=== PATIENT | male | born 1965 | race Caucasian/White ===

== ENCOUNTER → 2017-03-22 | Outpatient (CLI) | payer OTHER ==
[~2017-03-22] MED LIST: ANTIHISTAMINE; LEVO75TA PO; MULT1CAP16 PO; PANT1TAB48 PO
[2017-03-22 08:12] LABS: COMPLETE YES; HEMATOCRIT 42.3 % (42-52); IG% 0.4 %; LYMPH % 16.3 %; LYMPH ABS # 1.36 K/uL (1.2-3.4); MEAN CELL VOLUME 87.2 fL (80-100); MEAN CORPUSCULAR HEMOGLOBIN 30.3 pg (25-34); MEAN CORPUSCULAR HGB CONC 34.8 g/dl (32-36); MEAN PLATELET VOLUME 9.5 fL (7.4-10.4); MONO % 4.6 %; NEUT % 78.7 %; PLATELET COUNT 246 K/uL (130-400); RED BLOOD COUNT 4.85 M/uL (4.7-6.1); WHITE BLOOD COUNT 8.32 K/uL (4.8-10.8)
[2017-03-22 08:29] LABS: BLOOD UREA NITROGEN 18 mg/dl (7-18); CREATININE 0.73 mg/dl (0.60-1.40); GLUCOSE 118 mg/dl (70-99)
[2017-03-22 08:30] LABS: ALT/SGPT 36 U/L (12-78); BUN/CREATININE RATIO 25.2 (10-20); CALCIUM 8.6 mg/dl (8.5-10.1); CARBON DIOXIDE 23 mmol/L (21-32); CHLORIDE 110 mmol/L (98-107); CHOLESTEROL 208 mg/dl (0-200); POTASSIUM 4.1 mmol/L (3.5-5.1); SODIUM 140 mmol/L (136-145)
[2017-03-22 08:40] LABS: ALB/GLOB RATIO 1.1 (0.9-2); ALKALINE PHOSPHATASE 57 U/L (45-117); AST/SGOT 20 U/L (15-37); CHOLESTEROL/HDL RATIO 3.8; HDL CHOLESTEROL 55 mg/dl; LDL CHOLESTEROL CALCULATED 139 mg/dl; TRIGLYCERIDES 69 mg/dl (0-150); VERY LOW DENSITY LIPOPROT CALC 14 mg/dl
[2017-03-22 10:00] LABS: LYME DISEASE AB IGG NEG (NEG); LYME DISEASE AB IGM NEG (NEG)
== END | disposition home or self-care (01) ==
LOC: C.LABSPEC 07:48
PROVIDERS: ATTEND Nurse Practitioner
DX: E03.9 Hypothyroidism, unspecified (principal); Z13.220 Encounter for screening for lipoid disorders; R20.2 Paresthesia of skin; R51 Headache

== ENCOUNTER → 2017-03-27 | Outpatient (CLI) | payer OTHER ==
[~2017-03-27] MED LIST changes: +GADAVIST IV PRN
--- NOTE | 2017-03-27 15:44 | DIAGNOSTIC IMAGING REPORT ---
Brain MRI WITH AND WITHOUT CONTRAST HISTORY: MYELOPATHY, LIMB WEAKNESS, PARESTHESIA, headache TECHNIQUE: Multiplanar multisequence MRI of the brain was performed both before and after the intravenous administration of contrast. COMPARISON STUDY: None. FINDINGS: There are no areas of restricted diffusion to suggest acute infarction. The midline structures are intact. Small retention cyst within the left maxillary sinus and a few partially opacified bilateral inferior mastoid air cells. There is a single punctate focus of T2 hyperintensity within the left parietal subcortical white matter. This is of doubtful clinical significance. Remaining brain parenchyma demonstrates a normal signal intensity. The ventricles and sulci are within normal limits for age. There is no mass, hematoma, midline shift. The major vascular flow-voids at the skull base are well maintained. Postcontrast sequences show no areas of abnormal enhancement. IMPRESSION: No acute intracranial abnormality. Electronically signed by: Kota Madsen M.D. 03/27/2017 3:42 PM Dictated Date/Time: 03/27/2017 3:33 PM
--- NOTE | 2017-03-27 16:49 | DIAGNOSTIC IMAGING REPORT ---
MRI OF THE CERVICAL SPINE WITHOUT CONTRAST CLINICAL HISTORY: Myelopathy. Left-sided weakness. Paresthesias. COMPARISON: MRI of the cervical spine February 02, 2015. TECHNIQUE: Utilizing a 1.5 Jaimee magnet and dedicated coil, multiplanar, multiecho imaging of the cervical spine was performed without IV contrast. FINDINGS: Straightening of the normal cervical lordosis is noted. Alignment is otherwise anatomic. Vertebral body heights are maintained. There is no suspicious marrow replacement. A large T1 and T2 hyperintense lesion within the C7 vertebra is unchanged and consistent with a hemangioma. No intracanalicular mass or fluid collection is present. The brain will be reported separately. The paravertebral soft tissues are unremarkable. Cervical cord signal is normal. C2-C3: The central canal and neural foramen are patent. C3-C4: The central canal is patent. There is moderate to severe left neural foraminal stenosis due to uncovertebral projecting facet arthrosis. C4-C5: The central canal is patent. There is moderate right and mild left neural foraminal stenosis. C5-C6: A large left paracentral broad-based disc protrusion is noted that results in moderate narrowing of the left aspect of the canal. This indents the ventral aspect of the cord. There is no cord signal abnormality. This has mildly increased in size since exam of February 02, 2015. Severe left neural foraminal stenosis is noted. There is mild right neural foraminal stenosis at this level. C6-C7: Broad-based disc bulge is noted that result in mild narrowing of the central canal. This is unchanged since prior exam. Note is made of moderate to severe right neural foraminal stenosis. C7-T1: Disc bulge with small central disc protrusion results in mild narrowing of the central canal. Neural foramen are patent. IMPRESSION: 1. Large left paracentral broad-based disc protrusion at C5-C6 that results in moderate narrowing of the central canal. This indents the ventral aspect of the cord without cord signal abnormality. Mild increase in size of disc herniation since exam of February 02, 2015. 2. Mild central canal stenosis at C6-C7 which is similar to prior exam. 3. Moderate to severe multilevel neural foraminal stenosis, as detailed above. Electronically signed by: Oli Castano M.D. 03/27/2017 4:48 PM Dictated Date/Time: 03/27/2017 3:32 PM
== END | disposition home or self-care (01) ==
LOC: C.MRIBC 14:04
PROVIDERS: ATTEND Nurse Practitioner
DX: M50.20 Other cervical disc displacement, unspecified cervical region (principal); R29.898 Other symptoms and signs involving the musculoskeletal system; R20.2 Paresthesia of skin; R51 Headache

== ENCOUNTER → 2018-03-13 | Outpatient (CLI) | payer OTHER ==
[~2018-03-13] MED LIST changes: +ESCI1TAB9 PO; -GADAVIST IV PRN; +MELO7.5T5 PO; +OXYC-57 PO; -PANT1TAB48 PO; +TAMS0.4C38 PO
== END | disposition home or self-care (01) ==
LOC: C.LAB 12:03
PROVIDERS: ATTEND Internal Medicine
DX: Z00.00 Encounter for general adult medical examination without abnormal findings (principal)

== ENCOUNTER 2020-06-20 14:17 | Inpatient (IN) ==
[2020-06-20] MEDS ORDERED: SODIUM CHLORIDE 0.9% 1000ML 1,000 ML IV ONE (14:32)
[2020-06-20] MEDS ORDERED: ACETAMINOPHEN 325 MG TAB PO STA (14:40)
--- NOTE | 2020-06-20 14:40 | Emergency Department Note ---
Impression & Plan Hypoxia, COVID-19, Febrile, Post-op pain ED Provider Note NAME: SILVIA MUNGUIA AGE: 55 SEX: M : 1965 ARRIVES VIA: Ambulance INFORMANT: Patient ED PROVIDER(S): Ponce Kumar DO CHIEF COMPLAINT: Shortness of breath confusion HPI: Patient is a 55-year-old gentleman who presents to the ER for multiple complaints. He initially had surgery on his left knee back in . He had complications and consequently had surgery done at [facility] this past Saturday. He was initially tested for Covid and which came back negative for the procedure. On Saturday after he had the surgery he was notified that his Covid testing was positive. He was notified after the surgery as he was part of the forecast study and all of his testing for that came back positive. He notes on Saturday is when he started with a cough, shortness of breath and congestion. He also started with rigors and shaking chills. He has been having some intermittent confusion when he is waking up from naps or from sleeping. This generally occurs in the morning. He called EMS and was brought in for further work-up. ROS: See above HPI for pertinent positives & negatives. A total of 10 systems reviewed and were otherwise negative. PAST MEDICAL HISTORY:See Below PAST SURGICAL HISTORY:See Below FAMILY HISTORY:See Below SOCIAL HISTORY:See Below HOME MEDICATIONS:See Below ALLERGIES:See Below VITALS:See Below PHYSICAL EXAMINATION: GENERAL: Sitting up in bed, alert, mild distress, nontoxic, on nasal cannula EYE EXAM: normal conjunctiva. PERRL and EOM's grossly intact. OROPHARYNX: Mask in place NECK: supple, no nuchal rigidity, no adenopathy, non-tender LUNGS: Clear to auscultation. Normal chest wall mechanics HEART: no murmurs, S1 normal and S2 normal ABDOMEN: abdomen soft, non-tender, normo-active bowel sounds, no masses, no rebound or guarding. UPPER EXTREMITIES: upper extremities are grossly normal. LOWER EXTREMITIES: Left lower extremity with knee brace and Juan wrap in place which were removed. Incision appears to be clean dry and intact. Fair amount of bruising and swelling of the left knee. DP and PT 2 out of 4. NEURO EXAM: Normal sensorium, cranial nerves II-XII grossly intact, normal speech, no gross weakness of arms. MEDICAL DECISION MAKING: Patient is a 55-year-old male who is Covid positive. For left knee surgery last Saturday who presents the ER for confusion, fevers, cough and shortness of breath. IV was established blood work was obtained. Labs show a mild leukopenia 4.4 thousand. Faint anemia 12. INR was unremarkable. BMP with mild hyponatremia. Mild hypokalemia at 3.4 which was repleted orally. He was given 1.5 L of IV fluids. He was given oral Tylenol. Lactate was normal. LFTs and bilirubin was unremarkable. Troponin was detectable but not positive. Pro-Wes was essentially negative. UA was clean. CT angio of the chest showed multifocal pneumonia. There is also trace pleural effusion. He was given a dose of IV Levaquin. With his procalcitonin being normal I do favor that this is likely all reactive secondary to coronavirus. Discussed steroids as well as remdesivir. Will defer to the hospitalist for this as at this time as he wanted to hold on steroids and remdesivir. Patient remained on nasal cannula and was admitted to the hospital for further work-up. Triage Nursing notes reviewed. Prior medical records reviewed Vital Signs: reviewed and remarkable for febrile and hypertensive and hypoxic Differential diagnosis: Differential diagnosis includes etiologies such as sepsis, UTI, pneumonia, metabolic, electrolyte abnormalities, cardiac sources, intracerebral event, toxicologic, neurological, as well as others were entertained. ER treatment provided: See below Diagnostics interpreted by me: ECG: Sinus rhythm rate 88 Normal axis T wave inversion in lead III No PVCs QTC 415 Cardiac Monitoring: An order was placed for continuous cardiac monitoring. The monitor shows a rate of 88 with sinus rhythm. Laboratory studies: As stated above and show below. Imaging studies: CT Angio of the chest shows bilateral infiltrates Consultation(s): Discussed with Dr. Gr for further evaluation ED COURSE: Procedures: none Critical Care: I have personally spent 50 minutes of critical care time in the direct management of this patient. This includes bedside care, interpretation of diagnostic studies, and testing, discussion with consultants, patient, and [facility] ly members, and other required patient management activities. This 50 minutes is in excess of all separately billable procedures. Past Med/Surg History Medical History (Updated 06/20/20 @ 17:47 by Ponce Kumar DO) Anxiety GERD (gastroesophageal reflux disease) History of atrial fibrillation 2009 - s/p ablation - follows w/ Dr. Kinney History of atrial flutter History of colon polyps History of nephrolithiasis Hypothyroidism Lumbar spondylosis Right knee DJD Rupture of left quadriceps tendon Snores Surgical History History of cardiac catheterization no stents History of cardiac radiofrequency ablation x 2 (A.fib/A.flutter) History of carpal tunnel release Lt History of colonoscopy History of hernia repair History of lithotripsy History of repair of ACL Rt x 2 History of right inguinal hernia repair Hx of LASIK BL Family History Other No family history of adverse response to anesthesia Social History Smoking Status: Never smoker Second Hand Exposure: Yes (as a child); Hx Alcohol Use: Yes Alcohol type: beer, wine and hard liquor Hx Substance Use: No Preferred Language: Lithuanian Communication Ability: Effective 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 Required: No Current Living Situation: Spouse Feels Safe at Home: Yes Allergies Allergies Allergy/AdvReac Type Severity Reaction Status Date / Time almond Allergy Anaphylaxis Verified 06/20/20 16:56 apple Allergy Anaphylaxis Verified 06/20/20 16:56 bee venom protein (honey bee) Allergy Anaphylaxis Verified 06/20/20 16:57 carrot Allergy Anaphylaxis Verified 06/20/20 16:57 Home Meds Home Medications Medication Instructions Recorded Confirmed escitalopram oxalate 20 mg tablet 20 mg PO DAILY 07/21/19 06/20/20 multivitamin 1 tab PO DAILY 07/21/19 06/20/20 pantoprazole 40 mg PO DAILY PRN 01/16/20 06/20/20 epinephrine [EpiPen 2-Alvarez] 0.3 mg IM Q4H PRN 06/20/20 06/20/20 levothyroxine 88 mcg PO DAILY 06/20/20 06/20/20 Previous Rx's Medication Instructions Recorded aspirin [Adult Low Dose Aspirin] 81 mg PO BID #60 tab 01/20/20 oxycodone-acetaminophen [Percocet] 1 - 2 tab PO Q6H PRN #24 tab 01/20/20 Results & Data (ED) Vital Signs Vital Signs - 24 hr 06/20/20 14:21 06/20/20 14:28 06/20/20 14:30 Temperature Temperature Source Pulse Rate 88 87 86 Pulse Rate from SpO2 Sensor 87 87 86 Respiratory Rate 23 23 24 Blood Pressure 146/75 H Blood Pressure Mean 82 Pulse Oximetry 92 91 96 Oxygen Delivery Method Nasal Cannula Nasal Cannula Nasal Cannula Oxygen Flow Rate 3 3 3 Fraction of Inspired Oxygen SaO2/FiO2 Ratio Sepsis Recent Fever Within 48 Hours Sepsis New/Unexplained Change in Mental Status Sepsis Action Taken by Nursing 06/20/20 14:36 06/20/20 14:39 06/20/20 14:40 Temperature 39.5 C H Temperature Source Oral Pulse Rate Pulse Rate from SpO2 Sensor Respiratory Rate 20 Blood Pressure 146/75 H Blood Pressure Mean 98 Pulse Oximetry 87 L 97 Oxygen Delivery Method Room Air Nasal Cannula Nasal Cannula Oxygen Flow Rate 3 3 Fraction of Inspired Oxygen 3 SaO2/FiO2 Ratio 2900 Sepsis Recent Fever Within 48 Hours Yes Sepsis New/Unexplained Change in Mental Status Yes Sepsis Action Taken by Nursing Physician Notified 06/20/20 15:02 06/20/20 15:03 06/20/20 15:30 Temperature Temperature Source Pulse Rate 82 81 83 Pulse Rate from SpO2 Sensor 81 80 83 Respiratory Rate 23 24 18 Blood Pressure 131/71 Blood Pressure Mean 85 Pulse Oximetry 97 99 99 Oxygen Delivery Method Nasal Cannula Nasal Cannula Nasal Cannula Oxygen Flow Rate 3 3 3 Fraction of Inspired Oxygen SaO2/FiO2 Ratio Sepsis Recent Fever Within 48 Hours Sepsis New/Unexplained Change in Mental Status Sepsis Action Taken by Nursing 06/20/20 15:31 06/20/20 16:00 06/20/20 16:37 Temperature Temperature Source Pulse Rate 82 81 Pulse Rate from SpO2 Sensor 84 81 80 Respiratory Rate 22 20 Blood Pressure 133/78 121/59 L Blood Pressure Mean 91 71 Pulse Oximetry 98 97 Oxygen Delivery Method Nasal Cannula Nasal Cannula Oxygen Flow Rate 3 3 Fraction of Inspired Oxygen SaO2/FiO2 Ratio Sepsis Recent Fever Within 48 Hours Sepsis New/Unexplained Change in Mental Status Sepsis Action Taken by Nursing 06/20/20 16:41 06/20/20 16:42 06/20/20 16:50 Temperature 37.3 C Temperature Source Oral Pulse Rate 73 74 Pulse Rate from SpO2 Sensor 73 75 Respiratory Rate 22 22 Blood Pressure 128/70 Blood Pressure Mean 75 Pulse Oximetry 98 96 Oxygen Delivery Method Nasal Cannula Nasal Cannula Oxygen Flow Rate 3 3 Fraction of Inspired Oxygen SaO2/FiO2 Ratio Sepsis Recent Fever Within 48 Hours Sepsis New/Unexplained Change in Mental Status Sepsis Action Taken by Nursing 06/20/20 17:00 06/20/20 17:30 Temperature Temperature Source Pulse Rate 72 74 Pulse Rate from SpO2 Sensor 73 75 Respiratory Rate 20 24 Blood Pressure 116/64 115/66 Blood Pressure Mean 79 75 Pulse Oximetry 98 97 Oxygen Delivery Method Nasal Cannula Nasal Cannula Oxygen Flow Rate 3 3 Fraction of Inspired Oxygen SaO2/FiO2 Ratio Sepsis Recent Fever Within 48 Hours Sepsis New/Unexplained Change in Mental Status Sepsis Action Taken by Nursing Laboratory Data Result diagrams: 06/20/20 14:30 06/20/20 14:30 Lab Results 06/20/20 06/20/20 06/20/20 Range/Units 14:30 14:30 14:30 WBC 4.44 L (4.8-10.8) K/uL RBC 4.13 L (4.7-6.1) M/uL Hgb 12.4 L (14.0-18.0) g/dL POC Hgb (14.0-18.0) g/dl Hct 36.4 L (42-52) % POC Hct (42-52) % MCV 88.1 (80-100) fL MCH 30.0 (25-34) pg MCHC 34.1 (32-36) g/dL RDW Std Deviation 44.6 (36.4-46.3) fL RDW Coeff of Danika 13.7 (11.5-14.5) % Plt Count 204 (130-400) K/uL MPV 9.1 (7.4-10.4) fL Immature Gran % (Auto) 0.2 % Neut % (Auto) 69.6 % Lymph % (Auto) 23.0 % Pender % (Auto) 7.0 % Eos % (Auto) 0.0 % Baso % (Auto) 0.2 % Neut # (Auto) 3.09 (1.4-6.5) K/uL Lymph # (Auto) 1.02 L (1.2-3.4) K/uL Pender # (Auto) 0.31 (0.11-0.59) K/uL Eos # (Auto) 0.00 (0-0.5) K/uL Baso # (Auto) 0.01 (0-0.2) K/uL Immature Gran # (Auto) 0.01 (0.00-0.02) K/uL PT 11.0 (9.0-12.0) Seconds INR 1.0 (0.9-1.1) APTT 31.8 H (21.0-31.0) Seconds PTT Ratio 1.1 POC Sodium (135-144) mmol/L Sodium 133 L (136-145) mmol/L POC Potassium (3.3-5.0) mmol/L Potassium 3.4 L (3.5-5.1) mmol/L POC Chloride (101-112) mmol/L Chloride 98 (98-107) mmol/L Carbon Dioxide 30 (21-32) mmol/L POC Total CO2 (24-31) mmol/L Anion Gap 5.0 (3-11) POC Anion Gap (16-25) mmol/L POC BUN (7-18) mg/dl BUN 13 (7-18) mg/dl Creatinine 1.00 (0.6-1.4) mg/dl POC Creatinine (0.6-1.3) mg/dl Est Cr Clr Drug Dosing 111.3 ml/min Est GFR ( Amer) 97.1 Est GFR (Non-Af Amer) 83.8 BUN/Creatinine Ratio 12.7 (10-20) Glucose 102 H (70-99) mg/dl POC Glucose (other) (70-99) mg/dl Lactate (0.4-2.0) mmol/L Calcium 8.3 L (8.5-10.1) mg/dl POC Ioniz Calcium Judith (1.12-1.32) mmol/l Magnesium 2.1 (1.8-2.4) mg/dl Total Bilirubin 0.7 (0.2-1) mg/dl AST 66 H (15-37) U/L ALT 45 (12-78) U/L Alkaline Phosphatase 72 (45-117) U/L Troponin I 0.029 (0-0.045) ng/ml Total Protein 7.1 (6.4-8.2) gm/dl Albumin 3.2 L (3.4-5.0) gm/dl Globulin 3.9 (2.5-4.0) gm/dl Albumin/Globulin Ratio 0.8 L (0.9-2) Procalcitonin (0-0.5) ng/ml Urine Color Urine Appearance (Clear) Urine pH (4.5-7.5) Ur Specific Groom (1.000-1.030) Urine Protein (Negative) Urine Glucose (UA) (Negative) Urine Ketones (Negative) Urine Blood (Negative) Urine Nitrite (Negative) Urine Bilirubin (Negative) Urine Urobilinogen (Negative) Ur Leukocyte Esterase (Negative) Urine WBC (Auto) (0-5) /hpf Urine RBC (Auto) (0-4) /hpf U Hyaline Cast (Auto) (0-5) /lpf U Epithel Cells (Auto) (0-5) /lpf Urine Bacteria (Auto) (Negative) 06/20/20 06/20/20 06/20/20 Range/Units 14:30 14:30 14:33 WBC (4.8-10.8) K/uL RBC (4.7-6.1) M/uL Hgb (14.0-18.0) g/dL POC Hgb 11.9 L (14.0-18.0) g/dl Hct (42-52) % POC Hct 35 L (42-52) % MCV (80-100) fL MCH (25-34) pg MCHC (32-36) g/dL RDW Std Deviation (36.4-46.3) fL RDW Coeff of Danika (11.5-14.5) % Plt Count (130-400) K/uL MPV (7.4-10.4) fL Immature Gran % (Auto) % Neut % (Auto) % Lymph % (Auto) % Pender % (Auto) % Eos % (Auto) % Baso % (Auto) % Neut # (Auto) (1.4-6.5) K/uL Lymph # (Auto) (1.2-3.4) K/uL Pender # (Auto) (0.11-0.59) K/uL Eos # (Auto) (0-0.5) K/uL Baso # (Auto) (0-0.2) K/uL Immature Gran # (Auto) (0.00-0.02) K/uL PT (9.0-12.0) Seconds INR (0.9-1.1) APTT (21.0-31.0) Seconds PTT Ratio POC Sodium 133 L (135-144) mmol/L Sodium (136-145) mmol/L POC Potassium 3.4 (3.3-5.0) mmol/L Potassium (3.5-5.1) mmol/L POC Chloride 93 L (101-112) mmol/L Chloride (98-107) mmol/L Carbon Dioxide (21-32) mmol/L POC Total CO2 27 (24-31) mmol/L Anion Gap (3-11) POC Anion Gap 18.0 (16-25) mmol/L POC BUN 11 (7-18) mg/dl BUN (7-18) mg/dl Creatinine (0.6-1.4) mg/dl POC Creatinine 0.9 (0.6-1.3) mg/dl Est Cr Clr Drug Dosing ml/min Est GFR ( Amer) Est GFR (Non-Af Amer) BUN/Creatinine Ratio (10-20) Glucose (70-99) mg/dl POC Glucose (other) 103 H (70-99) mg/dl Lactate 1.2 (0.4-2.0) mmol/L Calcium (8.5-10.1) mg/dl POC Ioniz Calcium Judith 1.04 L (1.12-1.32) mmol/l Magnesium (1.8-2.4) mg/dl Total Bilirubin (0.2-1) mg/dl AST (15-37) U/L ALT (12-78) U/L Alkaline Phosphatase (45-117) U/L Troponin I (0-0.045) ng/ml Total Protein (6.4-8.2) gm/dl Albumin (3.4-5.0) gm/dl Globulin (2.5-4.0) gm/dl Albumin/Globulin Ratio (0.9-2) Procalcitonin 0.08 (0-0.5) ng/ml Urine Color Urine Appearance (Clear) Urine pH (4.5-7.5) Ur Specific Groom (1.000-1.030) Urine Protein (Negative) Urine Glucose (UA) (Negative) Urine Ketones (Negative) Urine Blood (Negative) Urine Nitrite (Negative) Urine Bilirubin (Negative) Urine Urobilinogen (Negative) Ur Leukocyte Esterase (Negative) Urine WBC (Auto) (0-5) /hpf Urine RBC (Auto) (0-4) /hpf U Hyaline Cast (Auto) (0-5) /lpf U Epithel Cells (Auto) (0-5) /lpf Urine Bacteria (Auto) (Negative) 06/20/20 Range/Units 17:00 WBC (4.8-10.8) K/uL RBC (4.7-6.1) M/uL Hgb (14.0-18.0) g/dL POC Hgb (14.0-18.0) g/dl Hct (42-52) % POC Hct (42-52) % MCV (80-100) fL MCH (25-34) pg MCHC (32-36) g/dL RDW Std Deviation (36.4-46.3) fL RDW Coeff of Danika (11.5-14.5) % Plt Count (130-400) K/uL MPV (7.4-10.4) fL Immature Gran % (Auto) % Neut % (Auto) % Lymph % (Auto) % Pender % (Auto) % Eos % (Auto) % Baso % (Auto) % Neut # (Auto) (1.4-6.5) K/uL Lymph # (Auto) (1.2-3.4) K/uL Pender # (Auto) (0.11-0.59) K/uL Eos # (Auto) (0-0.5) K/uL Baso # (Auto) (0-0.2) K/uL Immature Gran # (Auto) (0.00-0.02) K/uL PT (9.0-12.0) Seconds INR (0.9-1.1) APTT (21.0-31.0) Seconds PTT Ratio POC Sodium (135-144) mmol/L Sodium (136-145) mmol/L POC Potassium (3.3-5.0) mmol/L Potassium (3.5-5.1) mmol/L POC Chloride (101-112) mmol/L Chloride (98-107) mmol/L Carbon Dioxide (21-32) mmol/L POC Total CO2 (24-31) mmol/L Anion Gap (3-11) POC Anion Gap (16-25) mmol/L POC BUN (7-18) mg/dl BUN (7-18) mg/dl Creatinine (0.6-1.4) mg/dl POC Creatinine (0.6-1.3) mg/dl Est Cr Clr Drug Dosing ml/min Est GFR ( Amer) Est GFR (Non-Af Amer) BUN/Creatinine Ratio (10-20) Glucose (70-99) mg/dl POC Glucose (other) (70-99) mg/dl Lactate (0.4-2.0) mmol/L Calcium (8.5-10.1) mg/dl POC Ioniz Calcium Judith (1.12-1.32) mmol/l Magnesium (1.8-2.4) mg/dl Total Bilirubin (0.2-1) mg/dl AST (15-37) U/L ALT (12-78) U/L Alkaline Phosphatase (45-117) U/L Troponin I (0-0.045) ng/ml Total Protein (6.4-8.2) gm/dl Albumin (3.4-5.0) gm/dl Globulin (2.5-4.0) gm/dl Albumin/Globulin Ratio (0.9-2) Procalcitonin (0-0.5) ng/ml Urine Color Yellow Urine Appearance Clear (Clear) Urine pH 7.0 (4.5-7.5) Ur Specific Groom > 1.045 H (1.000-1.030) Urine Protein Trace H (Negative) Urine Glucose (UA) Negative (Negative) Urine Ketones Negative (Negative) Urine Blood Negative (Negative) Urine Nitrite Negative (Negative) Urine Bilirubin Negative (Negative) Urine Urobilinogen Negative (Negative) Ur Leukocyte Esterase Negative (Negative) Urine WBC (Auto) 1-5 (0-5) /hpf Urine RBC (Auto) 0-4 (0-4) /hpf U Hyaline Cast (Auto) 0 (0-5) /lpf U Epithel Cells (Auto) 10-20 H (0-5) /lpf Urine Bacteria (Auto) Negative (Negative) Administered Medications Discontinued Medications Acetaminophen (Acetaminophen 325 Mg Tab) 650 mg PO NOW STA Stop: 06/20/20 14:41 Last Admin: 06/20/20 15:21 Dose: 650 mg Documented by: [id number] Sodium Chloride (Nss 1000ml) 1,000 mls @ 999 mls/hr IV .Q1H1M ONE Stop: 06/20/20 15:32 Last Infusion: 06/20/20 16:10 Dose: 0 mls/hr Documented by: [id number] Admin: 06/20/20 14:43 Dose: 999 mls/hr Documented by: [id number] Levofloxacin/Dextrose (Levaquin/D5w) 750 mg in 150 mls @ 100 mls/hr IV NOW STA Stop: 06/20/20 16:51 Last Infusion: 06/20/20 17:14 Dose: 0 mls/hr Documented by: [id number] Admin: 06/20/20 15:26 Dose: 100 mls/hr Documented by: [id number] Sodium Chloride (Nss 1000ml) 500 mls @ 999 mls/hr IV .Q31M ONE Stop: 06/20/20 16:25 Last Admin: 06/20/20 17:10 Dose: 999 mls/hr Documented by: [id number] Ioversol (Optiray 320 125ml) 120 ml IV ONCE ONE Stop: 06/20/20 14:52 Last Admin: 06/20/20 14:52 Dose: 120 ml Documented by: [id number] Potassium Chloride (Potassium Chloride 10 Meq Tabcr) 40 meq PO NOW STA Stop: 06/20/20 16:01 Last Admin: 06/20/20 16:40 Dose: 40 meq Documented by: [id number] Discharge Plan Visit Data Chief Complaint: Shortness of Breath/Dyspnea ED Provider: Ponce Kumar Discharge Problem: Hypoxia, COVID-19, Febrile, Post-op pain Forms Stand Alone Forms: [facility] Prescriptions Prescriptions: No Action escitalopram oxalate [Lexapro] 20 mg tablet 20 mg PO DAILY RF: 0 multivitamin tablet 1 tab PO DAILY RF: 0 pantoprazole 40 mg tablet,delayed release (DR/EC) 40 mg PO DAILY PRN (Reason: Acid Reflux) RF: 0 aspirin [Adult Low Dose Aspirin] 81 mg tablet,delayed release (DR/EC) 81 mg PO BID Qty: 60 RF: 0 oxycodone-acetaminophen [Percocet] 5-325 mg tablet 1 - 2 tab PO Q6H PRN (Reason: pain) Qty: 24 RF: 0 levothyroxine 88 mcg tablet 88 mcg PO DAILY RF: 0 epinephrine [EpiPen 2-Alvarez] 0.3 mg/0.3 mL Auto-Injector 0.3 mg IM Q4H PRN (Reason: Allergic Reaction) RF: 0 Discharge Problem: Febrile Qualifiers: Fever type: unspecified Qualified Code(s): R50.9 - Fever, unspecified
[2020-06-20 14:43] LABS: Basophils # (auto) 0.01 K/uL (0-0.2); Basophils % (auto) 0.2 %; Hematocrit (blood only) 36.4 % (42-52); Hemoglobin 12.4 g/dL (14.0-18.0); Immature Granulocytes # (auto) 0.01 K/uL (0.00-0.02); Immature Granulocytes % (auto) 0.2 %; Lymphocytes # (auto) 1.02 K/uL (1.2-3.4); Mean Corpuscular Hgb Conc 34.1 g/dL (32-36); Mean Corpuscular Volume 88.1 fL (80-100); Mean Platelet Volume 9.1 fL (7.4-10.4); Monocytes # (auto) 0.31 K/uL (0.11-0.59); Neutrophils # (auto) 3.09 K/uL (1.4-6.5); Neutrophils % (auto) 69.6 %; Platelet Count 204 K/uL (130-400); RDW Coefficient of Variation 13.7 % (11.5-14.5); RDW Standard Deviation 44.6 fL (36.4-46.3); Red Blood Count 4.13 M/uL (4.7-6.1); White Blood Count 4.44 K/uL (4.8-10.8)
[2020-06-20 14:46] LABS: iSTAT Creatinine 0.9 mg/dl (0.6-1.3); iSTAT Hemoglobin 11.9 g/dl (14.0-18.0); iSTAT Ionized Calcium 1.04 mmol/l (1.12-1.32); iSTAT Potassium 3.4 mmol/L (3.3-5.0)
[2020-06-20] MEDS ORDERED: OPTIRAY 320 125ml IV ONE (14:51)
[2020-06-20 14:56] LABS: Partial Thromboplastin Ratio 1.1; Partial Thromboplastin Time 31.8 Seconds (21.0-31.0)
[2020-06-20 15:03] LABS: Albumin Level 3.2 gm/dl (3.4-5.0); BUN Creatinine Ratio 12.7 (10-20); Calcium 8.3 mg/dl (8.5-10.1); Creatinine Clr Calc Pharmacy 111.3 ml/min; Est GFR (African American) 97.1; Est GFR (Non-African American) 83.8; Magnesium 2.1 mg/dl (1.8-2.4); Potassium 3.4 mmol/L (3.5-5.1)
[2020-06-20 15:15] LABS: Albumin Globulin Ratio 0.8 (0.9-2); Bilirubin,Total 0.7 mg/dl (0.2-1); Globulin 3.9 gm/dl (2.5-4.0); Total Protein 7.1 gm/dl (6.4-8.2); Troponin I 0.029 ng/ml (0-0.045)
--- NOTE | 2020-06-20 15:15 | CT Scan Report ---
CT head/brain wo con CLINICAL HISTORY: 55 years-old Male with ams. Acutely altered mental status with hypoxia and shortne ss of breath TECHNIQUE: Multiple axial CT images of the head were obtained without contrast. A dose lowering tech nique was utilized adhering to the principles of ALARA. COMPARISON: CTA of the chest of same day FINDINGS: No acute intracranial hemorrhage, midline shift, intracranial mass, hydrocephalus, territorial ischem ia or abnormal extra-axial collection. The calvarium is intact. Small right mastoid effusion. Left mastoid air cells and paranasal sinuses are generally clear. Soft tissues and orbits are unremarkable. Pulmonary opacities are noted on the s cout localizer images. IMPRESSION: No acute intracranial abnormality. ACT 112: Negative or not required by law. The above report was generated using voice recognition software. It may contain grammatical, syntax o r spelling errors. Electronically signed by: Bradley Serra M.D. 06/20/2020 3:13 PM
--- NOTE | 2020-06-20 15:19 | CT Scan Report ---
CT ANGIOGRAM OF THE CHEST CLINICAL HISTORY: Dyspnea. Hypoxia. Recent surgery. COMPARISON STUDY: Chest x-ray dated 09/17/2019. TECHNIQUE: Following the IV administration of 120 cc of Optiray 320, CT angiogram of the chest was pe rformed from the upper abdomen to the thoracic inlet utilizing the pulmonary embolus protocol. Images are reviewed in the axial, sagittal, and coronal planes. 3-D MIPS images are created and assessed. I V contrast was administered without complication. A dose lowering technique was utilized adhering to the principles of ALARA. CT DOSE: 1547.71 mGy.cm FINDINGS: Thyroid: Imaged portions of the thyroid gland are normal in size and attenuation. Thoracic aorta: The thoracic aorta is normal in caliber and demonstrates standard 3-vessel arch anato my. No dissection is seen. Pulmonary vasculature: The pulmonary trunk is normal in caliber. There are no filling defects identif ied in main, lobar, or segmental pulmonary branches to suggest pulmonary embolus. Heart: The heart is enlarged and and without pericardial effusion. Lungs and pleural spaces: There is multifocal groundglass consolidation seen throughout both lungs. T here is trace right pleural effusion. The trachea and central airways are clear. Mediastinum: There is no mediastinal lymphadenopathy. Teena: Clear. Axillae: There is no axillary lymphadenopathy. Upper abdomen: The liver is enlarged and steatotic. A 1.3 cm cyst is noted in the right hepatic lobe. There is a small hiatal hernia. 1.9 cm cyst is seen in the upper pole of the right kidney. Skeletal structures: No lytic or blastic bony lesions are seen. IMPRESSION: 1. There is no evidence of pulmonary embolus in the main, lobar, or segmental pulmonary arteries. 2. Multifocal groundglass consolidation is seen throughout both lungs. This is typical for an infecti ous/inflammatory pneumonitis. 3. Trace right pleural effusion. 4. Cardiomegaly. ACT 112: Negative or not required by law. Electronically signed by: Praneeth Mccauley M.D. 06/20/2020 3:17 PM
[2020-06-20] MEDS ORDERED: levoFLOXacin/D5W 750 MG/150 ML BAG IV STA (15:22)
--- NOTE | 2020-06-20 15:46 | Electrocardiogram Report ---
Test Reason : Blood Pressure : / mmHG Vent. Rate : 084 BPM Atrial Rate : 084 BPM P-R Int : 144 ms QRS Dur : 106 ms QT Int : 352 ms P-R-T Axes : 007 -07 012 degrees QTc Int : 415 ms Normal sinus rhythm Incomplete right bundle branch block Borderline ECG When compared with ECG of 14-JAN-2019 09:07, Questionable change in QRS axis T wave amplitude has decreased in Anterior leads Confirmed by Charanjit Hanley ([id number]) on 06/20/2020 3:46:44 PM Referred By: Confirmed By:Charanjit Hanley
[2020-06-20] MEDS ORDERED: SODIUM CHLORIDE 0.9% 1000ML 500 ML IV ONE (15:55)
[2020-06-20] MEDS ORDERED: POTASSIUM CHLORIDE 10 MEQ TABCR PO STA (16:00)
[2020-06-20 17:31] LABS: Appearance Urine Clear (Clear); Bacteria Urine Automated Negative (Negative); Bilirubin Urine Negative (Negative); Blood Urine Negative (Negative); Cast Urine Automated 0 /lpf (0-5); Color Urine Yellow; Glucose Urine UA Negative (Negative); Ketones Urine Negative (Negative); Leukocyte Esterase Urine Negative (Negative); Nitrite Urine Negative (Negative); Protein Urine Trace (Negative); RBC Urine Automated 0-4 /hpf (0-4); Specific Gravity Urine > 1.045 (1.000-1.030); Urobilinogen Urine Negative (Negative)
--- NOTE | 2020-06-20 17:52 | History & Physical Report ---
Date of Service June 20, 2020 Assessment & Plan (1) COVID-19: Presented with fever, chills, rigors, cough, SOB, hypoxia, confusion. Onset of symptoms 5 days ago. Positive COVID-19 results 06/14 ([facility] study) and confirmed SARS-CoV-2 PCR 06/16. Radiographic findings on CTA chest consistent with COVID-19 pneumonia. Lymphocyte count = 1020. CRP = 6.99. ESR = 28. Procalcitonin = 0.08. Ferritin = 804. D-dimer = 950. COVID-specific therapies indicated in light of hypoxia and need for supplemental O2. Start therapy with dexamethasone and remdesivir. Follow LFT's. Pros and cons of convalescent plasma discussed; patient is familiar with FDA EUA. There may be benefit given onset of symptoms < 1 week. Patient would like to receive convalescent plasma and consent was obtained. Consult ID for their input. (2) Pneumonia due to 2019 novel coronavirus: As discussed above. Received levofloxacin in ED. Bacterial pneumonia very unlikely in light of normal procalcitonin; will not order additional antibiotic therapy. (3) Hypoxia: O2 sat 82% on RA at home. Acute hypoxia secondary to COVID-19 pneumonia. Supplemental O2 as necessary. (4) Altered mental status: Confused at home. O2 sats were 82% on RA. CT head negative. Confusion probably primarily secondary to hypoxia. May have toxic / metabolic encephalopathy secondary to COVID-19. Improved in ED. Follow. (5) Rupture of left quadriceps tendon: S/P repair 06/15/20. Continue knee brace, analgesics, VTE prophylaxis. (6) DVT prophylaxis: Increased risk for VTE due to (1) COVID-19 and (2) recent knee surgery. SQ enoxaparin. Ambulate as able. (7) Discharge planning issues: Anticipated discharge to home. Internal Medicine follow-up with Dr. Willis. History of Present Illness Chief Complaint: fever, malaise Primary Care Provider: Oscar Willis, DO 55 YO male followed by Dr. Willis for Internal Medicine and Dr. Kinney for Cardiology. History of atrial fibrillation / flutter and other problems as noted below. 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 Has been following protocol and using PPE as directed. Participating in [facility]'s study following SARS-CoV-2 testing longitudinally in healthcare workers. Testing had been negative. Scheduled for elective surgery for left knee injury. Preop SARS-CoV-2 PCR was negative on 06/10/20. Previously scheduled testing for [facility] study was done on 06/14/20. Left knee surgery was performed in [place] on 06/15/20. Developed fever, chills, rigors on return trip from [place]. He was informed that testing for [facility] study done on 06/14/20 showed positive results (need to verify details- ? PCR + antigen + antibodies). SARS-CoV-2 PCR positivity confirmed 06/16/20. No need for hospitalization at that time. Continued to have fever and malaise; also experienced cough and SOB. Spouse noted that he was somewhat confused this morning. EMS summoned. O2 sat was 82% on RA when they arrived. Brought to ED for further evaluation and management. Allergies Allergy/AdvReac Type Severity Reaction Status Date / Time almond Allergy Anaphylaxis Verified 06/20/20 16:56 apple Allergy Anaphylaxis Verified 06/20/20 16:56 bee venom protein (honey bee) Allergy Anaphylaxis Verified 06/20/20 16:57 carrot Allergy Anaphylaxis Verified 06/20/20 16:57 Home Medications Medication Instructions Recorded Confirmed Type escitalopram oxalate 20 mg tablet 20 mg PO DAILY 07/21/19 06/20/20 History multivitamin 1 tab PO DAILY 07/21/19 06/20/20 History pantoprazole 40 mg PO DAILY PRN 01/16/20 06/20/20 History aspirin [Adult Low Dose Aspirin] 81 mg PO BID #60 tab 01/20/20 06/20/20 Rx oxycodone-acetaminophen [Percocet] 1 - 2 tab PO Q6H PRN #24 tab 01/20/20 06/20/20 Rx epinephrine [EpiPen 2-Alvarez] 0.3 mg IM Q4H PRN 06/20/20 06/20/20 History levothyroxine 88 mcg PO DAILY 06/20/20 06/20/20 History Past Med/Surg History Medical History (Updated 06/21/20 @ 09:09 by Nikunj Kinney DO) Anxiety GERD (gastroesophageal reflux disease) History of atrial fibrillation 2009 - s/p ablation - follows w/ Dr. Kinney History of atrial flutter History of colon polyps History of nephrolithiasis Hypothyroidism Lumbar spondylosis Right knee DJD Rupture of left quadriceps tendon Snores Surgical History History of cardiac catheterization no stents History of cardiac radiofrequency ablation x 2 (A.fib/A.flutter) History of carpal tunnel release Lt History of colonoscopy History of hernia repair History of lithotripsy History of repair of ACL Rt x 2 History of right inguinal hernia repair Hx of LASIK BL Family History Father Prostate cancer Atrial fibrillation CHF (congestive heart failure) Stroke Mother Breast cancer Other No family history of adverse response to anesthesia Social History Smoking Status: Unknown if ever smoked Second Hand Exposure: Yes (as a child); Hx Alcohol Use: Yes Alcohol type: beer, wine and hard liquor Hx Substance Use: No Preferred Language: Portuguese Communication Ability: Effective Showcase Maker Required: No Beliefs That Will Affect Care: None Current Living Situation: Family Other Information That Helps Us Care for You: No Feels Safe at Home: Yes Safety Concerns: Feels Safe At This Time Assistive Devices: Crutches Review of Systems Constitutional: as per Subjective / HPI Respiratory: as per Subjective / HPI Cardiovascular: no chest pain and no palpitations Gastrointestinal: no nausea, no vomiting and no diarrhea/loose stools Musculoskeletal: no myalgia left knee pain Physical Exam Physical Exam: VS- as noted Constitutional- well nourished; appears to be acutely ill Eyes- PERRL, anicteric sclerae, conjunctivae normal ENMT- external ear and nose normal; oropharynx clear; dentition good Neck- trachea midline; no thyromegaly Respiratory- no respiratory distress; lungs clear Cardiovascular- RRR, no murmur/gallop/rub; no JVD; no pretibial edema; normal capillary refill Chest- no abnormalities Abdomen- normal bowel sounds, soft, nontender, nondistended; no palpable masses or hepatosplenomegaly Musculoskeletal- no cyanosis; left knee: healing incision; ecchymoses; no erythema or drainage Skin- warm & dry; normal color; no rashes Neurologic- no facial palsy; no dysarthria or aphasia; motor strength ext remities grossly intact Psychiatric- alert, oriented x 3; normal affect Lymphatic- no cervical adenopathy Results & Data Results & Data ([facility]) Vital Signs (Past 12 Hours) Vital Signs Temp Pulse Resp BP Pulse Ox 06/20/20 17:30 74 24 115/66 97 06/20/20 17:00 72 20 116/64 98 06/20/20 16:50 37.3 C 06/20/20 16:42 74 22 96 06/20/20 16:41 73 22 128/70 98 06/20/20 16:00 81 20 121/59 L 97 06/20/20 15:31 82 22 133/78 98 06/20/20 15:30 83 18 99 06/20/20 15:03 81 24 131/71 99 06/20/20 15:02 82 23 97 06/20/20 14:39 97 06/20/20 14:36 39.5 C H 20 146/75 H 87 L 06/20/20 14:30 86 24 96 06/20/20 14:28 87 23 91 06/20/20 14:21 88 23 146/75 H 92 Laboratory Results Laboratory Results - last 24 hr 06/20/20 06/20/20 06/20/20 14:30 14:30 14:30 WBC 4.44 L RBC 4.13 L Hgb 12.4 L POC Hgb Hct 36.4 L POC Hct MCV 88.1 MCH 30.0 MCHC 34.1 RDW Std Deviation 44.6 RDW Coeff of Danika 13.7 Plt Count 204 MPV 9.1 Immature Gran % (Auto) 0.2 Neut % (Auto) 69.6 Lymph % (Auto) 23.0 [place] % (Auto) 7.0 Eos % (Auto) 0.0 Baso % (Auto) 0.2 Neut # (Auto) 3.09 Lymph # (Auto) 1.02 L [place] # (Auto) 0.31 Eos # (Auto) 0.00 Baso # (Auto) 0.01 Immature Gran # (Auto) 0.01 ESR PT 11.0 INR 1.0 APTT 31.8 H PTT Ratio 1.1 D-Dimer POC Sodium Sodium 133 L POC Potassium Potassium 3.4 L POC Chloride Chloride 98 Carbon Dioxide 30 POC Total CO2 Anion Gap 5.0 POC Anion Gap POC BUN BUN 13 Creatinine 1.00 POC Creatinine Est Cr Clr Drug Dosing 111.3 Est GFR ( Amer) 97.1 Est GFR (Non-Af Amer) 83.8 BUN/Creatinine Ratio 12.7 Glucose 102 H POC Glucose (other) Lactate Calcium 8.3 L POC Ioniz Calcium Judith Magnesium 2.1 Ferritin Total Bilirubin 0.7 AST 66 H ALT 45 Alkaline Phosphatase 72 Troponin I 0.029 C-Reactive Protein Total Protein 7.1 Albumin 3.2 L Globulin 3.9 Albumin/Globulin Ratio 0.8 L Procalcitonin Urine Color Urine Appearance Urine pH Ur Specific [place] Urine Protein Urine Glucose (UA) Urine Ketones Urine Blood Urine Nitrite Urine Bilirubin Urine Urobilinogen Ur Leukocyte Esterase Urine WBC (Auto) Urine RBC (Auto) U Hyaline Cast (Auto) U Epithel Cells (Auto) Urine Bacteria (Auto) Blood Type Antibody Screen 06/20/20 06/20/20 06/20/20 14:30 14:30 14:30 WBC RBC Hgb POC Hgb Hct POC Hct MCV MCH MCHC RDW Std Deviation RDW Coeff of Danika Plt Count MPV Immature Gran % (Auto) Neut % (Auto) Lymph % (Auto) [place] % (Auto) Eos % (Auto) Baso % (Auto) Neut # (Auto) Lymph # (Auto) [place] # (Auto) Eos # (Auto) Baso # (Auto) Immature Gran # (Auto) ESR 28 H PT INR APTT PTT Ratio D-Dimer POC Sodium Sodium POC Potassium Potassium POC Chloride Chloride Carbon Dioxide POC Total CO2 Anion Gap POC Anion Gap POC BUN BUN Creatinine POC Creatinine Est Cr Clr Drug Dosing Est GFR ( Amer) Est GFR (Non-Af Amer) BUN/Creatinine Ratio Glucose POC Glucose (other) Lactate 1.2 Calcium POC Ioniz Calcium Judith Magnesium Ferritin Total Bilirubin AST ALT Alkaline Phosphatase Troponin I C-Reactive Protein Total Protein Albumin Globulin Albumin/Globulin Ratio Procalcitonin 0.08 Urine Color Urine Appearance Urine pH Ur Specific [place] Urine Protein Urine Glucose (UA) Urine Ketones Urine Blood Urine Nitrite Urine Bilirubin Urine Urobilinogen Ur Leukocyte Esterase Urine WBC (Auto) Urine RBC (Auto) U Hyaline Cast (Auto) U Epithel Cells (Auto) Urine Bacteria (Auto) Blood Type Antibody Screen 06/20/20 06/20/20 06/20/20 14:33 17:00 20:57 WBC RBC Hgb POC Hgb 11.9 L Hct POC Hct 35 L MCV MCH MCHC RDW Std Deviation RDW Coeff of Danika Plt Count MPV Immature Gran % (Auto) Neut % (Auto) Lymph % (Auto) [place] % (Auto) Eos % (Auto) Baso % (Auto) Neut # (Auto) Lymph # (Auto) [place] # (Auto) Eos # (Auto) Baso # (Auto) Immature Gran # (Auto) ESR PT INR APTT PTT Ratio D-Dimer POC Sodium 133 L Sodium POC Potassium 3.4 Potassium POC Chloride 93 L Chloride Carbon Dioxide POC Total CO2 27 Anion Gap POC Anion Gap 18.0 POC BUN 11 BUN Creatinine POC Creatinine 0.9 Est Cr Clr Drug Dosing Est GFR ( Amer) Est GFR (Non-Af Amer) BUN/Creatinine Ratio Glucose POC Glucose (other) 103 H Lactate Calcium POC Ioniz Calcium Judith 1.04 L Magnesium Ferritin Total Bilirubin AST ALT Alkaline Phosphatase Troponin I C-Reactive Protein Total Protein Albumin Globulin Albumin/Globulin Ratio Procalcitonin Urine Color Yellow Urine Appearance Clear Urine pH 7.0 Ur Specific [place] > 1.045 H Urine Protein Trace H Urine Glucose (UA) Negative Urine Ketones Negative Urine Blood Negative Urine Nitrite Negative Urine Bilirubin Negative Urine Urobilinogen Negative Ur Leukocyte Esterase Negative Urine WBC (Auto) 1-5 Urine RBC (Auto) 0-4 U Hyaline Cast (Auto) 0 U Epithel Cells (Auto) 10-20 H Urine Bacteria (Auto) Negative Blood Type A Positive Antibody Screen NEGATIVE 06/20/20 06/20/20 20:57 20:57 WBC RBC Hgb POC Hgb Hct POC Hct MCV MCH MCHC RDW Std Deviation RDW Coeff of Danika Plt Count MPV Immature Gran % (Auto) Neut % (Auto) Lymph % (Auto) [place] % (Auto) Eos % (Auto) Baso % (Auto) Neut # (Auto) Lymph # (Auto) [place] # (Auto) Eos # (Auto) Baso # (Auto) Immature Gran # (Auto) ESR PT INR APTT PTT Ratio D-Dimer 950 H* POC Sodium Sodium POC Potassium Potassium POC Chloride Chloride Carbon Dioxide POC Total CO2 Anion Gap POC Anion Gap POC BUN BUN Creatinine POC Creatinine Est Cr Clr Drug Dosing Est GFR ( Amer) Est GFR (Non-Af Amer) BUN/Creatinine Ratio Glucose POC Glucose (other) Lactate Calcium POC Ioniz Calcium Judith Magnesium Ferritin 804.7 H Total Bilirubin AST ALT Alkaline Phosphatase Troponin I C-Reactive Protein 6.99 H Total Protein Albumin Globulin Albumin/Globulin Ratio Procalcitonin Urine Color Urine Appearance Urine pH Ur Specific [place] Urine Protein Urine Glucose (UA) Urine Ketones Urine Blood Urine Nitrite Urine Bilirubin Urine Urobilinogen Ur Leukocyte Esterase Urine WBC (Auto) Urine RBC (Auto) U Hyaline Cast (Auto) U Epithel Cells (Auto) Urine Bacteria (Auto) Blood Type Antibody Screen Diagnostic Findings CT HEAD IMPRESSION: No acute intracranial abnormality. Electronically signed by: Bradley Serra M.D. 06/20/2020 3:13 PM CTA CHEST IMPRESSION: 1. There is no evidence of pulmonary embolus in the main, lobar, or segmental pulmonary arteries. 2. Multifocal groundglass consolidation is seen throughout both lungs. This is typical for an infectious/inflammatory pneumonitis. 3. Trace right pleural effusion. 4. Cardiomegaly. Electronically signed by: Praneeth Mccauley M.D. 06/20/2020 3:17 PM ECG Additional Comments: EKG performed at 1434 reviewed and demonstrated NSR at 84 / min, no acute changes. Code Status & VTE Plan VTE Prophylaxis Plan VTE Prophylaxis will be ordered: Yes
[2020-06-20] MEDS ORDERED: oxyCODONE/ACETAMINOPHEN 5mg/325mg TAB PO PRN ×2 (20:35)
[2020-06-20] MEDS ORDERED: REMDESIVIR 200 MG in SODIUM CHLORIDE 0.9% 210 ML IV ONE (21:00)
[2020-06-20] MEDS: dexAMETHasone 6 MG in SYRINGE 0 ML IV SCH (21:35)
[2020-06-20] MEDS: ENOXAPARIN INJ 40 MG/0.4 ML SYR SQ SCH (21:35)
[2020-06-20 21:49] LABS: D Dimer 950 ug/L FEU (0-500)
[2020-06-20 21:50] LABS: C Reactive Protein 6.99 mg/dl (0-0.29); Ferritin 804.7 ng/ml (8-388)
[2020-06-21] MEDS: SODIUM CHLORIDE 0.9% 10ML FLUSH IV SCH (00:04)
[2020-06-21] MEDS ORDERED: METOPROLOL TARTRATE 1 MG/ML VIAL IV PRN (00:17)
[2020-06-21 06:23] LABS: Basophils # (auto) 0.01 K/uL (0-0.2); Basophils % (auto) 0.3 %; Hematocrit (blood only) 36.6 % (42-52); Hemoglobin 12.1 g/dL (14.0-18.0); Immature Granulocytes # (auto) 0.02 K/uL (0.00-0.02); Immature Granulocytes % (auto) 0.6 %; Mean Corpuscular Hemoglobin 29.7 pg (25-34); Mean Corpuscular Hgb Conc 33.1 g/dL (32-36); Mean Corpuscular Volume 89.7 fL (80-100); Mean Platelet Volume 9.8 fL (7.4-10.4); Monocytes # (auto) 0.18 K/uL (0.11-0.59); Monocytes % (auto) 5.1 %; Neutrophils # (auto) 2.71 K/uL (1.4-6.5); Platelet Count 215 K/uL (130-400); RDW Coefficient of Variation 13.9 % (11.5-14.5); RDW Standard Deviation 46.3 fL (36.4-46.3); Red Blood Count 4.08 M/uL (4.7-6.1); White Blood Count 3.52 K/uL (4.8-10.8)
[2020-06-21] MEDS: LEVOTHYROXINE SODIUM 88 MCG TABLET PO SCH (06:40)
[2020-06-21 07:00] LABS: Albumin Level 2.6 gm/dl (3.4-5.0); BUN Creatinine Ratio 13.1 (10-20); Bilirubin Direct 0.1 mg/dl (0-0.2); Creatinine Clr Calc Pharmacy 119.6 ml/min; Est GFR (Non-African American) 91.4; Potassium 4.2 mmol/L (3.5-5.1)
[2020-06-21 07:02] LABS: Albumin Globulin Ratio 0.7 (0.9-2); Bilirubin,Total 0.5 mg/dl (0.2-1); Globulin 3.7 gm/dl (2.5-4.0); Total Protein 6.4 gm/dl (6.4-8.2)
[2020-06-21] MEDS: ESCITALOPRAM OXALATE 20 MG TAB PO SCH (08:26)
--- NOTE | 2020-06-21 09:17 | Cardiology Consultation ---
Date of Consultation June 21, 2020 Assessment & Plan (1) Pneumonia due to 2019 novel coronavirus: Continue supplementary oxygen, Dexamethasone, Remdesivir. (2) Paroxysmal atrial fibrillation: History of symptomatic paroxysmal atrial fibrillation and atrial flutter for which he underwent pulmonary vein isolation and caval tricuspid isthmus ablation in October, at [facility] performed by Dr. Rolon. No recurrence of AF / AFL on Zio Monitor in 2017. History of angiographically normal coronary arteries on cardiac catheterization at [facility] 01/30/20. Likely had recurrent of AF due to strain of systemic illness. Troponin negative x 1. No pericardial effusion on CT. Start low dose metoprolol to help maintain SR. Continue Lovenox 40 mg daily for venous thromboprophylaxis. If has recurrent AF, may need to consider starting Eliquis. History of Present Illness Attending Physician: Abraham Gr MD History of Present Illness Mr Alvarez is a 55 year old male assessed in cardiology consultation per the request of Dr Vega and Dr Gr for the evaluation of paroxysmal atrial fibrillation. In and effort to minimize staff exposure, consultation performed by review of records and data and telephone conversation with patient. T max was 39.5 C on 06/20/20 at 14:36. Afebrile at present. He has a past history of symptomatic atrial fibrillation and atrial flutter for which he underwent ablation without interim clinic recurrence. Patient admitted with findings of COVID-19 related pneumonia , having developed rigors and cough shortly after orthopeadic surgery in [place]. He was observed to have atrial fibrillation with rapid ventricular response last last night , duration about 1 hour with conversion back to SR shortly after receiving metoprolol 5 mg x 1 dose. Telemetry this am reveals SR at 72 bpm. Hypoxia noted overnight with oxygen requirement up to 15 L by non-rebreather mask. No down to 3 L nasal cannula and pulse oxymetry 93%. Patient awake and oriented this am, feeling subjectively improved compared to several hours ago. Allergies Allergy/AdvReac Type Severity Reaction Status Date / Time almond Allergy Anaphylaxis Verified 06/20/20 16:56 apple Allergy Anaphylaxis Verified 06/20/20 16:56 bee venom protein (honey bee) Allergy Anaphylaxis Verified 06/20/20 16:57 carrot Allergy Anaphylaxis Verified 06/20/20 16:57 Home Medications Medication Instructions Recorded Confirmed Type escitalopram oxalate 20 mg tablet 20 mg PO DAILY 07/21/19 06/20/20 History multivitamin 1 tab PO DAILY 07/21/19 06/20/20 History pantoprazole 40 mg PO DAILY PRN 01/16/20 06/20/20 History aspirin [Adult Low Dose Aspirin] 81 mg PO BID #60 tab 01/20/20 06/20/20 Rx oxycodone-acetaminophen [Percocet] 1 - 2 tab PO Q6H PRN #24 tab 01/20/20 06/20/20 Rx epinephrine [EpiPen 2-Alvarez] 0.3 mg IM Q4H PRN 06/20/20 06/20/20 History levothyroxine 88 mcg PO DAILY 06/20/20 06/20/20 History Patient History Medical History (Updated 06/21/20 @ 09:09 by Nikunj Kinney DO) Anxiety GERD (gastroesophageal reflux disease) History of atrial fibrillation 2008 - s/p ablation - follows w/ Dr. Kinney History of atrial flutter History of colon polyps History of nephrolithiasis Hypothyroidism Lumbar spondylosis Right knee DJD Rupture of left quadriceps tendon Snores Surgical History History of cardiac catheterization no stents History of cardiac radiofrequency ablation x 2 (A.fib/A.flutter) History of carpal tunnel release Lt History of colonoscopy History of hernia repair History of lithotripsy History of repair of ACL Rt x 2 History of right inguinal hernia repair Hx of LASIK BL Family History Father Prostate cancer Atrial fibrillation CHF (congestive heart failure) Stroke Mother Breast cancer Other No family history of adverse response to anesthesia Social History Smoking Status: Unknown if ever smoked Second Hand Exposure: Yes (as a child); Hx Alcohol Use: Yes Alcohol type: beer, wine and hard liquor Hx Substance Use: No Preferred Language: Samoan Communication Ability: Effective Athletics Teacher Required: No Beliefs That Will Affect Care: None Current Living Situation: Family Other Information That Helps Us Care for You: No Feels Safe at Home: Yes Safety Concerns: Feels Safe At This Time Assistive Devices: Crutches Review of Systems Review of Systems: All systems reviewed & are unremarkable except as noted in HPI & below Physical Exam Physical Exam: Temp Pulse Resp BP Pulse Ox 37.1 C 73 18 123/78 93 06/21/20 07:54 06/21/20 07:54 06/21/20 07:54 06/21/20 07:54 06/21/20 07:54 as noted telephonic evaluation performed with no in person physical exam. Results & Data ([facility]) Vital Signs (Past 12 Hours) Vital Signs Temp Pulse Pulse Resp BP BP Pulse Ox 06/21/20 07:54 37.1 C 73 18 123/78 93 06/21/20 03:49 36.6 C 67 20 113/67 93 06/21/20 02:30 96 06/21/20 00:46 88 126/83 06/21/20 00:10 93 06/21/20 00:00 37.9 C H 88 22 123/75 88 L 06/20/20 23:45 155 H 06/20/20 23:16 137 H Laboratory Results Cardiac Enzymes 06/20/20 06/21/20 Range/Units 14:30 05:32 AST 66 H 76 H (15-37) U/L Troponin I 0.029 (0-0.045) ng/ml Coagulation 06/20/20 Range/Units 14:30 PT 11.0 (9.0-12.0) Seconds APTT 31.8 H (21.0-31.0) Seconds CBC 06/20/20 06/21/20 Range/Units 14:30 05:32 WBC 4.44 L 3.52 L (4.8-10.8) K/uL RBC 4.13 L 4.08 L (4.7-6.1) M/uL Hgb 12.4 L 12.1 L (14.0-18.0) g/dL Hct 36.4 L 36.6 L (42-52) % Plt Count 204 215 (130-400) K/uL Neut # (Auto) 3.09 2.71 (1.4-6.5) K/uL Lymph # (Auto) 1.02 L 0.60 L (1.2-3.4) K/uL [place] # (Auto) 0.31 0.18 (0.11-0.59) K/uL Eos # (Auto) 0.00 0.00 (0-0.5) K/uL Baso # (Auto) 0.01 0.01 (0-0.2) K/uL Comprehensive Metabolic Panel 06/20/20 06/21/20 Range/Units 14:30 05:32 Sodium 133 L 136 (136-145) mmol/L Potassium 3.4 L 4.2 D (3.5-5.1) mmol/L Chloride 98 102 (98-107) mmol/L Carbon Dioxide 30 29 (21-32) mmol/L BUN 13 12 (7-18) mg/dl Creatinine 1.00 0.93 (0.6-1.4) mg/dl Glucose 102 H 122 H (70-99) mg/dl Calcium 8.3 L 8.0 L (8.5-10.1) mg/dl Direct Bilirubin 0.1 (0-0.2) mg/dl AST 66 H 76 H (15-37) U/L ALT 45 50 (12-78) U/L Alkaline Phosphatase 72 70 (45-117) U/L Total Protein 7.1 6.4 (6.4-8.2) gm/dl Albumin 3.2 L 2.6 L (3.4-5.0) gm/dl Intake and Output 06/20/20 06/21/20 06/21/20 22:59 06:59 14:59 Intake Total 2740 / 3090 350 / 3090 Output Total 2 / 452 450 / 452 Balance 2738 / 2638 -100 / 2638 Intake: IV 1650 / 1900 250 / 1900 Remdesivir 200 mg In Nss 210 ml 250 / 250 @ 125 mls/hr IV ONE ONE Rx#: [id number] Nss 1000ML 500 ml @ 999 mls/hr 1500 / 1500 IV .Q31M ONE Rx#:[id number] LEVAQUIN/D5W 750 mg In 150 ml @ 150 / 150 100 mls/hr IV NOW STA Rx#: [id number] Oral 1090 / 1190 100 / 1190 Output: Urine 450 / 450 # Bowel Movements 2 / 2 Other: # Unmeasured Voids 2 Weight 118.6 kg 118.4 kg Weight Measurement Method [facility] Diagnostic Findings EKG performed 06/20/20 at 14:34 revealed SR at 84 bpm with IRBBB, unchanged compared to previous with chronic IRBB pattern. Summary of radiology report of CTA chest 06/20/20: 1. There is no evidence of pulmonary embolus in the main, lobar, or segmental pulmonary arteries. 2. Multifocal groundglass consolidation is seen throughout both lungs. This is typical for an infectious/inflammatory pneumonitis. 3. Trace right pleural effusion. 4. Cardiomegaly.
[2020-06-21] MEDS: ONDANSETRON INJ 2 MG/ML 2 ML VIAL IV PRN ×2 (09:31→20:42)
--- NOTE | 2020-06-21 09:57 | XRay Report ---
XR chest 1V portable CLINICAL HISTORY: COVID-19 pneumonia COMPARISON STUDY: Chest CT June 20, 2020. FINDINGS: There is no pneumothorax or pleural effusion. Multifocal bilateral airspace opacities are s imilar to chest CT of June 20, 2020. Mild cardiomegaly is unchanged. Mediastinal contours are sta ble. The appearance of the chest is unchanged. IMPRESSION: No significant change in multifocal airspace opacities consistent with an infectious pro cess. ACT 112: Negative or not required by law. Electronically signed by: Oli Castano M.D. 06/21/2020 9:55 AM
[2020-06-21] MEDS: METOPROLOL TARTRATE 25 MG TAB PO SCH ×2 (10:42→20:59)
[2020-06-21] MEDS ORDERED: oxyCODONE HCL IR 5 MG TAB (IMMEDIATE RELEASE) PO PRN ×2 (15:31)
[2020-06-21] MEDS: REMDESIVIR 100 MG in SODIUM CHLORIDE 0.9% 230 ML IV SCH (20:56)
[2020-06-21] MEDS: ENOXAPARIN INJ 40 MG/0.4 ML SYR SQ SCH (20:57)
[2020-06-21] MEDS: GABAPENTIN 100 MG CAP PO SCH (20:57)
--- NOTE | 2020-06-21 21:02 | Ultrasound Report ---
US venous doppler LE LT HISTORY: 55 years-old Male s/p left knee surgery, elevated D-dimer, COVID-19 acute swelling of the l ower extremities COMPARISON: None TECHNIQUE: Multiple real-time sonographic images of the left lower extremity deep venous structures w ere obtained assessing grayscale appearance, color and spectral flow FINDINGS: Normal flow, compressibility, phasicity and augmentation of the left lower extremity deep venous stru ctures. IMPRESSION: No sonographic evidence of deep venous thrombosis. ACT 112: Negative or not required by law. The above report was generated using voice recognition software. It may contain grammatical, syntax o r spelling errors. Electronically signed by: Bradley Serra M.D. 06/21/2020 9:00 PM
--- NOTE | 2020-06-21 21:24 | Hospitalist Progress Note ---
Date of Service June 21, 2020 Assessment & Plan (1) COVID-19: Presented with fever, chills, rigors, cough, SOB, hypoxia, confusion. Onset of symptoms 5 days ago. Results from [place] [facility] study 06/14: [employer]ES [employer]ASING [employer]ENT, oral, and saliva PCR's positive, qualitative antibodies negative. Confirmed SARS-CoV-2 PCR 06/16. Radiographic findings on CTA chest consistent with COVID-19 pneumonia. Lymphocyte count = 1020 > 600. CRP = 6.99. ESR = 28. Procalcitonin = 0.08. Ferritin = 804. D-dimer = 950. COVID-specific therapies indicated in light of hypoxia and need for supplemental O2. Receiving therapy with dexamethasone and remdesivir- today is day # 2. Follow LFT's. Patient would like to receive convalescent plasma and consent was obtained. ID consulted for their input. Continue remdesivir x 5 days. Continue dexamethasone for up to 10 days or time of discharge, whichever comes first. (2) Pneumonia due to 2019 novel coronavirus: As discussed above. Received levofloxacin in ED. Bacterial pneumonia very unlikely in light of normal procalcitonin; will not order additional antibiotic therapy. (3) Hypoxia: O2 sat 82% on RA at home. Acute hypoxia secondary to COVID-19 pneumonia. Continue supplemental O2 as necessary. (4) Paroxysmal atrial fibrillation: History of atrial fib / flutter, s/p ablation. PAF last night. Converted to NSR after receiving IV metoprolol. K low yesterday, 4.2 today. Mg 2.1 yesterday. Seen in consultation by Cardiology. Started on metoprolol 12.5 mg BID. Low [id number] score. Back in NSR. No indication for therapeutic dosing of anticoagulants at this time. Reconsider anticoagulation if NSR not maintained. (5) Altered mental status: Confused at home. O2 sats were 82% on RA. CT head negative. Confusion probably primarily secondary to hypoxia. May have toxic / metabolic encephalopathy secondary to COVID-19. Improved in ED. Follow. (6) Rupture of left quadriceps tendon: S/P repair 06/15/20. Continue knee brace, analgesics, VTE prophylaxis. (7) Elevated d-dimer: D-dimer = 950. CTA negative for PE. Venous duplex LLE negative for DVT. (8) Do not resuscitate status: Per discussion with patient. (9) DVT prophylaxis: Increased risk for VTE due to (1) COVID-19 and (2) recent knee surgery. SQ enoxaparin. Ambulate as able. (10) Discharge planning issues: Anticipated discharge to home. Internal Medicine follow-up with Dr. Willis. Admission and Anticipated Discharge Date Admission Date: June 20, 2020 Subjective Recheck for COVID-19 pneumonia and other problems. Patient seen in their room around 1500. Paroxysmal AF last night with associated worsening hypoxia. Received IV metoprolol and converted to NSR. Oxygenating well today on 4 L NC. Occasional nonproductive cough. Some mid-chest discomfort. Review of Systems: Constitutional- no fever. Cardiac- as noted above. Pulmonary- as noted above. GI- no nausea, vomiting, diarrhea, melena, hematochezia. - no urinary symptoms. Otherwise, as noted above. Physical Exam Constitutional: no acute distress Eyes: + anicteric sclerae Respiratory: no respiratory distress Auscultation: + rales (few scattered); no wheezes Cardiovascular: Rate/Rhythm: regular rate and regular rhythm Vessels: no JVD Extremities: no calf tenderness and no edema Gastrointestinal (Abdomen): normal bowel sounds, soft, nontender, no hepatosplenomegaly Musculoskeletal: Extremities: + extremities abnormal to inspection (left knee immobilized with brace) and no cyanosis Skin: no rashes, warm and dry Psychiatric: Orientation: alert and oriented x 3 Results & Data Results & Data ([facility]) Vital Signs (Past 12 Hours) Vital Signs Temp Pulse Pulse Pulse Resp BP Pulse Ox 06/21/20 19:09 37.5 C 70 18 105/64 94 06/21/20 16:08 36.9 C 69 19 111/65 93 06/21/20 16:00 74 06/21/20 10:57 36.8 C 72 18 103/68 91 Laboratory Results Laboratory Results - last 24 hr 06/20/20 06/21/20 06/21/20 20:57 05:32 05:32 WBC 3.52 L RBC 4.08 L Hgb 12.1 L Hct 36.6 L MCV 89.7 MCH 29.7 MCHC 33.1 RDW Std Deviation 46.3 RDW Coeff of Danika 13.9 Plt Count 215 MPV 9.8 Immature Gran % (Auto) 0.6 Neut % (Auto) 77.0 Lymph % (Auto) 17.0 [place] % (Auto) 5.1 Eos % (Auto) 0.0 Baso % (Auto) 0.3 Neut # (Auto) 2.71 Lymph # (Auto) 0.60 L [place] # (Auto) 0.18 Eos # (Auto) 0.00 Baso # (Auto) 0.01 Immature Gran # (Auto) 0.02 Sodium 136 Potassium 4.2 D Chloride 102 Carbon Dioxide 29 Anion Gap 5.0 BUN 12 Creatinine 0.93 Est Cr Clr Drug Dosing 119.6 Est GFR ( Amer) 106.0 Est GFR (Non-Af Amer) 91.4 BUN/Creatinine Ratio 13.1 Glucose 122 H Calcium 8.0 L Total Bilirubin 0.5 Direct Bilirubin 0.1 AST 76 H ALT 50 Alkaline Phosphatase 70 Total Protein 6.4 Albumin 2.6 L Globulin 3.7 Albumin/Globulin Ratio 0.7 L Blood Type A Positive Antibody Screen NEGATIVE Diagnostic Findings PORTABLE CHEST X-RAY Reviewed by the undersigned and formally interpreted by Radiology: IMPRESSION: No significant change in multifocal airspace opacities consistent with an infectious process. Electronically signed by: Oli Castano M.D. 06/21/2020 9:55 AM VENOUS DUPLEX LLE IMPRESSION: No sonographic evidence of deep venous thrombosis. Electronically signed by: Bradley Serra M.D. 06/21/2020 9:00 PM
[2020-06-21] MEDS: ACETAMINOPHEN 325 MG TAB PO PRN (22:31)
[2020-06-21] MEDS: dexAMETHasone 6 MG in SYRINGE 0 ML IV SCH (22:33)
[2020-06-21] MEDS ORDERED: PANTOprazole 40 MG TAB PO ONE (23:26)
[2020-06-22] MEDS: SODIUM CHLORIDE 0.9% 10ML FLUSH IV SCH ×2 (00:38→21:52)
[2020-06-22] MEDS: LEVOTHYROXINE SODIUM 88 MCG TABLET PO SCH (05:51)
[2020-06-22 06:21] LABS: Basophils # (auto) 0.01 K/uL (0-0.2); Basophils % (auto) 0.2 %; Hematocrit (blood only) 35.1 % (42-52); Hemoglobin 11.5 g/dL (14.0-18.0); Immature Granulocytes # (auto) 0.04 K/uL (0.00-0.02); Immature Granulocytes % (auto) 0.6 %; Lymphocytes # (auto) 0.76 K/uL (1.2-3.4); Lymphocytes % (auto) 12.2 %; Mean Corpuscular Hemoglobin 29.2 pg (25-34); Mean Corpuscular Hgb Conc 32.8 g/dL (32-36); Mean Corpuscular Volume 89.1 fL (80-100); Mean Platelet Volume 9.8 fL (7.4-10.4); Monocytes # (auto) 0.31 K/uL (0.11-0.59); Platelet Count 228 K/uL (130-400); RDW Coefficient of Variation 13.7 % (11.5-14.5); RDW Standard Deviation 45.4 fL (36.4-46.3); Red Blood Count 3.94 M/uL (4.7-6.1); White Blood Count 6.22 K/uL (4.8-10.8)
[2020-06-22 06:34] LABS: Albumin Level 2.6 gm/dl (3.4-5.0); BUN Creatinine Ratio 20.1 (10-20); Bilirubin Direct 0.2 mg/dl (0-0.2); Calcium 8.4 mg/dl (8.5-10.1); Creatinine Clr Calc Pharmacy 142.5 ml/min; Est GFR (Non-African American) 100.9; Potassium 4.4 mmol/L (3.5-5.1)
[2020-06-22 06:40] LABS: Albumin Globulin Ratio 0.7 (0.9-2); Bilirubin,Total 0.5 mg/dl (0.2-1); Globulin 3.6 gm/dl (2.5-4.0); Total Protein 6.2 gm/dl (6.4-8.2)
[2020-06-22] MEDS: GABAPENTIN 100 MG CAP PO SCH ×3 (08:12→20:35)
[2020-06-22] MEDS: PANTOprazole 40 MG TAB PO SCH (08:12)
[2020-06-22] MEDS: METOPROLOL TARTRATE 25 MG TAB PO SCH ×2 (08:12→20:34)
[2020-06-22] MEDS: ESCITALOPRAM OXALATE 20 MG TAB PO SCH (08:13)
--- NOTE | 2020-06-22 09:35 | XRay Report ---
XR chest 1V portable HISTORY: 55 years-old Male ff up for Covid PNA, Hypoxia acute shortness of breath with hypoxia COMPARISON: Chest radiograph 06/21/2020 TECHNIQUE: Portable AP view of the chest FINDINGS: Cardiac silhouette is mildly enlarged. Multifocal bilateral airspace opacities appear stable from com parison. There is no pneumothorax or pleural effusion. Bones appear grossly intact. IMPRESSION: Unchanged bilateral airspace opacities suggestive of multifocal pneumonia. ACT 112: Negative or not required by law. The above report was generated using voice recognition software. It may contain grammatical, syntax o r spelling errors. Electronically signed by: Bradley Serra M.D. 06/22/2020 9:33 AM
--- NOTE | 2020-06-22 09:48 | Cardiology Progress Note ---
Date of Service June 22, 2020 Assessment & Plan (1) Pneumonia due to 2019 novel coronavirus: Afebrile overnight. Hypoxia noted, O2 now at 4L NC, from 3 L. Mild hemoptysis. Continue supportive care with O2, Dexamethasone, Remdesivir. (2) Paroxysmal atrial fibrillation: Was in and out of AF for about 1 hour PM of 06/20-:. H/o remote AF and AFL ablation. [id number] score of 0. Continue low dose metoprolol. SR in 60s noted at present. (3) Rupture of left quadriceps tendon: 1 week post op. No DVT on venous duplex 06/21. Continue lovenox 40 mg SQ daily. Looking ahead, need to consider best VTE prophylaxis approach for pt post discharge given recent orthopaedic surgery , and COVID-19 illness, anticipated stasis due to illness. If hemoptysis resolved, may be reasonable to consider DVT prophylaxis or full anticoagulation dose lovenox. (4) Do not resuscitate status: Per patient wishes, would like to be DNR, DNI. Admission and Anticipated Discharge Date Admission Date: June 20, 2020 Subjective Patient interviewed by phone. Discussed updates with his nurse by phone. Data, telemetry reviewed. Pt remains in SR, no recurrence of Atrial fibrillation or flutter. He notes increased congestion, and one episode of blood tinged sputum. Oxygen requirements increased from 3 L to 4 L overnight. Review of Systems Review of Systems: All systems reviewed & are unremarkable except as noted in HPI & below Physical Exam Physical Exam: Temp Pulse Resp BP Pulse Ox 36.8 C 66 18 126/69 95 06/22/20 07:44 06/22/20 07:44 06/22/20 07:44 06/22/20 07:44 06/22/20 07:44 No in person physical examination performed. Results & Data ([facility]) Vital Signs (Past 12 Hours) Vital Signs Temp Pulse Pulse Resp BP BP Pulse Ox 06/22/20 07:44 36.8 C 66 18 126/69 95 06/22/20 04:16 37.0 C 65 18 110/64 92 06/22/20 01:03 36.9 C 67 18 108/62 93 06/22/20 00:21 37.1 C 63 18 117/69 92 06/22/20 00:00 37.1 C 68 18 117/69 92 06/21/20 23:59 64 06/21/20 23:51 37.0 C 63 18 116/68 94 06/21/20 23:36 37.0 C 64 18 122/60 94 06/21/20 23:14 36.8 C 65 12 116/66 94 Laboratory Results Cardiac Enzymes 06/22/20 Range/Units 05:30 AST 84 H (15-37) U/L CBC 06/22/20 Range/Units 05:30 WBC 6.22 (4.8-10.8) K/uL RBC 3.94 L (4.7-6.1) M/uL Hgb 11.5 L (14.0-18.0) g/dL Hct 35.1 L (42-52) % Plt Count 228 (130-400) K/uL Neut # (Auto) 5.10 (1.4-6.5) K/uL Lymph # (Auto) 0.76 L (1.2-3.4) K/uL [place] # (Auto) 0.31 (0.11-0.59) K/uL Eos # (Auto) 0.00 (0-0.5) K/uL Baso # (Auto) 0.01 (0-0.2) K/uL Comprehensive Metabolic Panel 06/22/20 Range/Units 05:30 Sodium 140 (136-145) mmol/L Potassium 4.4 (3.5-5.1) mmol/L Chloride 106 (98-107) mmol/L Carbon Dioxide 29 (21-32) mmol/L BUN 16 (7-18) mg/dl Creatinine 0.78 (0.6-1.4) mg/dl Glucose 141 H (70-99) mg/dl Calcium 8.4 L (8.5-10.1) mg/dl Direct Bilirubin 0.2 D (0-0.2) mg/dl AST 84 H (15-37) U/L ALT 70 (12-78) U/L Alkaline Phosphatase 61 (45-117) U/L Total Protein 6.2 L (6.4-8.2) gm/dl Albumin 2.6 L (3.4-5.0) gm/dl Intake and Output 06/21/20 06/22/20 06/22/20 22:59 06:59 14:59 Intake Total 200 / 867 467 / 867 Balance 200 / 867 467 / 867 Intake: IV 250 / 250 Remdesivir 100 mg In Nss 230 ml 250 / 250 @ 250 mls/hr IV Q24H [facility] Rx#: [id number] Oral 200 / 400 Intake (Blood Product) Amt Covid 19 Conv Plasma 2 Unit [id number]
[2020-06-22] MEDS ORDERED: GLUCOSE 40% GEL 15 GM TUBE PO PRN (14:48)
[2020-06-22] MEDS ORDERED: CARBOHYDRATES FOR HYPOGLYCEMIA PO PRN (14:48)
[2020-06-22] MEDS ORDERED: GLUCAGON FOR INJ 1 MG VIAL SQ PRN (14:48)
[2020-06-22] MEDS ORDERED: GLUCOSE 10 TABS/TUBE PO PRN (14:48)
[2020-06-22] MEDS ORDERED: DEXTROSE 50% 50 ML SYRINGE IV PRN (14:48)
--- NOTE | 2020-06-22 17:14 | Hospitalist Progress Note ---
Date of Service June 22, 2020 Assessment & Plan (1) COVID-19: per Dr. Gr' notes: Presented with fever, chills, rigors, cough, SOB, hypoxia, confusion. Onset of symptoms 5 days ago. 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 Confirmed SARS-CoV-2 PCR 06/16. Radiographic findings on CTA chest consistent with COVID-19 pneumonia. Lymphocyte count = 1020 > 600. CRP = 6.99. ESR = 28. Procalcitonin = 0.08. Ferritin = 804. D-dimer = 950. COVID-specific therapies indicated in light of hypoxia and need for supplemental O2. 06/22/20 remains on 3-4L O2 via nasal cannula feels tired but breathing is better compared to admission repeat CXR: no change AST mildly elevated but < 100 continue Remdesevir + Decadron Day #4 Flutter valve ordered, Prone positioning discussed Lovenox for DVT prophylaxis (2) Pneumonia due to 2018 novel coronavirus: per Dr. Gr' notes: As discussed above. Received levofloxacin in ED. Bacterial pneumonia very unlikely in light of normal procalcitonin; will not order additional antibiotic therapy. (3) Hypoxia: per Dr. Gr' notes: O2 sat 82% on RA at home. Acute hypoxia secondary to COVID-19 pneumonia. wean off O2 accordingly (4) Paroxysmal atrial fibrillation: per Dr. Gr' notes: History of atrial fib / flutter, s/p ablation. PAF last night. Converted to NSR after receiving IV metoprolol. K low yesterday, 4.2 today. Mg 2.1 yesterday. Seen in consultation by Cardiology. Started on metoprolol 12.5 mg BID. Low [id number] score. Back in NSR. No indication for therapeutic dosing of anticoagulants at this time. Reconsider anticoagulation if NSR not maintained. 06/22 remains in SR tolerating Metoprolol PO continue to monitor appreciate Dr. Kinney's recommendations (5) Altered mental status: per Dr. Gr' notes: May have toxic / metabolic encephalopathy secondary to COVID-19. Confused at home. O2 sats were 82% on RA. CT head negative. Confusion probably primarily secondary to hypoxia. Improved in ED. --back to baseline (6) Rupture of left quadriceps tendon: S/P repair 06/15/20. Continue knee brace, analgesics, VTE prophylaxis. pain well controlled Lovenox for DVT prophylaxis (7) Elevated d-dimer: D-dimer = 950. CTA negative for PE. Venous duplex LLE negative for DVT. (8) Do not resuscitate status: Per discussion with patient. (9) DVT prophylaxis: Increased risk for VTE due to (1) COVID-19 and (2) recent knee surgery. SQ enoxaparin. Ambulate as able. (10) Discharge planning issues: Anticipated discharge to home. Internal Medicine follow-up with Dr. Willis. Admission and Anticipated Discharge Date Admission Date: June 20, 2020 Subjective ff up for Acute hypoxic respiratory failure, COVID 19 pneumonia called patient via telephone this AM, to gather subjective information, ROS, discuss labs, plan of care seen at bedside in the afternoon around 315pm resting, sitting up, not in distress, somewhat weak, nasal cannula off- fell on the floor has been on 3-4 L via [place] states he feels very tired, has intermittent cough sputum- blood tinged breathing is improved compared to past few days appetite is fair, no nausea/vomiting, diarrhea, fever/chills left knee pain is manageable was able to take a shower this morning with no problems no other symptoms Review of Systems Review of Systems: All systems reviewed & are unremarkable except as noted in Subjective Physical Exam Physical Exam: General- oriented x 3, not in distress, speaks in sentences with no effort or accessory muscle use Eyes- anicteric Neck- no JVD Lungs- (+) scattered rales bilaterally, no wheezing good air entry bilaterally Heart- normal rate, regular rhythm; no murmurs Abdomen- normal bowel sounds, nondistended, soft, nontender Extremities- no pretibial edema, no calf tenderness left lower ext: heavy dressing in place Neuro- alert, oriented x 3; no gross focal neurologic deficits Skin- warm & dry Results & Data Results & Data ([facility]) Vital Signs (Past 12 Hours) Vital Signs Temp Pulse Pulse Resp BP Pulse Ox 06/22/20 11:46 37.0 C 60 18 108/60 91 06/22/20 08:00 56 L 06/22/20 07:44 36.8 C 66 18 126/69 95 Laboratory Results Laboratory Results - last 24 hr 06/20/20 06/22/20 06/22/20 20:57 05:30 05:30 WBC 6.22 RBC 3.94 L Hgb 11.5 L Hct 35.1 L MCV 89.1 MCH 29.2 MCHC 32.8 RDW Std Deviation 45.4 RDW Coeff of Danika 13.7 Plt Count 228 MPV 9.8 Immature Gran % (Auto) 0.6 Neut % (Auto) 82.0 Lymph % (Auto) 12.2 [place] % (Auto) 5.0 Eos % (Auto) 0.0 Baso % (Auto) 0.2 Neut # (Auto) 5.10 Lymph # (Auto) 0.76 L [place] # (Auto) 0.31 Eos # (Auto) 0.00 Baso # (Auto) 0.01 Immature Gran # (Auto) 0.04 H Sodium 140 Potassium 4.4 Chloride 106 Carbon Dioxide 29 Anion Gap 5.0 BUN 16 Creatinine 0.78 Est Cr Clr Drug Dosing 142.5 Est GFR ( Amer) 117.0 Est GFR (Non-Af Amer) 100.9 BUN/Creatinine Ratio 20.1 H Glucose 141 H Calcium 8.4 L Total Bilirubin 0.5 Direct Bilirubin 0.2 D AST 84 H ALT 70 Alkaline Phosphatase 61 Total Protein 6.2 L Albumin 2.6 L Globulin 3.6 Albumin/Globulin Ratio 0.7 L Blood Type A Positive Antibody Screen NEGATIVE
[2020-06-22] MEDS: MULTIVITAMIN TAB PO SCH (17:56)
[2020-06-22] MEDS: ASCORBIC ACID 500 MG TAB PO SCH (17:57)
[2020-06-22] MEDS: CHOLECALCIFEROL 1,000 UNITS 25 MCG TAB PO SCH (17:57)
[2020-06-22] MEDS: ZINC SULFATE 220 MG CAPSULE PO SCH (17:57)
[2020-06-22] MEDS: INSULIN ASPART 100 UNITS/ML 3 ML PEN SC SCH ×2 (18:35→21:00)
[2020-06-22] MEDS: REMDESIVIR 100 MG in SODIUM CHLORIDE 0.9% 230 ML IV SCH (20:33)
[2020-06-22] MEDS: dexAMETHasone 6 MG in SYRINGE 0 ML IV SCH (20:33)
[2020-06-22] MEDS: ACETAMINOPHEN 325 MG TAB PO PRN (20:34)
[2020-06-22] MEDS: ENOXAPARIN INJ 40 MG/0.4 ML SYR SQ SCH (20:35)
[2020-06-23 06:36] LABS: Basophils # (auto) 0.01 K/uL (0-0.2); Basophils % (auto) 0.1 %; Hematocrit (blood only) 36.9 % (42-52); Hemoglobin 12.1 g/dL (14.0-18.0); Immature Granulocytes # (auto) 0.07 K/uL (0.00-0.02); Lymphocytes % (auto) 12.6 %; Mean Corpuscular Hemoglobin 29.4 pg (25-34); Mean Corpuscular Hgb Conc 32.8 g/dL (32-36); Mean Corpuscular Volume 89.6 fL (80-100); Mean Platelet Volume 9.6 fL (7.4-10.4); Monocytes # (auto) 0.42 K/uL (0.11-0.59); Monocytes % (auto) 5.9 %; Neutrophils # (auto) 5.72 K/uL (1.4-6.5); Neutrophils % (auto) 80.4 %; Platelet Count 266 K/uL (130-400); RDW Coefficient of Variation 13.8 % (11.5-14.5); RDW Standard Deviation 45.7 fL (36.4-46.3); Red Blood Count 4.12 M/uL (4.7-6.1); White Blood Count 7.12 K/uL (4.8-10.8)
[2020-06-23] MEDS: LEVOTHYROXINE SODIUM 88 MCG TABLET PO SCH (06:39)
[2020-06-23 07:03] LABS: Albumin Level 2.7 gm/dl (3.4-5.0); BUN Creatinine Ratio 21.1 (10-20); Bilirubin Direct 0.2 mg/dl (0-0.2); Calcium 8.6 mg/dl (8.5-10.1); Creatinine Clr Calc Pharmacy 138.7 ml/min; Est GFR (African American) 116.3; Est GFR (Non-African American) 100.4; Potassium 4.4 mmol/L (3.5-5.1)
[2020-06-23 07:06] LABS: Albumin Globulin Ratio 0.8 (0.9-2); Bilirubin,Total 0.6 mg/dl (0.2-1); Globulin 3.5 gm/dl (2.5-4.0); Total Protein 6.2 gm/dl (6.4-8.2)
[2020-06-23] MEDS: ESCITALOPRAM OXALATE 20 MG TAB PO SCH (08:52)
[2020-06-23] MEDS: METOPROLOL TARTRATE 25 MG TAB PO SCH ×2 (08:52→20:46)
[2020-06-23] MEDS: CHOLECALCIFEROL 1,000 UNITS 25 MCG TAB PO SCH (08:53)
[2020-06-23] MEDS: PANTOprazole 40 MG TAB PO SCH (08:53)
[2020-06-23] MEDS: ACETAMINOPHEN 325 MG TAB PO PRN (08:53)
[2020-06-23] MEDS: ZINC SULFATE 220 MG CAPSULE PO SCH (08:53)
[2020-06-23] MEDS: GABAPENTIN 100 MG CAP PO SCH ×3 (08:53→20:46)
[2020-06-23] MEDS: ASCORBIC ACID 500 MG TAB PO SCH (08:53)
[2020-06-23] MEDS: INSULIN ASPART 100 UNITS/ML 3 ML PEN SC SCH ×4 (09:06→21:00)
[2020-06-23 09:52] LABS: D Dimer 1280 ug/L FEU (0-500)
[2020-06-23 09:55] LABS: C Reactive Protein 1.83 mg/dl (0-0.29); Ferritin 911.9 ng/ml (8-388)
[2020-06-23] MEDS: guaiFENesin 600 MG TABCR PO SCH ×2 (10:17→20:45)
[2020-06-23] MEDS: MULTIVITAMIN TAB PO SCH (10:17)
--- NOTE | 2020-06-23 12:31 | Cardiology Progress Note ---
Date of Service June 23, 2020 Assessment & Plan (1) Pneumonia due to 2019 novel coronavirus: Still with significant oxygen requirement, 4 L NC Continue present treatment. (2) Paroxysmal atrial fibrillation: Currently SB at 55 bpm noted on telemetry. Did have a recurrent brief AF run on 06/22/20 12:12 am of 18 beast in duration. As noted [id number] score is 0, however given recent quadricep tendon repair, and COVID-19 , may be reasonable to consider anticoagulation. Pt has a telemed follow up with ortho today, at which time pt plans ask thoughts from a surgery perspective. Admission and Anticipated Discharge Date Admission Date: June 20, 2020 Subjective Not able to connect with patient by phone yet today. Physical Exam Physical Exam: Temp Pulse Resp BP Pulse Ox 36.4 C L 59 L 22 110/71 93 06/23/20 11:22 06/23/20 11:22 06/23/20 11:22 06/23/20 11:22 06/23/20 11:22 Results & Data ([facility]) Vital Signs (Past 12 Hours) Vital Signs Temp Pulse Pulse Resp BP Pulse Ox 06/23/20 11:22 36.4 C L 59 L 22 110/71 93 06/23/20 10:58 56 L 06/23/20 07:37 36.4 C L 74 20 126/79 94 06/23/20 04:26 36.7 C 62 22 108/71 90 Laboratory Results Cardiac Enzymes 06/23/20 06/23/20 Range/Units 05:33 05:33 AST 96 H (15-37) U/L Lactate Dehydrogenase 572 H (87-241) U/L CBC 06/23/20 Range/Units 05:33 WBC 7.12 (4.8-10.8) K/uL RBC 4.12 L (4.7-6.1) M/uL Hgb 12.1 L (14.0-18.0) g/dL Hct 36.9 L (42-52) % Plt Count 266 (130-400) K/uL Neut # (Auto) 5.72 (1.4-6.5) K/uL Lymph # (Auto) 0.90 L (1.2-3.4) K/uL [place] # (Auto) 0.42 (0.11-0.59) K/uL Eos # (Auto) 0.00 (0-0.5) K/uL Baso # (Auto) 0.01 (0-0.2) K/uL Comprehensive Metabolic Panel 06/23/20 Range/Units 05:33 Sodium 140 (136-145) mmol/L Potassium 4.4 (3.5-5.1) mmol/L Chloride 107 (98-107) mmol/L Carbon Dioxide 28 (21-32) mmol/L BUN 17 (7-18) mg/dl Creatinine 0.79 (0.6-1.4) mg/dl Glucose 122 H (70-99) mg/dl Calcium 8.6 (8.5-10.1) mg/dl Direct Bilirubin 0.2 (0-0.2) mg/dl AST 96 H (15-37) U/L ALT 98 H (12-78) U/L Alkaline Phosphatase 64 (45-117) U/L Total Protein 6.2 L (6.4-8.2) gm/dl Albumin 2.7 L (3.4-5.0) gm/dl Intake and Output 06/22/20 06/23/20 06/23/20 22:59 06:59 14:59 Intake Total 1290 / 1410 120 / 1410 Balance 1290 / 1410 120 / 1410 Intake: IV 250 / 250 Remdesivir 100 mg In Nss 230 ml 250 / 250 @ 250 mls/hr IV Q24H [facility] Rx#: [id number] Oral 1040 / 1160 120 / 1160 Other: # Unmeasured Voids 1 2 Weight 118.4 kg 115 kg Weight Measurement Method Standing Scale
--- NOTE | 2020-06-23 19:38 | Hospitalist Progress Note ---
Date of Service June 23, 2020 Assessment & Plan (1) COVID-19: per Dr. Gr' notes: Presented with fever, chills, rigors, cough, SOB, hypoxia, confusion. Onset of symptoms 5 days ago. 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 Confirmed SARS-CoV-2 PCR 06/16. Radiographic findings on CTA chest consistent with COVID-19 pneumonia. Lymphocyte count = 1020 > 600. CRP = 6.99. ESR = 28. Procalcitonin = 0.08. Ferritin = 804. D-dimer = 950. COVID-specific therapies indicated in light of hypoxia and need for supplemental O2. 06/23/2020 remains on 3-4L O2 via nasal cannula Clinically, patient is improving slowly repeat CXR: no change Liver function and renal function stable D-dimer and ferritin slightly elevated, ESR and CRP improving, LDH elevated, will repeat markers in 2 days continue Remdesevir + Decadron Day #4 Flutter valve ordered, Prone positioning discussed Lovenox for DVT prophylaxis (2) Pneumonia due to 2019 novel coronavirus: per Dr. Gr' notes: As discussed above. Received levofloxacin in ED. Bacterial pneumonia very unlikely in light of normal procalcitonin; will not order additional antibiotic therapy. (3) Hypoxia: per Dr. Gr' notes: O2 sat 82% on RA at home. Acute hypoxia secondary to COVID-19 pneumonia. wean off O2 accordingly (4) Paroxysmal atrial fibrillation: per Dr. Gr' notes: History of atrial fib / flutter, s/p ablation. PAF last night. Converted to NSR after receiving IV metoprolol. K low yesterday, 4.2 today. Mg 2.1 yesterday. Seen in consultation by Cardiology. Started on metoprolol 12.5 mg BID. Low [id number] score. Back in NSR. No indication for therapeutic dosing of anticoagulants at this time. Reconsider anticoagulation if NSR not maintained. 06/23 Episode of A. fib morning of 06/22/2020, remains in SR tolerating Metoprolol PO Long-term anticoagulation not made at this point, chads vasc score 0 continue to monitor appreciate Dr. Kinney's recommendations (5) Altered mental status: per Dr. Gr' notes: May have toxic / metabolic encephalopathy secondary to COVID-19. Confused at home. O2 sats were 82% on RA. CT head negative. Confusion probably primarily secondary to hypoxia. Improved in ED. --back to baseline (6) Rupture of left quadriceps tendon: S/P repair 06/15/20. Continue knee brace, analgesics, VTE prophylaxis. pain well controlled Lovenox for DVT prophylaxis-1 more week per orthopedic surgeon (7) Elevated d-dimer: D-dimer = 950. CTA negative for PE. Venous duplex LLE negative for DVT. Increased to 1200, repeat in 2 days (8) Do not resuscitate status: Per discussion with patient. (9) DVT prophylaxis: Increased risk for VTE due to (1) COVID-19 and (2) recent knee surgery. SQ enoxaparin. Ambulate as able. (10) Discharge planning issues: Anticipated discharge to home. Internal Medicine follow-up with Dr. Willis. Admission and Anticipated Discharge Date Admission Date: June 20, 2020 Subjective Follow-up for Covid pneumonia, acute hypoxic respiratory failure Seen resting in bed side chair, comfortable, not in distress, on 3 to 4 L nasal cannula States he feels slightly better today compared to yesterday Still hypoxic though on room air after ambulating from the bathroom, 82% on room air Feels okay he is on a 3 to 4 L of nasal cannula Hemoptysis, sputum production is improving Denies chest pain Appetite fair Left knee pain well controlled No other symptom Review of Systems Review of Systems: All systems reviewed & are unremarkable except as noted in Subjective Physical Exam Physical Exam: General- oriented x 3, not in distress, speaks in sentences with no effort or accessory muscle use Eyes- anicteric Neck- no JVD Lungs-positive mild crackles diffusely bilaterally, improved compared to yesterday No wheezing, good air entry bilaterally Heart- normal rate, regular rhythm; no murmurs Abdomen- normal bowel sounds, nondistended, soft, nontender Extremities- no pretibial edema, no calf tenderness Left lower extremity, heavy dressing in place, immobilizer in place Neuro- alert, oriented x 3; no gross focal neurologic deficits Skin- warm & dry Results & Data Results & Data ([facility]) Vital Signs (Past 12 Hours) Vital Signs Temp Pulse Pulse Resp BP Pulse Ox 06/23/20 18:26 63 06/23/20 15:41 36.3 C L 59 L 18 107/68 96 06/23/20 11:22 36.4 C L 59 L 22 110/71 93 06/23/20 10:58 56 L Laboratory Results Laboratory Results - last 24 hr 06/23/20 06/23/20 06/23/20 05:33 05:33 05:33 WBC 7.12 RBC 4.12 L Hgb 12.1 L Hct 36.9 L MCV 89.6 MCH 29.4 MCHC 32.8 RDW Std Deviation 45.7 RDW Coeff of Danika 13.8 Plt Count 266 MPV 9.6 Immature Gran % (Auto) 1.0 Neut % (Auto) 80.4 Lymph % (Auto) 12.6 [place] % (Auto) 5.9 Eos % (Auto) 0.0 Baso % (Auto) 0.1 Neut # (Auto) 5.72 Lymph # (Auto) 0.90 L [place] # (Auto) 0.42 Eos # (Auto) 0.00 Baso # (Auto) 0.01 Immature Gran # (Auto) 0.07 H ESR D-Dimer 1280 H* Sodium 140 Potassium 4.4 Chloride 107 Carbon Dioxide 28 Anion Gap 5.0 BUN 17 Creatinine 0.79 Est Cr Clr Drug Dosing 138.7 Est GFR ( Amer) 116.3 Est GFR (Non-Af Amer) 100.4 BUN/Creatinine Ratio 21.1 H Glucose 122 H POC Glucose Calcium 8.6 Ferritin Total Bilirubin 0.6 Direct Bilirubin 0.2 AST 96 H ALT 98 H Alkaline Phosphatase 64 Lactate Dehydrogenase C-Reactive Protein Total Protein 6.2 L Albumin 2.7 L Globulin 3.5 Albumin/Globulin Ratio 0.8 L 06/23/20 06/23/20 06/23/20 05:33 05:33 05:33 WBC RBC Hgb Hct MCV MCH MCHC RDW Std Deviation RDW Coeff of Danika Plt Count MPV Immature Gran % (Auto) Neut % (Auto) Lymph % (Auto) [place] % (Auto) Eos % (Auto) Baso % (Auto) Neut # (Auto) Lymph # (Auto) [place] # (Auto) Eos # (Auto) Baso # (Auto) Immature Gran # (Auto) ESR 16 H D-Dimer Sodium Potassium Chloride Carbon Dioxide Anion Gap BUN Creatinine Est Cr Clr Drug Dosing Est GFR ( Amer) Est GFR (Non-Af Amer) BUN/Creatinine Ratio Glucose POC Glucose Calcium Ferritin 911.9 H Total Bilirubin Direct Bilirubin AST ALT Alkaline Phosphatase Lactate Dehydrogenase 572 H C-Reactive Protein 1.83 H Total Protein Albumin Globulin Albumin/Globulin Ratio 06/23/20 06/23/20 06/23/20 07:15 11:27 16:56 WBC RBC Hgb Hct MCV MCH MCHC RDW Std Deviation RDW Coeff of Danika Plt Count MPV Immature Gran % (Auto) Neut % (Auto) Lymph % (Auto) [place] % (Auto) Eos % (Auto) Baso % (Auto) Neut # (Auto) Lymph # (Auto) [place] # (Auto) Eos # (Auto) Baso # (Auto) Immature Gran # (Auto) ESR D-Dimer Sodium Potassium Chloride Carbon Dioxide Anion Gap BUN Creatinine Est Cr Clr Drug Dosing Est GFR ( Amer) Est GFR (Non-Af Amer) BUN/Creatinine Ratio Glucose POC Glucose 137 H 130 H 107 H Calcium Ferritin Total Bilirubin Direct Bilirubin AST ALT Alkaline Phosphatase Lactate Dehydrogenase C-Reactive Protein Total Protein Albumin Globulin Albumin/Globulin Ratio
[2020-06-23] MEDS: dexAMETHasone 6 MG in SYRINGE 0 ML IV SCH (20:43)
[2020-06-23] MEDS: ENOXAPARIN INJ 40 MG/0.4 ML SYR SQ SCH (20:44)
[2020-06-23] MEDS: REMDESIVIR 100 MG in SODIUM CHLORIDE 0.9% 230 ML IV SCH (20:46)
[2020-06-23] MEDS: SODIUM CHLORIDE 0.9% 10ML FLUSH IV SCH (22:00)
[2020-06-24 06:24] LABS: Basophils # (auto) 0.01 K/uL (0-0.2); Basophils % (auto) 0.1 %; Hematocrit (blood only) 38.6 % (42-52); Hemoglobin 12.7 g/dL (14.0-18.0); Immature Granulocytes # (auto) 0.18 K/uL (0.00-0.02); Immature Granulocytes % (auto) 2.1 %; Lymphocytes # (auto) 0.95 K/uL (1.2-3.4); Lymphocytes % (auto) 10.9 %; Mean Corpuscular Hemoglobin 29.3 pg (25-34); Mean Corpuscular Hgb Conc 32.9 g/dL (32-36); Mean Corpuscular Volume 89.1 fL (80-100); Mean Platelet Volume 9.5 fL (7.4-10.4); Monocytes # (auto) 0.66 K/uL (0.11-0.59); Monocytes % (auto) 7.6 %; Neutrophils % (auto) 79.3 %; Platelet Count 305 K/uL (130-400); RDW Coefficient of Variation 13.7 % (11.5-14.5); Red Blood Count 4.33 M/uL (4.7-6.1)
[2020-06-24] MEDS: LEVOTHYROXINE SODIUM 88 MCG TABLET PO SCH (06:35)
[2020-06-24 06:51] LABS: Albumin Level 2.7 gm/dl (3.4-5.0); Calcium 8.3 mg/dl (8.5-10.1); Creatinine Clr Calc Pharmacy 148.2 ml/min; Est GFR (African American) 119.5; Est GFR (Non-African American) 103.1; Potassium 4.2 mmol/L (3.5-5.1)
[2020-06-24 06:54] LABS: Albumin Globulin Ratio 0.8 (0.9-2); Bilirubin Direct 0.2 mg/dl (0-0.2); Bilirubin,Total 0.9 mg/dl (0.2-1); Globulin 3.6 gm/dl (2.5-4.0); Total Protein 6.3 gm/dl (6.4-8.2)
[2020-06-24] MEDS: guaiFENesin 600 MG TABCR PO SCH ×2 (08:24→21:13)
[2020-06-24] MEDS: GABAPENTIN 100 MG CAP PO SCH ×3 (08:24→21:12)
[2020-06-24] MEDS: PANTOprazole 40 MG TAB PO SCH (08:25)
[2020-06-24] MEDS: ESCITALOPRAM OXALATE 20 MG TAB PO SCH (08:25)
[2020-06-24] MEDS: METOPROLOL TARTRATE 25 MG TAB PO SCH ×2 (08:25→21:12)
[2020-06-24] MEDS: MULTIVITAMIN TAB PO SCH (08:25)
[2020-06-24] MEDS: ZINC SULFATE 220 MG CAPSULE PO SCH (08:25)
[2020-06-24] MEDS: ASCORBIC ACID 500 MG TAB PO SCH (08:25)
[2020-06-24] MEDS: CHOLECALCIFEROL 1,000 UNITS 25 MCG TAB PO SCH (08:25)
[2020-06-24] MEDS: INSULIN ASPART 100 UNITS/ML 3 ML PEN SC SCH (08:26)
[2020-06-24] MEDS: ACETAMINOPHEN 325 MG TAB PO PRN (08:37)
--- NOTE | 2020-06-24 12:17 | Cardiology Progress Note ---
Date of Service June 24, 2020 Assessment & Plan (1) Pneumonia due to 2019 novel coronavirus: Oxygen saturations trending toward improvement, he is on room air, pulse oximetry 89 to 92%. This is day 5 of IV dexamethasone, Remdesivir. (2) Paroxysmal atrial fibrillation: No recurrence. Had on and off again atrial fibrillation, evening of hospital day 1, for about an hour, and an 18 beat run noted otherwise. Continue low-dose metoprolol. No need for systemic anticoagulation from atrial fibrillation standpoint, [id number] score 0. VTE prophylaxis: Subcutaneous Lovenox, 40 mg daily. Admission and Anticipated Discharge Date Admission Date: June 20, 2020 Subjective Spoke to pt by phone. No subjective palpitations. Telemetry SR 50s to 70s without events yesterday, last night, or thus far today. Physical Exam Physical Exam: Temp Pulse Resp BP Pulse Ox 36.7 C 60 20 111/55 L 91 06/24/20 11:14 06/24/20 11:14 06/24/20 11:14 06/24/20 11:14 06/24/20 11:14 Extremities: pt describes no edema in in operative leg. He is happy with the appearance of the incision Results & Data ([facility]) Vital Signs (Past 12 Hours) Vital Signs Temp Pulse Pulse Resp BP Pulse Ox 06/24/20 11:14 36.7 C 60 20 111/55 L 91 06/24/20 08:02 36.8 C 60 18 109/68 94 06/24/20 08:00 60 06/24/20 03:03 36.4 C L 61 20 121/72 93
--- NOTE | 2020-06-24 19:13 | Hospitalist Progress Note ---
Date of Service June 24, 2020 Assessment & Plan (1) COVID-19: per Dr. Gr' notes: Presented with fever, chills, rigors, cough, SOB, hypoxia, confusion. Onset of symptoms 5 days ago. 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 Confirmed SARS-CoV-2 PCR 06/16. Radiographic findings on CTA chest consistent with COVID-19 pneumonia. Lymphocyte count = 1020 > 600. CRP = 6.99. ESR = 28. Procalcitonin = 0.08. Ferritin = 804. D-dimer = 950. COVID-specific therapies indicated in light of hypoxia and need for supplemental O2. 06/24/2020 Weaned off oxygen, currently on room air saturating 90% Clinically, patient seems to be improving daily repeat CXR: no change Liver function and renal function stable D-dimer and ferritin slightly elevated, ESR and CRP improving, LDH elevated, will repeat markers in 2 days continue Remdesevir + Decadron Day # 5 Flutter valve ordered, Prone positioning discussed Lovenox for DVT prophylaxis (2) Pneumonia due to 2019 novel coronavirus: per Dr. Gr' notes: As discussed above. Received levofloxacin in ED. Bacterial pneumonia very unlikely in light of normal procalcitonin; will not order additional antibiotic therapy. (3) Hypoxia: per Dr. Gr' notes: O2 sat 82% on RA at home. Acute hypoxia secondary to COVID-19 pneumonia. wean off O2 accordingly (4) Paroxysmal atrial fibrillation: per Dr. Gr' notes: History of atrial fib / flutter, s/p ablation. PAF last night. Converted to NSR after receiving IV metoprolol. K low yesterday, 4.2 today. Mg 2.1 yesterday. Seen in consultation by Cardiology. Started on metoprolol 12.5 mg BID. Low [id number] score. Back in NSR. No indication for therapeutic dosing of anticoagulants at this time. Reconsider anticoagulation if NSR not maintained. 06/24/2020 Recurrence of A. fib tolerating Metoprolol PO Long-term anticoagulation not made at this point, chads vasc score 0 continue to monitor appreciate Dr. Kinney's recommendations (5) Altered mental status: per Dr. Gr' notes: May have toxic / metabolic encephalopathy secondary to COVID-19. Confused at home. O2 sats were 82% on RA. CT head negative. Confusion probably primarily secondary to hypoxia. Improved in ED. --back to baseline (6) Rupture of left quadriceps tendon: S/P repair 06/15/20. Continue knee brace, analgesics, VTE prophylaxis. pain well controlled Lovenox for DVT prophylaxis-1 more week per orthopedic surgeon (7) Elevated d-dimer: D-dimer = 950. CTA negative for PE. Venous duplex LLE negative for DVT. Increased to 1200, repeat tomorrow (8) Do not resuscitate status: Per discussion with patient. (9) DVT prophylaxis: Increased risk for VTE due to (1) COVID-19 and (2) recent knee surgery. SQ enoxaparin. Ambulate as able. (10) Discharge planning issues: Anticipated discharge to home medically stable. Internal Medicine follow-up with Dr. Willis. Admission and Anticipated Discharge Date Admission Date: June 20, 2020 Subjective Follow-up for Covid pneumonia, acute hypoxic respiratory failure Seen resting in bedside chair, comfortable, not in distress On room air now, saturating 90% States he continues to feel improved Less cough, no hemoptysis No chest pain, headache, dizziness, abdominal pain, diarrhea Left knee pain well controlled, ambulating with no problems No other symptom Review of Systems Review of Systems: All systems reviewed & are unremarkable except as noted in Subjective Physical Exam Physical Exam: General- oriented x 3, not in distress, speaks in sentences with no effort or accessory muscle use Eyes- anicteric Neck- no JVD Lungs-minimal crackles bilateral bases, no wheezing, good air entry bilaterally Heart- normal rate, regular rhythm; no murmurs Abdomen- normal bowel sounds, nondistended, soft, nontender Extremities- no pretibial edema, no calf tenderness Left lower leg with dressing in place Neuro- alert, oriented x 3; no gross focal neurologic deficits Skin- warm & dry Results & Data Results & Data ([facility]) Vital Signs (Past 12 Hours) Vital Signs Temp Pulse Pulse Resp BP Pulse Ox 06/24/20 17:01 36.7 C 64 21 126/59 L 90 06/24/20 16:00 59 L 06/24/20 11:14 36.7 C 60 20 111/55 L 91 06/24/20 08:02 36.8 C 60 18 109/68 94 06/24/20 08:00 60 Laboratory Results Laboratory Results - last 24 hr 06/23/20 06/24/20 06/24/20 20:39 05:29 05:29 WBC 8.70 RBC 4.33 L Hgb 12.7 L Hct 38.6 L MCV 89.1 MCH 29.3 MCHC 32.9 RDW Std Deviation 45.0 RDW Coeff of Danika 13.7 Plt Count 305 MPV 9.5 Immature Gran % (Auto) 2.1 Neut % (Auto) 79.3 Lymph % (Auto) 10.9 [place] % (Auto) 7.6 Eos % (Auto) 0.0 Baso % (Auto) 0.1 Neut # (Auto) 6.90 H Lymph # (Auto) 0.95 L [place] # (Auto) 0.66 H Eos # (Auto) 0.00 Baso # (Auto) 0.01 Immature Gran # (Auto) 0.18 H Sodium 137 Potassium 4.2 Chloride 106 Carbon Dioxide 28 Anion Gap 3.0 BUN 16 Creatinine 0.74 Est Cr Clr Drug Dosing 148.2 Est GFR ( Amer) 119.5 Est GFR (Non-Af Amer) 103.1 BUN/Creatinine Ratio 22.0 H Glucose 122 H POC Glucose 117 H Calcium 8.3 L Total Bilirubin 0.9 Direct Bilirubin 0.2 AST 69 H ALT 114 H Alkaline Phosphatase 73 Total Protein 6.3 L Albumin 2.7 L Globulin 3.6 Albumin/Globulin Ratio 0.8 L 06/24/20 06/24/20 08:00 11:13 WBC RBC Hgb Hct MCV MCH MCHC RDW Std Deviation RDW Coeff of Danika Plt Count MPV Immature Gran % (Auto) Neut % (Auto) Lymph % (Auto) [place] % (Auto) Eos % (Auto) Baso % (Auto) Neut # (Auto) Lymph # (Auto) [place] # (Auto) Eos # (Auto) Baso # (Auto) Immature Gran # (Auto) Sodium Potassium Chloride Carbon Dioxide Anion Gap BUN Creatinine Est Cr Clr Drug Dosing Est GFR ( Amer) Est GFR (Non-Af Amer) BUN/Creatinine Ratio Glucose POC Glucose 116 H 128 H Calcium Total Bilirubin Direct Bilirubin AST ALT Alkaline Phosphatase Total Protein Albumin Globulin Albumin/Globulin Ratio
[2020-06-24] MEDS: dexAMETHasone 6 MG in SYRINGE 0 ML IV SCH (21:11)
[2020-06-24] MEDS: REMDESIVIR 100 MG in SODIUM CHLORIDE 0.9% 230 ML IV SCH (21:11)
[2020-06-24] MEDS: ENOXAPARIN INJ 40 MG/0.4 ML SYR SQ SCH (21:13)
[2020-06-24] MEDS: SODIUM CHLORIDE 0.9% 10ML FLUSH IV SCH (22:20)
[2020-06-25] MEDS: LEVOTHYROXINE SODIUM 88 MCG TABLET PO SCH (05:36)
[2020-06-25 06:47] LABS: Hematocrit (blood only) 37.6 % (42-52); Hemoglobin 12.7 g/dL (14.0-18.0); Mean Corpuscular Hgb Conc 33.8 g/dL (32-36); Mean Corpuscular Volume 88.7 fL (80-100); Mean Platelet Volume 9.5 fL (7.4-10.4); Nucleated RBC # (auto) 0.02 K/uL (0-0); Nucleated RBC % (auto) 0.2 %; Platelet Count 319 K/uL (130-400); RDW Coefficient of Variation 13.7 % (11.5-14.5); RDW Standard Deviation 43.9 fL (36.4-46.3); Red Blood Count 4.24 M/uL (4.7-6.1)
[2020-06-25 07:09] LABS: D Dimer 5510 ug/L FEU (0-500)
[2020-06-25 07:21] LABS: Albumin Level 2.7 gm/dl (3.4-5.0); BUN Creatinine Ratio 21.6 (10-20); Bilirubin Direct 0.2 mg/dl (0-0.2); C Reactive Protein 1.13 mg/dl (0-0.29); Calcium 8.5 mg/dl (8.5-10.1); Creatinine Clr Calc Pharmacy 144.8 ml/min; Est GFR (African American) 118.9; Est GFR (Non-African American) 102.5
[2020-06-25 07:24] LABS: Albumin Globulin Ratio 0.7 (0.9-2); Bilirubin,Total 0.7 mg/dl (0.2-1); Globulin 3.6 gm/dl (2.5-4.0); Total Protein 6.3 gm/dl (6.4-8.2)
[2020-06-25 07:27] LABS: Basophils # (auto) 0.03 K/uL (0-0.2); Basophils % (auto) 0.3 %; Eosinophils # (auto) 0.02 K/uL (0-0.5); Eosinophils % (auto) 0.2 %; Immature Granulocytes # (auto) 0.48 K/uL (0.00-0.02); Immature Granulocytes % (auto) 5.6 %; Lymphocytes # (auto) 1.04 K/uL (1.2-3.4); Lymphocytes % (auto) 12.1 %; Monocytes # (auto) 0.66 K/uL (0.11-0.59); Monocytes % (auto) 7.7 %; Neutrophils # (auto) 6.37 K/uL (1.4-6.5); Neutrophils % (auto) 74.1 %
[2020-06-25] MEDS: ACETAMINOPHEN 325 MG TAB PO PRN (08:20)
[2020-06-25] MEDS: guaiFENesin 600 MG TABCR PO SCH (08:20)
[2020-06-25] MEDS: GABAPENTIN 100 MG CAP PO SCH ×2 (08:20→13:59)
[2020-06-25] MEDS: METOPROLOL TARTRATE 25 MG TAB PO SCH (08:21)
[2020-06-25] MEDS: ZINC SULFATE 220 MG CAPSULE PO SCH (08:21)
[2020-06-25] MEDS: PANTOprazole 40 MG TAB PO SCH (08:21)
[2020-06-25] MEDS: ASCORBIC ACID 500 MG TAB PO SCH (08:22)
[2020-06-25] MEDS: ESCITALOPRAM OXALATE 20 MG TAB PO SCH (08:22)
[2020-06-25] MEDS: CHOLECALCIFEROL 1,000 UNITS 25 MCG TAB PO SCH (08:22)
[2020-06-25] MEDS: MULTIVITAMIN TAB PO SCH (08:22)
--- NOTE | 2020-06-25 11:27 | XRay Report ---
XR chest 1V portable HISTORY: ff up covid pneumonia COMPARISON: Chest 06/22/2020. FINDINGS: No pneumothorax. No pleural effusions. The heart remains mildly enlarged. Faint multifocal bilateral airspace opacities are again noted but have improved in the interval. No evidence for pulmo nary edema. IMPRESSION: Improved aeration within the multifocal bilateral airspace opacities. ACT 112: Negative or not required by law. Electronically signed by: Kota Madsen M.D. 06/25/2020 11:26 AM
--- NOTE | 2020-06-25 12:52 | Cardiology Progress Note ---
Date of Service June 25, 2020 Assessment & Plan (1) Pneumonia due to 2019 novel coronavirus: Oxygen saturations trending toward improvement, he is on room air, pulse oximetry 89 to 92%. He has completed a course of dexamethasone and remdesivir. (2) Paroxysmal atrial fibrillation: No recurrence. Had on and off again atrial fibrillation, evening of hospital day 1, for about an hour, and an 18 beat run noted otherwise. Continue low-dose metoprolol. No need for systemic anticoagulation from atrial fibrillation standpoint, [id number] score 0. VTE prophylaxis: Subcutaneous Lovenox, 40 mg daily , agent of choice to preferred by his orthopedist in [place] until 06/29/2020, will discuss possibly transitioning him to a month of Eliquis 2.5 mg twice daily for VTE prophylaxis given prothrombotic tendency of COVID-19 and recent orthopedic surgery. Patient feels ready for discharge. His chest x-ray today reveals subtle improvement in the airspace opacities as compared to 06/22/2020. Supplemental oxygen planned. Admission and Anticipated Discharge Date Admission Date: June 20, 2020 Subjective Spoke to patient by phone, spoke to his nurse by phone as well, reviewed telemetry, chart. Mr Alvarez describes subjective improvement. Oxygen saturation is 91% on room air this morning. With ambulation, hypoxia noted, and supplemental oxygen with exertion is tentatively planned for time of discharge. No recurrence of atrial fibrillation yesterday, last night, or today thus far. No subjective palpitations. He is in good spirits. Physical Exam Physical Exam: Temp Pulse Resp BP Pulse Ox 36.5 C 77 18 100/59 L 91 06/25/20 11:30 06/25/20 11:30 06/25/20 11:30 06/25/20 11:30 06/25/20 11:30 Results & Data ([facility]) Vital Signs (Past 12 Hours) Vital Signs Temp Pulse Pulse Pulse Pulse Pulse Pulse 06/25/20 11:30 36.5 C 77 06/25/20 11:29 75 75 74 71 06/25/20 10:46 58 L 06/25/20 08:15 36.9 C 66 06/25/20 03:44 37.0 C 60 Pulse Resp Resp Resp Resp Resp Resp 06/25/20 11:30 18 06/25/20 11:29 65 20 20 20 20 20 06/25/20 10:46 06/25/20 08:15 20 06/25/20 03:44 21 BP Pulse Ox Pulse Ox Pulse Ox Pulse Ox Pulse Ox Pulse Ox 06/25/20 11:30 100/59 L 91 06/25/20 11:29 87 L 89 L 85 L 91 91 06/25/20 10:46 06/25/20 08:15 130/71 90 06/25/20 03:44 137/56 L 90
--- NOTE | 2020-06-25 19:02 | Hospitalist Progress Note ---
Date of Service June 25, 2020 Assessment & Plan (1) COVID-19: per Dr. Gr' notes: Presented with fever, chills, rigors, cough, SOB, hypoxia, confusion. Onset of symptoms 5 days ago. 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 Confirmed SARS-CoV-2 PCR 06/16. Radiographic findings on CTA chest consistent with COVID-19 pneumonia. Lymphocyte count = 1020 > 600. CRP = 6.99. ESR = 28. Procalcitonin = 0.08. Ferritin = 804. D-dimer = 950. COVID-specific therapies indicated in light of hypoxia and need for supplemental O2. 06/25/2020 Weaned off oxygen, currently on room air saturating 90% Has shown significant improvement clinically since admission repeat CXR: no change Liver function and renal function stable D-dimer elevated from 9546-2257: No change with respiratory status No increased leg pain or edema Discussed with patient, suggested lower extremity Doppler studies, first observation for now, no further imaging studies Patient has received 5 days of remdesivir Patient has received 6 days of Decadron IV Discharge plan: Decadron 6 mg p.o. x4 more days Lovenox 40 mg subcutaneous daily x4 days, then Eliquis 2.5 mg twice daily x1 month Oxygen supplement 3 L with ambulation Follow-up with PCP next week Repeat chest x-ray in 4 weeks (2) Pneumonia due to 2019 novel coronavirus: per Dr. Gr' notes: As discussed above. Received levofloxacin in ED. Bacterial pneumonia very unlikely in light of normal procalcitonin; will not order additional antibiotic therapy. (3) Hypoxia: per Dr. Gr' notes: O2 sat 82% on RA at home. Acute hypoxia secondary to COVID-19 pneumonia. wean off O2 accordingly (4) Paroxysmal atrial fibrillation: per Dr. Gr' notes: History of atrial fib / flutter, s/p ablation. PAF last night. Converted to NSR after receiving IV metoprolol. K low yesterday, 4.2 today. Mg 2.1 yesterday. Seen in consultation by Cardiology. Started on metoprolol 12.5 mg BID. Low [id number] score. Back in NSR. No indication for therapeutic dosing of anticoagulants at this time. Reconsider anticoagulation if NSR not maintained. 06/25/2020 Recurrence of A. fib tolerating Metoprolol PO Long-term anticoagulation not made at this point, chads vasc score 0 --Continue metoprolol 25 mg p.o. twice daily Follow-up with Dr. Kinney in 4 weeks (5) Altered mental status: per Dr. Gr' notes: May have toxic / metabolic encephalopathy secondary to COVID-19. Confused at home. O2 sats were 82% on RA. CT head negative. Confusion probably primarily secondary to hypoxia. Improved in ED. --back to baseline (6) Rupture of left quadriceps tendon: S/P repair 06/15/20. Continue knee brace, analgesics, VTE prophylaxis. pain well controlled Lovenox for DVT prophylaxis-1 more week per orthopedic surgeon Follow-up with orthopedic surgeon as scheduled (7) Elevated d-dimer: D-dimer = 950. CTA negative for PE. Venous duplex LLE negative for DVT. Increased to 5k Management per #1 (8) Do not resuscitate status: Per discussion with patient. (9) DVT prophylaxis: Increased risk for VTE due to (1) COVID-19 and (2) recent knee surgery. SQ enoxaparin. Ambulate as able. (10) Discharge planning issues: Discharge to home Internal Medicine follow-up with Dr. Willis in 1 week Follow-up with cardiology clinic Follow-up with orthopedic surgery Admission and Anticipated Discharge Date Admission Date: June 20, 2020 Subjective Follow-up for acute hypoxic respiratory failure, Covid pneumonia Sitting up in bedside chair, comfortable, on room air States he feels better overall No shortness of breath while at rest Cough improving, no hemoptysis, no chest pain Leg pain well controlled Denies other symptoms States that he is ready and would like to be discharged today Review of Systems Review of Systems: All systems reviewed & are unremarkable except as noted in Subjective Physical Exam Physical Exam: General- oriented x 3, not in distress, speaks in sentences with no effort or accessory muscle use Eyes- anicteric Neck- no JVD Lungs-crackles at the left base, clear on the right No wheezing Good air entry bilaterally Heart- normal rate, regular rhythm; no murmurs Abdomen- normal bowel sounds, nondistended, soft, nontender Extremities-no pedal edema Right lower extremity: No edema Left lower extremity: Heavy dressing in place with immobilizer Neuro- alert, oriented x 3; no gross focal neurologic deficits Skin- warm & dry Results & Data Results & Data ([facility]) Vital Signs (Past 12 Hours) Vital Signs Temp Pulse Pulse Pulse Pulse Pulse Pulse 06/25/20 15:55 36.5 C 77 06/25/20 15:32 62 06/25/20 11:30 36.5 C 77 06/25/20 11:29 75 75 74 71 06/25/20 10:46 58 L 06/25/20 08:15 36.9 C 66 Pulse Pulse Resp Resp Resp Resp Resp 06/25/20 15:55 72 18 06/25/20 15:32 06/25/20 11:30 18 06/25/20 11:29 65 20 20 20 20 06/25/20 10:46 06/25/20 08:15 20 Resp BP Pulse Ox Pulse Ox Pulse Ox Pulse Ox Pulse Ox 06/25/20 15:55 100/59 L 91 06/25/20 15:32 06/25/20 11:30 100/59 L 91 06/25/20 11:29 20 87 L 89 L 85 L 91 06/25/20 10:46 06/25/20 08:15 130/71 90 Pulse Ox 06/25/20 15:55 06/25/20 15:32 06/25/20 11:30 06/25/20 11:29 91 06/25/20 10:46 06/25/20 08:15 Laboratory Results Laboratory Results - last 24 hr 06/25/20 06/25/20 06/25/20 05:33 05:33 05:34 WBC 8.60 RBC 4.24 L Hgb 12.7 L Hct 37.6 L MCV 88.7 MCH 30.0 MCHC 33.8 RDW Std Deviation 43.9 RDW Coeff of Danika 13.7 Plt Count 319 MPV 9.5 Immature Gran % (Auto) 5.6 Neut % (Auto) 74.1 Lymph % (Auto) 12.1 [place] % (Auto) 7.7 Eos % (Auto) 0.2 Baso % (Auto) 0.3 Neut # (Auto) 6.37 Lymph # (Auto) 1.04 L [place] # (Auto) 0.66 H Eos # (Auto) 0.02 Baso # (Auto) 0.03 Immature Gran # (Auto) 0.48 H Absolute Nucleated RBC 0.02 H Nucleated RBC % (auto) 0.2 ESR 16 H D-Dimer Sodium 139 Potassium 4.0 Chloride 108 H Carbon Dioxide 26 Anion Gap 5.0 BUN 16 Creatinine 0.75 Est Cr Clr Drug Dosing 144.8 Est GFR ( Amer) 118.9 Est GFR (Non-Af Amer) 102.5 BUN/Creatinine Ratio 21.6 H Glucose 124 H Calcium 8.5 Total Bilirubin 0.7 Direct Bilirubin 0.2 AST 49 H ALT 95 H Alkaline Phosphatase 70 Lactate Dehydrogenase C-Reactive Protein 1.13 H Total Protein 6.3 L Albumin 2.7 L Globulin 3.6 Albumin/Globulin Ratio 0.7 L 06/25/20 06/25/20 05:34 05:34 WBC RBC Hgb Hct MCV MCH MCHC RDW Std Deviation RDW Coeff of Danika Plt Count MPV Immature Gran % (Auto) Neut % (Auto) Lymph % (Auto) [place] % (Auto) Eos % (Auto) Baso % (Auto) Neut # (Auto) Lymph # (Auto) [place] # (Auto) Eos # (Auto) Baso # (Auto) Immature Gran # (Auto) Absolute Nucleated RBC Nucleated RBC % (auto) ESR D-Dimer 5510 H* Sodium Potassium Chloride Carbon Dioxide Anion Gap BUN Creatinine Est Cr Clr Drug Dosing Est GFR ( Amer) Est GFR (Non-Af Amer) BUN/Creatinine Ratio Glucose Calcium Total Bilirubin Direct Bilirubin AST ALT Alkaline Phosphatase Lactate Dehydrogenase 409 H C-Reactive Protein Total Protein Albumin Globulin Albumin/Globulin Ratio
--- NOTE | 2020-06-26 19:02 | Discharge Summary ---
Date of Service June 26, 2020 Admission HPI Per Admitting Provider 55 YO male followed by Dr. Willis for Internal Medicine and Dr. Kinney for Cardiology. History of atrial fibrillation / flutter and other problems as noted below. 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 Has been following protocol and using PPE as directed. Participating in [facility]'s study following SARS-CoV-2 testing longitudinally in healthcare workers. Testing had been negative. Scheduled for elective surgery for left knee injury. Preop SARS-CoV-2 PCR was negative on 06/10/20. Previously scheduled testing for [facility] study was done on 06/14/20. Left knee surgery was performed in [place] on 06/15/20. Developed fever, chills, rigors on return trip from [place]. He was informed that testing for [facility] study done on 06/14/20 showed positive results (need to verify details- ? PCR + antigen + antibodies). SARS-CoV-2 PCR positivity confirmed 06/16/20. No need for hospitalization at that time. Continued to have fever and malaise; also experienced cough and SOB. Spouse noted that he was somewhat confused this morning. EMS summoned. O2 sat was 82% on RA when they arrived. Brought to ED for further evaluation and management. Admission Exam Per Admitting Provider VS- as noted Constitutional- well nourished; appears to be acutely ill Eyes- PERRL, anicteric sclerae, conjunctivae normal ENMT- external ear and nose normal; oropharynx clear; dentition good Neck- trachea midline; no thyromegaly Respiratory- no respiratory distress; lungs clear Cardiovascular- RRR, no murmur/gallop/rub; no JVD; no pretibial edema; normal capillary refill Chest- no abnormalities Abdomen- normal bowel sounds, soft, nontender, nondistended; no palpable masses or hepatosplenomegaly Musculoskeletal- no cyanosis; left knee: healing incision; ecchymoses; no erythema or drainage Skin- warm & dry; normal color; no rashes Neurologic- no facial palsy; no dysarthria or aphasia; motor strength extremities grossly intact Psychiatric- alert, oriented x 3; normal affect Lymphatic- no cervical adenopathy Principal Diagnosis COVID-19 PNEUMONIA, WITH ACUTE HYPOXIC RESPIRATORY FAILURE Discharge Exam General- oriented x 3, not in distress, speaks in sentences with no effort or accessory muscle use Eyes- anicteric Neck- no JVD Lungs-crackles at the left base, clear on the right No wheezing Good air entry bilaterally Heart- normal rate, regular rhythm; no murmurs Abdomen- normal bowel sounds, nondistended, soft, nontender Extremities-no pedal edema Right lower extremity: No edema Left lower extremity: Heavy dressing in place with immobilizer Neuro- alert, oriented x 3; no gross focal neurologic deficits Skin- warm & dry Discharge Data Allergies Allergy/AdvReac Type Severity Reaction Status Date / Time almond Allergy Anaphylaxis Verified 06/20/20 16:56 apple Allergy Anaphylaxis Verified 06/20/20 16:56 bee venom protein (honey bee) Allergy Anaphylaxis Verified 06/20/20 16:57 carrot Allergy Anaphylaxis Verified 06/20/20 16:57 Consultations 06/20/20 15:22 ED Decision to Admit Stat 06/20/20 19:46 Consult Infectious Diseases Routine 06/21/20 08:00 Consult Cardiology Routine Ordered Studies 06/20/20 14:34 CT angio chest PE protocol Stat Thyroid: Imaged portions of the thyroid gland are normal in size and attenuation. Thoracic aorta: The thoracic aorta is normal in caliber and demonstrates standard 3-vessel arch anatomy. No dissection is seen. Pulmonary vasculature: The pulmonary trunk is normal in caliber. There are no filling defects identified in main, lobar, or segmental pulmonary branches to suggest pulmonary embolus. Heart: The heart is enlarged and and without pericardial effusion. Lungs and pleural spaces: There is multifocal groundglass consolidation seen throughout both lungs. There is trace right pleural effusion. The trachea and central airways are clear. Mediastinum: There is no mediastinal lymphadenopathy. Teena: Clear. Axillae: There is no axillary lymphadenopathy. Upper abdomen: The liver is enlarged and steatotic. A 1.3 cm cyst is noted in the right hepatic lobe. There is a small hiatal hernia. 1.9 cm cyst is seen in the upper pole of the right kidney. Skeletal structures: No lytic or blastic bony lesions are seen. IMPRESSION: 1. There is no evidence of pulmonary embolus in the main, lobar, or segmental pulmonary arteries. 2. Multifocal groundglass consolidation is seen throughout both lungs. This is typical for an infectious/inflammatory pneumonitis. 3. Trace right pleural effusion. 4. Cardiomegaly. CT head/brain wo con Stat FINDINGS: No acute intracranial hemorrhage, midline shift, intracranial mass, hydrocephalus, territorial ischemia or abnormal extra-axial collection. The calvarium is intact. Small right mastoid effusion. Left mastoid air cells and paranasal sinuses are generally clear. Soft tissues and orbits are unremarkable. Pulmonary opacities are noted on the garnett machine operator helper localizer images. IMPRESSION: No acute intracranial abnormality. 06/21/20 15:29 US venous doppler LE Urgent FINDINGS: Normal flow, compressibility, phasicity and augmentation of the left lower extremity deep venous structures. IMPRESSION: No sonographic evidence of deep venous thrombosis. Hospital Course (1) COVID-19: per Dr. Gr' notes: Presented with fever, chills, rigors, cough, SOB, hypoxia, confusion. Onset of symptoms 5 days ago. Results from [facility] study 06/14: [facility], oral, and saliva PCR's positive, qualitative antibodies negative. Confirmed SARS-CoV-2 PCR 06/16. Radiographic findings on CTA chest consistent with COVID-19 pneumonia. Lymphocyte count = 1020 > 600. CRP = 6.99. ESR = 28. Procalcitonin = 0.08. Ferritin = 804. D-dimer = 950. COVID-specific therapies indicated in light of hypoxia and need for supplemental O2. tolerated medical therapies well Weaned off oxygen, currently on room air saturating 90% Has shown significant improvement clinically since admission repeat CXR: no change Liver function and renal function stable D-dimer elevated from 1000-->5000: No change with respiratory status No increased leg pain or edema Discussed with patient, suggested lower extremity Doppler studies, prefers observation for now, no further imaging studies Patient has received 5 days of remdesivir Patient has received 6 days of Decadron IV Discharge plan: Decadron 6 mg p.o. x4 more days Lovenox 40 mg subcutaneous daily x4 days, then Eliquis 2.5 mg twice daily x1 month Oxygen supplement 3 L with ambulation Follow-up with PCP next week Repeat chest x-ray in 4 weeks (2) Pneumonia due to 2019 novel coronavirus: per Dr. Gr' notes: As discussed above. Received levofloxacin in ED. Bacterial pneumonia very unlikely in light of normal procalcitonin; will not order additional antibiotic therapy. (3) Hypoxia: per Dr. Gr' notes: O2 sat 82% on RA at home. Acute hypoxia secondary to COVID-19 pneumonia. --wean off O2 accordingly (4) Paroxysmal atrial fibrillation: per Dr. Gr' notes: History of atrial fib / flutter, s/p ablation. PAF last night. Converted to NSR after receiving IV metoprolol. K low yesterday, 4.2 today. Mg 2.1 yesterday. Seen in consultation by Cardiology. Started on metoprolol 12.5 mg BID. Low [id number] score. Back in NSR. No indication for therapeutic dosing of anticoagulants at this time. Reconsider anticoagulation if NSR not maintained. tolerating Metoprolol PO --Continue metoprolol 12.5 mg p.o. twice daily Given Eliquis 2.5 mg p.o. twice daily x1 month for DVT prophylaxis Follow-up with Dr. Kinney in 4 weeks (5) Altered mental status: per Dr. Gr' notes: May have toxic / metabolic encephalopathy secondary to COVID-19. Confused at home. O2 sats were 82% on RA. CT head negative. Confusion probably primarily secondary to hypoxia. Improved in ED. --back to baseline (6) Rupture of left quadriceps tendon: S/P repair 06/15/20. Continue knee brace, analgesics, VTE prophylaxis. pain well controlled Lovenox for DVT prophylaxis-1 more week per orthopedic surgeon Discussed with patient, in light of recent knee surgery and Covid 19 infection, suggested to extend DVT prophylaxis with Eliquis 2.5 mg p.o. twice daily x1 month Follow-up with orthopedic surgeon as scheduled (7) Elevated d-dimer: D-dimer = 950. CTA negative for PE. Venous duplex LLE negative for DVT. Increased to 5k No change with respiratory status, No increased leg pain or edema Discussed with patient, suggested lower extremity Doppler studies, prefers observation for now, and no further imaging studies unless with changes in respiratory status or leg pain/swelling (8) Do not resuscitate status: Per discussion with patient. (9) Discharge planning issues: Discharge to home Internal Medicine follow-up with Dr. Willis in 1 week Follow-up with safety sealer Dr. Kinney Follow-up with orthopedic surgeon as scheduled Total Time Total Time Spent Total Time Spent (In Minutes): > 30 minutes Discharge Plan Discharge Items Patient Disposition: Home - Self-Care Reason For Visit: COVID 19 Discharge Diagnosis: COVID 19 PNEUMONIA, ACUTE RESPIRATORY FAILURE Activity: As commented below Activity Comment: RESUME ACTIVITY GRADUALLY TOLERATED Lifting: Wait until after follow-up appointment Exercise/Sports: Wait until after follow-up appointment Driving/Machine Use: NO DRIVING UNTIL RE-EVALUATED BY PRIMARY CARE PHYSICIAN AND SURGEON Non-emergency contact: Primary Care Provider and Surgeon Call non-emergency contact if: you have any medication questions, your symptoms worsen, your pain is not controlled, your pain is worsening, your pain is unusual for you, your pain is concerning for you, you have a fever, your wound has increased redness, your wound has increased drainage and your wound pain has increased Follow-up/Referrals: Oscar Willis, DO [Primary Care Provider] - Diet: Heart Healthy Addtl Attending Provider Instructions: Please review your new medication list and follow instructions carefully. Your new medications include: Decadron Lovenox injection -from June 26-2019. Eliquis-starting June 30, 2020, x1 month Metoprolol tartrate Gabapentin Please follow-up with your primary care physician within 1 week. [facility] will be calling you soon for the appointment soon. Follow-up with Dr. Kinney in 4 to 6 weeks. Follow-up with your Orthopedic surgeon as scheduled. Home Isolation COVID-19 Instructions The following information about Home Isolation is from the CDC Website: https://www.cdc.gov/coronavirus/2019-ncov/hcp/pfphdymg-slhfxec-taxchi.html Stay home except to get medical care People who are mildly ill with COVID-19 are able to isolate at home during their illness. You should restrict activities outside your home, except for getting medical care. Do not go to work, school, or public areas. Avoid using public transportation, ride-sharing, or taxis. Separate yourself from other people and animals in your home People: As much as possible, you should stay in a specific room and away from other people in your home. Also, you should use a separate bathroom, if available. Animals: You should restrict contact with pets and other animals while you are sick with COVID-19, just like you would around other people. Although there have not been reports of pets or other animals becoming sick with COVID-19, it is still recommended that people sick with COVID-19 limit contact with animals until more information is known about the virus. When possible, have another member of your household care for your animals while you are sick. If you are sick with COVID-19, avoid contact with your pet, including petting, snuggling, being kissed or licked, and sharing food. If you must care for your pet or be around animals while you are sick, wash your hands before and after you interact with pets and wear a face mask. Call ahead before visiting your doctor If you have a medical appointment, call the healthcare provider and tell them that you have or may have COVID-19. This will help the healthcare providers office take steps to keep other people from getting infected or exposed. Wear a face mask You should wear a face mask when you are around other people (e.g., sharing a room or vehicle) or pets and before you enter a healthcare providers office. If you are not able to wear a face mask (for example, because it causes trouble breathing), then people who live with you should not stay in the same room with you, or they should wear a face mask if they enter your room. Cover your coughs and sneezes Cover your mouth and nose with a tissue when you cough or sneeze. Throw used tissues in a lined trash can. Immediately wash your hands with soap and water for at least 20 seconds or, if soap and water are not available, clean your hands with an alcohol-based hand student success counselor that contains at least 60% alcohol. Clean your hands often Wash your hands often with soap and water for at least 20 seconds, especially after blowing your nose, coughing, or sneezing; going to the bathroom; and before eating or preparing food. If soap and water are not readily available, use an alcohol-based hand student success counselor with at least 60% alcohol, covering all surfaces of your hands and rubbing them together until they feel dry. Soap and water are the best option if hands are visibly dirty. Avoid touching your eyes, nose, and mouth with unwashed hands. Avoid sharing personal household items You should not share dishes, drinking glasses, cups, eating utensils, towels, or bedding with other people or pets in your home. After using these items, they should be washed thoroughly with soap and water. Clean all high-touch surfaces everyday High touch surfaces include counters, tabletops, doorknobs, bathroom fixtures, toilets, phones, keyboards, tablets, and bedside tables. Also, clean any surfaces that may have blood, stool, or body fluids on them. Use a household cleaning spray or wipe, according to the label instructions. Labels contain instructions for safe and effective use of the cleaning product including precautions you should take when applying the product, such as wearing gloves and making sure you have good ventilation during use of the product. Monitor your symptoms Seek prompt medical attention if your illness is worsening (e.g., difficulty breathing).Beforeseeking care, call your healthcare provider and tell them that you have, or are being evaluated for, COVID-19. Put on a face mask before you enter the facility. These steps will help the healthcare providers office to keep other people in the office or waiting room from getting infected or exposed. Ask your healthcare provider to call the local or [facility] artment. Persons who are placed under active monitoring or facilitated self- monitoring should follow instructions provided by their local health department or occupational health professionals, as appropriate. When working with your local health department check their available hours. If you have a medical emergency and need to call 911, notify the dispatch personnel that you have, or are being evaluated for COVID-19. If possible, put on a face mask before emergency medical services arrive. Discontinuing home isolation Patients with confirmed COVID-19 should remain under home isolation precautions until the risk of secondary transmission to others is thought to be low. The decision to discontinue home isolation precautions should be made on a [id number] basis, in consultation with healthcare providers and state and local health departments. Pending Studies at Discharge: No Stand-Alone Forms: [facility], Smoking Cessation Medications and DC Order Prescriptions: New (DME) Oxygen Home Liters Per Minute 1 ea .Route UD Qty: 1 RF: 0 gabapentin 100 mg Capsule 100 mg PO TID Qty: 42 RF: 2 enoxaparin 40 mg/0.4 mL Syringe 40 mg subcut HS 4 Days Qty: 1.6 RF: 0 metoprolol tartrate 25 mg Tablet 12.5 mg PO BID Qty: 30 RF: 2 dexamethasone [Decadron] 6 mg tablet 6 mg PO DAILY Qty: 4 RF: 0 Eliquis 2.5 mg tablet 2.5 mg PO BID Qty: 60 RF: 0 Continued escitalopram oxalate [Lexapro] 20 mg tablet 20 mg PO DAILY RF: 0 multivitamin tablet 1 tab PO DAILY RF: 0 pantoprazole 40 mg tablet,delayed release (DR/EC) 40 mg PO DAILY PRN (Reason: Acid Reflux) RF: 0 oxycodone-acetaminophen [Percocet] 5-325 mg tablet 1 - 2 tab PO Q6H PRN (Reason: pain) Qty: 24 RF: 0 levothyroxine 88 mcg tablet 88 mcg PO DAILY RF: 0 epinephrine [EpiPen 2-Alvarez] 0.3 mg/0.3 mL Auto-Injector 0.3 mg IM Q4H PRN (Reason: Allergic Reaction) RF: 0 Discontinued aspirin [Adult Low Dose Aspirin] 81 mg tablet,delayed release (DR/EC) 81 mg PO BID Qty: 60 RF: 0 Discharge Orders: Discharge Order (Routine); Ordered 06/25/20 Ordered By: Chris Parr Admission Data Admit Date/Time: 06/20/20 16:58 Attending Provider: Chris Parr Admit Provider: Abraham Gr Primary Care Provider: Oscar Willis Other Providers: Abraham Gr ; Richard Marie ; Adri Stevens ; Brian Nair I. ; Ozzy Bryson II ; Opal Arboleda ; Heriberto Prescott ; Camron Ca ; Nikunj Kinney ; Ismael Bustamante ; William Curtis ; Jairo Cavanaugh ; Heriberto Crowell ; Elli Kerns ; Cynthia Collier ; Juan Jose Champion Other Interventions: Discharge Summary Assessment (RN) Last Done: 06/25/20 15:55
== END 2020-06-25 16:54 | disposition home or self-care (01) | DRG 177 ==
LOC: ED 14:17 → 2S 16:58 → SUATTDRO 16:58 → 2S 18:07

== ENCOUNTER 2023-04-12 06:13 | Observation (INO) ==
--- NOTE | 2023-03-25 11:32 | PAT Medication Instructions ---
Medication Instructions Date of Service March 25, 2023 Home Medications Medication Instructions Recorded CPAP Machine See Rx Instructions .Route 06/02/21 .COMPLEX #1 ea pitolisant 4.45 mg tablet See Rx Instructions PO DAILY #90 02/06/23 tabs multivitamin 1 tab PO DAILY pantoprazole 40 mg tablet,delayed release 40 mg PO DAILY PRN Acid Reflux levothyroxine 88 mcg tablet 88 mcg PO QAM pitolisant 4.45 mg tablet See Rx Instructions PO DAILY Biofunction Supplement 1 tab PO QAM baclofen 10 mg tablet 10 mg PO BID PRN muscle spasms gabapentin 300 mg capsule 300 mg PO BID PRN Pain magnesium 1 tab PO DAILY meloxicam 15 mg tablet 15 mg PO QAM pyridoxine (vitamin B6) 25 mg tablet (Vitamin B-6) 30 mg PO QAM ASK your surgeon for instructions meloxicam 15 mg tablet 15 mg PO QAM STOP taking 2 weeks before surgery (or as soon as possible if surgery is within 2 weeks) Biofunction Supplement 1 tab PO QAM DO NOT take the morning of surgery multivitamin 1 tab PO DAILY pitolisant 4.45 mg tablet See Rx Instructions PO DAILY baclofen 10 mg tablet 10 mg PO BID PRN muscle spasms magnesium 1 tab PO DAILY pyridoxine (vitamin B6) 25 mg tablet (Vitamin B-6) 30 mg PO QAM Take morning of surgery With a small sip of water, OTHERWISE NOTHING TO EAT OR DRINK AFTER MIDNIGHT: pantoprazole 40 mg tablet,delayed release 40 mg PO DAILY PRN Acid Reflux (if needed) levothyroxine 88 mcg tablet 88 mcg PO QAM gabapentin 300 mg capsule 300 mg PO BID PRN Pain (use if needed, unless told otherwise by surgeon) Take evening before surgery pantoprazole 40 mg tablet,delayed release 40 mg PO DAILY PRN Acid Reflux (if needed) baclofen 10 mg tablet 10 mg PO BID PRN muscle spasms (if needed) gabapentin 300 mg capsule 300 mg PO BID PRN Pain (if needed) Other Notes If you have any questions please call us at [phone] or [phone] or [phone] or [phone]
--- NOTE | 2023-03-29 09:27 | Anesthesiology Consultation ---
Date of Service March 29, 2023 Assessment & Plan (1) Encounter for pre-operative examination: - Patient contacted [facility] cardiology at PAT visit requesting 2021 echocardiogram report be faxed. This was not received 04/01/23 and per [facility] cardiology office, Ronnie, and patient review with PCP last echocardiogram was in 2019. He is agreeable to update echocardiogram as advised by Dr. Mayes and plans to complete this at [facility]. Estrella made aware and will coordinate echocardiogram with patient and contact for central scheduling. Echocardiogram completed with similar findings to 2019 study. - PCP pre-op evaluation 04/01/23 [facility]: "...preoperative evaluation at the request of Dr. Chambers Procedure and Date of surgery: lumbar decompression fusion surgery 04/12/23...Preoperative labs-03/29/2023-normal CBC, BMP, coags, urinalysis--reviewed on his phone [facility] portal. Chest x-ray no acute process. EKG-NSR at 64 bp.m., incomplete right bundle branch block...low risk For perioperative cardiac event and may undergo the proposed surgery under noninvasive cardiac monitoring. Continue using CPAP at night, monitor for postoperative hypoxia..." - Case discussed in detail with Dr. Mayes who advised patient is acceptable to proceed with surgery with planned upcoming medical clearance, he advised nothing further is needed from cardiology. Dr. Mayes advised patient can continue Biofunction supplement to his comfort of d/c medication prior to surgery. He verbalized understanding and states will plan to stop supplement. - anesthesia requests: Dr. Andujar and Mya Schmitt. Beth with OR made aware. - pulmonology 11/13/22 [place]: "...Severe sleep apnea...counseled regarding potential worsening of sleep disordered breathing associated with alcohol, sedative hypnotics, narcotics, or weight gain...hypersomnolence associated with treated sleep apnea..." - cardiology office visit 03/02/22 [facility]: "...history of atrial arrhythmias with previous pulmonary vein isolation ablation for atrial fibrillation, caval tricuspid isthmus ablation for atrial flutter...notes some degree of shortness of breath with exertion, and notes lower extremity edema...mild pitting edema is noted that progresses...day goes on...left greater than right...wearing compression stockings...no subjective palpitations since he had an episode of atrial fibrillation while acutely hospitalized for COVID in June 2020...chest pain with equivocal stress testing, prompting invasive coronary angiography, January 2019 with angiographically normal coronary arteries...continue current treatment, off of beta-marilu and anticoagulation therapy, with no recent recurrence of atrial arrhythmias...proceed with a chemistry panel prior to consideration of furosemide for treatment of lower extremity edema...due to shortness of breath and lower extremity edema, proceed with updating echocardiogram...going to be performed at [facility]...Return in 1 year..." Chart Review Chart Review: Acceptable Risk for Surgery and Patient seen in Pre Admission Testing Teaching & Discussion Pre-Anesthesia Teaching/Discussion Notes: Instructed NPO after midnight before surgery, except medications with 15 cc of water. Medication instructions provided according to the PAT guidelines. History Surgery Operation Date: 04/12/23 10:35 Proposed Procedures p L2-L4 Decompression with Coflex - Gregg Chambers, Height/Weight Height: 6 ft 1 in Weight: 121.3 kg Allergies Allergy/AdvReac Type Severity Reaction Status Date / Time almond Allergy Anaphylaxis Verified 03/22/23 10:47 apple Allergy Anaphylaxis Verified 03/22/23 10:47 bee venom protein (honey bee) Allergy Anaphylaxis Verified 03/22/23 10:47 carrot Allergy Anaphylaxis Verified 03/22/23 10:47 Medications Home Medications Medication Instructions Recorded Confirmed Last Taken multivitamin 1 tab PO DAILY 07/21/19 03/22/23 01/19/20 pantoprazole 40 mg tablet,delayed 40 mg PO DAILY PRN Acid Reflux 01/16/20 03/22/23 01/19/20 release epinephrine 0.3 mg/0.3 mL 0.3 mg IM Q4H PRN Allergic Reaction 06/20/20 03/22/23 Unknown injection, auto-injector (EpiPen 2-Alvarez) levothyroxine 88 mcg tablet 88 mcg PO QAM 06/20/20 03/22/23 Unknown CPAP Machine See Rx Instructions .Route 06/02/21 03/22/23 Unknown .COMPLEX #1 ea pitolisant 4.45 mg tablet See Rx Instructions PO DAILY #90 02/06/23 03/22/23 Unknown tabs Biofunction Supplement 1 tab PO QAM 03/22/23 03/22/23 Unknown gabapentin 300 mg capsule 300 mg PO BID PRN Pain 03/22/23 03/22/23 Unknown magnesium 1 tab PO DAILY 03/22/23 03/22/23 Unknown meloxicam 15 mg tablet 15 mg PO QAM 03/22/23 03/22/23 Unknown pyridoxine (vitamin B6) 25 mg 30 mg PO QAM 03/22/23 03/22/23 Unknown tablet (Vitamin B-6) Past Medical History Medical History (Updated 04/01/23 @ 10:15 by Aurelia Mcelroy PA-C) Cataplexy f/u dr. chandler, [facility] [place] Cervical radiculopathy denies change or worsening in chronic left upper extremity paresthesias Do not resuscitate status Per discussion with patient 03/29/23 GERD (gastroesophageal reflux disease) controlled, stable per pt Hepatic cyst enlarged and steatotic, 1.3 cm cyst R hepatic lobe 06/20/20 chest CTA Hiatal hernia s/p surgical intervention History of anesthesia complications following surgery in 06/2020, in [place], pt was hypoxic and apneic for 8- 9 hours post-op subsequently found to be covid +; "never had any trouble with anesthesia any time before or after or after this surgery" History of atrial fibrillation 2008 - s/p ablation - recurrence during COVID illness- on anticoagulation for several months and subsequently d/c'ed-follows w/ Dr. Kinney History of atrial flutter History of colon polyps History of COVID-19 06/2020, hospitalized at [facility] for 8 days; respiratory failure and unresponsiveness for 3 days, developed a-fib while hospitalized-placed on anticoagulants as precaution and no a-fib following discharge>"by definition he has long covid" History of nephrolithiasis several yrs ago Hypothyroidism Lumbar facet joint syndrome Lumbar spondylosis Nocturnal hypoxia following covid-still uses CPAP at HS Pain of left sacroiliac joint Renal cyst 1.9 cm upper pole of R kidney Right knee DJD Rupture of left quadriceps tendon Repair x3--01/22, 06/24 and 11/23>all failed procedures, no quad remains on the left Sleep apnea severe sleep apnea, follows with [place] pulmonology-CPAP Patient denies h/o stroke, seizures, heart attack, heart failure, DM, HTN, blood clot, DVT or blood transfusion. Exercise / Class Metabolic Activity II 4-5 Yardwork/Stairs/Walk up hill (denies shortness of breath or chest discomfort with 1 FOS) Past Family History Family History Father Prostate cancer Atrial fibrillation CHF (congestive heart failure) Stroke Mother Breast cancer Other No family history of adverse response to anesthesia Past Surgical History Surgical History History of cardiac catheterization atrial fib after having covid and on anticoagulants-was having aberrant rhythm, stress test indeterminate led to cath>no stents, [place] History of cardiac radiofrequency ablation x 2 (A.fib/A.flutter) History of carpal tunnel release Lt and left median release History of colonoscopy History of hernia repair History of lithotripsy History of repair of ACL Rt x 2 History of right inguinal hernia repair History of surgery left quadriceps repair 01/20/2020 LMA#5. Hx of LASIK BL Past Anesthesia History No Family Hx of Anesthesia Complications and Other (see above notation on 2019 surgery in [place]) History of PONV No Hx of PONV and No Hx of Motion Sickness Social History Smoking Status: Never smoker Do You Dip or Chew Tobacco: No Hx Alcohol Use: Yes Alcohol type: beer, wine and hard liquor alcohol intake frequency: a few times a week Hx Substance Use: No substance use type: does not use Review of Systems Patient denies chest pain, shortness of breath, dyspnea on exertion, recent illness in the past 10 days, or palpitations. Physical Exam Vital Signs Vitals BP 146/87 P 79 TEMP 97.8 SP02 96% on RA RESP 18 Physical Patient resting comfortably in chair in NAD, alert and oriented, responding appropriately throughout visit Limited cervical extension range of motion with discomfort and left arm radicular symptoms (chronic per pt) TMD 3.5 finger breadths Mallampati Score 2 Dentition: one crown, denies chipped or loose teeth, caps, implants or bridges Lungs: normal respiratory effort. Good air movement, clear throughout to auscultation, no adventitious breath sounds Cardiac: regular rate and rhythm, no murmurs noted Carotid arteries: negative bruit bilat Extremities: 1+ pitting left lower extremity (noted at cardiology office visit and chronic without change or worsening per pt), trace edema at sockline right lower extremity, varicose veins Lab Results Anesthesia Preop Results Results Anesthesia Widget: WBC 6.08 K/ul (4.8-10.8) 03/29/23 Hgb 13.7 g/dl (14.0-18.0) L 03/29/23 Hct 39.6 % (42.0-52.0) L 03/29/23 Plt 245 K/uL (130-400) 03/29/23 Na 140 mmol/L (136-145) 03/29/23 K 3.8 mmol/L (3.5-5.1) 03/29/23 Cl 108 mmol/L (98-107) H 03/29/23 CO2 24 mmol/L (21-32) 03/29/23 BUN 17 mg/dl (6-23) 03/29/23 Creat 0.77 mg/dl (0.6-1.4) 03/29/23 Glucose Level 107 mg/dl (70-99(Fasting)) H 03/29/23 PT 10.3 Seconds (9.0-12.0) 03/29/23 PTT 26.4 Seconds (21.0-31.0) 03/29/23 INR 0.9 (0.9-1.1) 03/29/23 Urine Color Yellow 03/29/23 Urine Appearance Clear (Clear) 03/29/23 Urine pH 7.0 (4.5-7.5) 03/29/23 Urine Specific [place] 1.008 (1.000-1.030) 03/29/23 Urine Protein Negative (Negative) 03/29/23 Urine Glucose (UA) Negative (Negative) 03/29/23 Urine Ketones Negative (Negative) 03/29/23 Urine Blood Negative (Negative) 03/29/23 Urine Nitrite Negative (Negative) 03/29/23 Urine Bilirubin Negative (Negative) 03/29/23 Urine Urobilinogen Negative (Negative) 03/29/23 Urine Leukocyte Esterase Negative (Negative) 03/29/23 Blood Type A Positive 03/29/23 Antibody Screen NEGATIVE 03/29/23 Testing Electrocardiogram Date: 03/29/23 NSR, rate 64 bpm Incomplete RBBB Chest X-Ray Date: 03/29/23 No acute process, mild right hemidiaphragmatic elevation Echocardiogram Date: 04/01/23 EF 60-65% No regional wall motion abnormalities Mild cLVH Mildly dilated LV Mildly dilated RV Moderate LA dilation Mild RA dilation Mild mitral regurgitation Compared to prior study on 01/20/2019, similar findings Technically difficult study Cardiac Catheterization Date: 01/29/19 Left main: no evidence of disease LAD: arises from the left main and is a large caliber vessel
[~2023-04-12 06:13] MED LIST changes: +ACETAMINOPHEN 500 MG TAB PO SCH; -ANTIHISTAMINE; +CeleBREX 200 MG CAP PO SCH; -ESCI1TAB9 PO; +GABAPENTIN 600 MG DOSE PO SCH; -LEVO75TA PO; +LR 15ML/HR IV SCH; +LR 60ML/HR IV SCH; -MELO7.5T5 PO; -MULT1CAP16 PO; -OXYC-57 PO; -TAMS0.4C38 PO; +ceFAZolin 2000MG 2,000 MG/15 ML SYR IV SCH
[2023-04-12] MEDS ORDERED: FAMOTIDINE/PF 20 MG/2 ML VIAL IV ONE (06:20)
[2023-04-12] MEDS ORDERED: LIDOCAINE 2% 2 ML VIAL/AMP(20MG/ML) INFIL ONE (06:38)
[2023-04-12] MEDS ORDERED: PROPOFOL IV EMULSION 10 MG/ML 20 ML VIAL IV ONE (06:38)
[2023-04-12] MEDS ORDERED: ONDANSETRON INJ 2 MG/ML 2 ML VIAL ONE (06:38)
[2023-04-12] MEDS ORDERED: DEXAMETHASONE SOD INJ 4 MG/ML VIAL ONE (06:38)
[2023-04-12] MEDS ORDERED: ROCURONIUM BROMIDE 10 MG/ML 5 ML VIAL IV ONE (06:38)
[2023-04-12] MEDS ORDERED: diphenhydrAMINE 50 MG/ML VIAL ONE (06:38)
[2023-04-12] MEDS ORDERED: MIDAZOLAM HCL 1 MG/ML 2ML VIAL ONE (06:39)
[2023-04-12] MEDS ORDERED: KETAMINE 50 MG/5 ML SYRINGE ONE (06:39)
[2023-04-12] MEDS ORDERED: HYDROmorphone INJ 2 MG/ML SYR/VIAL ONE (06:39)
[2023-04-12] MEDS ORDERED: ceFAZolin 330 MG/ML 1 GM VIAL ONE (07:04)
[2023-04-12] MEDS ORDERED: BUPIVACAINE/EPINEPHRINE 0.5% MPF 1:200,000 30 ML VIAL ONE (07:04)
[2023-04-12] MEDS ORDERED: fentaNYL citrate PF 100 MCG/2 ML VIAL ONE ×3 (07:33→09:59)
--- NOTE | 2023-04-12 07:34 | History & Physical Bridge Note ---
Date of Service April 12, 2023 History & Physical Bridge Note I have examined the patient, reviewed the History & Physical and in the interval since the performance of the History & Physical I have noted the following changes of clinical significance: no changes noted
--- NOTE | 2023-04-12 07:35 | History & Physical Report ---
Date of Service April 12, 2023 Assessment & Plan (1) Neurogenic claudication due to lumbar spinal stenosis: Plan: L2-L4 decompression with Coflex History of Present Illness Chief Complaint: Back and leg pain Primary Care Provider: Joe Glasgow MD Allergies Allergy/AdvReac Type Severity Reaction Status Date / Time almond Allergy Anaphylaxis Verified 04/12/23 06:41 apple Allergy Anaphylaxis Verified 04/12/23 06:41 bee venom protein (honey bee) Allergy Anaphylaxis Verified 04/12/23 06:41 carrot Allergy Anaphylaxis Verified 04/12/23 06:41 Home Medications Medication Instructions Recorded Confirmed Type multivitamin 1 tab PO DAILY 07/21/19 04/12/23 History pantoprazole 40 mg tablet,delayed 40 mg PO DAILY PRN Acid Reflux 01/16/20 04/12/23 History release epinephrine 0.3 mg/0.3 mL 0.3 mg IM Q4H PRN Allergic Reaction 06/20/20 04/12/23 History injection, auto-injector (EpiPen 2-Alvarez) levothyroxine 88 mcg tablet 88 mcg PO QAM 06/20/20 04/12/23 History CPAP Machine See Rx Instructions .Route 06/02/21 03/22/23 Rx .COMPLEX #1 ea pitolisant 4.45 mg tablet See Rx Instructions PO DAILY #90 02/06/23 04/12/23 Rx tabs Biofunction Supplement 1 tab PO QAM 03/22/23 04/12/23 History gabapentin 300 mg capsule 300 mg PO BID PRN Pain 03/22/23 04/12/23 History magnesium 1 tab PO DAILY 03/22/23 04/12/23 History meloxicam 15 mg tablet 15 mg PO QAM 03/22/23 04/12/23 History pyridoxine (vitamin B6) 25 mg 30 mg PO QAM 03/22/23 04/12/23 History tablet (Vitamin B-6) Past Med/Surg History Medical History (Updated 04/12/23 @ 07:35 by Gregg Chambers DO) Cataplexy f/u dr. chandler, [facility] [place] Cervical radiculopathy denies change or worsening in chronic left upper extremity paresthesias Do not resuscitate status Per discussion with patient 03/29/23 GERD (gastroesophageal reflux disease) controlled, stable per pt Hepatic cyst enlarged and steatotic, 1.3 cm cyst R hepatic lobe 06/20/20 chest CTA Hiatal hernia s/p surgical intervention History of anesthesia complications following surgery in 06/2020, in [place], pt was hypoxic and apneic for 8- 9 hours post-op subsequently found to be covid +; "never had any trouble with anesthesia any time before or after or after this surgery" History of atrial fibrillation 2008 - s/p ablation - recurrence during COVID illness- on anticoagulation for several months and subsequently d/c'ed-follows w/ Dr. Kinney History of atrial flutter History of colon polyps History of COVID-19 06/2020, hospitalized at [facility] for 8 days; respiratory failure and unresponsiveness for 3 days, developed a-fib while hospitalized-placed on anticoagulants as precaution and no a-fib following discharge>"by definition he has long covid" History of nephrolithiasis several yrs ago Hypothyroidism Lumbar facet joint syndrome Lumbar spondylosis Nocturnal hypoxia following covid-still uses CPAP at HS Pain of left sacroiliac joint Renal cyst 1.9 cm upper pole of R kidney Right knee DJD Rupture of left quadriceps tendon Repair x3--01/22, 06/24 and 11/23>all failed procedures, no quad remains on the left Sleep apnea severe sleep apnea, follows with [place] pulmonology-CPAP Surgical History History of cardiac catheterization atrial fib after having covid and on anticoagulants-was having aberrant rhythm, stress test indeterminate led to cath>no stents, [place] History of cardiac radiofrequency ablation x 2 (A.fib/A.flutter) History of carpal tunnel release Lt and left median release History of colonoscopy History of hernia repair History of lithotripsy History of repair of ACL Rt x 2 History of right inguinal hernia repair History of surgery left quadriceps repair 01/20/2020 LMA#5. Hx of MENA BL Family History Father Prostate cancer Atrial fibrillation CHF (congestive heart failure) Stroke Mother Breast cancer Other No family history of adverse response to anesthesia Social History Smoking Status: Never smoker Second Hand Exposure: Yes (hx as child); Do You Dip or Chew Tobacco: No; Tobacco Cessation Education Requested by Patient: No Hx Alcohol Use: Yes Alcohol type: beer, wine and hard liquor Hx Substance Use: No Preferred Language: Lithuanian Communication Ability: Effective Visual Impairment: No Limitations Hearing Ability: Normal Data Warehouse Analyst Required: No Beliefs That Will Affect Care: None marital status: Current Living Situation: Spouse current occupational status: employed current occupation: [employer] Other Information That Helps Us Care for You: No Feels Safe at Home: Yes Safety Concerns: Feels Safe At This Time Assistive Devices: CPAP Physical Exam Physical Exam: Patient is alert and oriented Heart regular rhythm Lungs clear Results & Data Results & Data Vital Signs (Past 12 Hours) Vital Signs Temp Pulse Resp BP Pulse Ox O2 Del Method 04/12/23 06:46 36.8 C 75 20 135/83 97 Room Air
[2023-04-12] MEDS ORDERED: SUGAMMADEX SODIUM 200 MG/2 ML VIAL IV ONE (08:07)
[2023-04-12] MEDS ORDERED: ePHEDrine sulfate 50 MG/ML AMP ONE (08:11)
[2023-04-12] MEDS ORDERED: SODIUM CHLORIDE 0.9% PF INJ 10 ML VIAL ONE (08:11)
[2023-04-12] MEDS ORDERED: FLOSEAL HEMOSTATIC MATRIX 10ML TOP ONE (08:31)
--- NOTE | 2023-04-12 09:21 | Operative Report ---
Post Operative Report Pre & Post Diagnosis Operation Date: 04/12/23 07:45 Pre-Op Diagnosis: Neurogenic claudication due to lumbar spinal stenosis Post-Op Diagnosis: Neurogenic claudication due to lumbar spinal stenosis I identified the patient and participated in the time-out.: Yes Procedure Operation Date: 04/12/23 07:45 Actual Procedures 1. Lumbar decompression bilateral medial facetectomies L2-3 L3-4. #2 placement of Coflex 16 mm interlaminar spacer at L2-L3 and 14 at L3-L4. Surgeon Gregg Chambers, Cluster Bore Operator Jairo Schafer Estimated Blood Loss 50 Findings Consistent with Post-Op Diagnosis Specimens none Indications This is a 58-year-old male who presents with chronic persistent neurogenic claudication and radiculopathy. Failing since course of nonoperative care is here for surgical intervention. Description of Procedure Patient was met with identified informed consent obtained. Patient was then taken to the operative suite underwent patient placed in a prone position on the Jex table top Eleazar frame. All bony promises well-padded eyes inspected to ensure no external pressure placed upon the. This point the lumbar spine was prepped and draped in a sterile fashion. Sharp dissection with the assistance of Bovie cautery to form down to and exposing the lamina and interlaminar spaces at L2-L3 L3-L4. Then performed a midline decompression L2-L3 including bilateral medial facetectomies addressing severe lateral recess stenosis. After this was complete a 16 mm Coflex was tamped into the interlaminar space and crimped into position. Then proceeded to L3-L4 and again midline decompression including bilateral medial facetectomies of performed addressing all lateral recess stenosis. After this was complete a 14 mm Coflex was tamped interlaminar space and crimped into position. The incision was then copiously irrigated 10 round LUCIA drain inserted. The incision was then closed with 1 Vicryl to fascia 2-0 Vicryl subcutaneously and 4 Monocryl for fascial closure. Steri-Strips sterile dressings placed. Patient waken taken to PACU in stable condition. Please note Jairo Schafer was present at the entire procedure involved the patient positioning complex portion of the surgery and final skin closure. I attest to the content of the Intraoperative Record and any orders documented therein. Any exceptions are noted below.
--- NOTE | 2023-04-12 09:55 | Fluoroscopy Report ---
FL lumbar spine 2-3V CLINICAL HISTORY: L2-L4 WITH COFLEX COMPARISON STUDY: None. FLUOROSCOPY TIME: 14 seconds FLUOROSCOPY IMAGES: 3 Ka,r: 12.98 mGy FINDINGS: Coflex devices are noted at the L2-L3 and L3-L4 levels. These appear in good position. The hardware appears is intact. IMPRESSION: Fluoroscopic assistance as above. ACT 112: Negative or not required by law. Electronically signed by: Kota Madsen M.D. 04/12/2023 9:54 AM
[2023-04-12] MEDS ORDERED: ePHEDrine sulfate 50 MG/ML AMP IV PRN (10:01)
[2023-04-12] MEDS ORDERED: PROMETHAZINE HCL 12.5 MG in SODIUM CHLORIDE 0.9% 50 ML IV PRN ×2 (10:01→11:41)
[2023-04-12] MEDS ORDERED: ONDANSETRON INJ 2 MG/ML 2 ML VIAL IV PRN ×2 (10:01→11:41)
[2023-04-12] MEDS ORDERED: HYDROmorphone INJ 2 MG/ML SYR/VIAL IV PRN (10:01)
[2023-04-12] MEDS ORDERED: ATROPINE SULFATE 0.1 MG/ML 10ML SYR IV PRN (10:01)
[2023-04-12] MEDS: fentaNYL citrate PF 100 MCG/2 ML VIAL IV PRN ×2 (10:02→10:07)
--- NOTE | 2023-04-12 11:16 | Anesthesiology Progress Note ---
Date of Service April 12, 2023 Anesthesia Post Procedure Vital Signs Vital Signs: Temp Pulse Pulse Resp BP BP Pulse Ox 04/12/23 11:00 75 14 132/69 100 04/12/23 10:45 36.2 C L 78 12 140/84 95 04/12/23 10:35 74 12 135/74 95 04/12/23 10:25 73 12 133/73 96 04/12/23 10:15 84 12 136/74 96 04/12/23 10:05 78 12 129/74 98 04/12/23 09:55 86 12 129/74 100 04/12/23 09:45 87 15 135/76 100 04/12/23 09:40 94 H 15 98 04/12/23 09:38 36.1 C L 92 H 16 136/75 100 04/12/23 06:46 36.8 C 75 20 135/83 97 O2 Del Method O2 Flow Rate FiO2 04/12/23 11:00 BiPAP 30 04/12/23 10:45 Nasal Cannula 3 04/12/23 10:35 Nasal Cannula 3 04/12/23 10:25 Nasal Cannula 3 04/12/23 10:15 Nasal Cannula 2 04/12/23 10:05 Nasal Cannula 2 04/12/23 09:55 Nasal Cannula 2 04/12/23 09:45 BiPAP 30 04/12/23 09:40 30 04/12/23 09:38 BiPAP 30 04/12/23 06:46 Room Air Pain Intensity Left Lower Back: Pain Intensity: 7 Transfer of Care Handoff Completed per policy Notes Mental Status: alert / awake / arousable and participated in evaluation Patient Amnestic to Procedure: Yes Nausea / Vomiting: adequately controlled Pain: adequately controlled Airway Patency, RR, SpO2: stable & adequate BP & HR: stable & adequate Hydration State: stable & adequate Anesthetic Complications: no major complications apparent
[2023-04-12] MEDS: LACTATED RINGER'S 1,000 ML IV SCH ×2 (11:35→17:55)
[2023-04-12] MEDS ORDERED: LORazepam 0.5 MG TAB PO PRN (11:41)
[2023-04-12] MEDS ORDERED: HYDROmorphone INJ 1 MG/ML SYRINGE IV PRN (11:41)
[2023-04-12] MEDS ORDERED: MAGNESIUM HYDROXIDE SUSP 30 ML UDC PO PRN (11:41)
[2023-04-12] MEDS ORDERED: ALUMINUM/MAGNESIUM SUSP 30 ML UDC PO PRN (11:41)
[2023-04-12] MEDS ORDERED: FAMOTIDINE 20 MG TAB PO PRN (11:41)
[2023-04-12] MEDS ORDERED: ACETAMINOPHEN 500 MG TAB PO PRN (11:41)
[2023-04-12] MEDS ORDERED: diphenhydrAMINE Capsule 25 MG CAP PO PRN (11:41)
[2023-04-12] MEDS ORDERED: DO NOT ADMINISTER PNEUMOCOCCAL VACCINE PRN (11:41)
[2023-04-12] MEDS ORDERED: GABAPENTIN 300 MG CAP PO PRN (11:41)
[2023-04-12] MEDS ORDERED: ONDANSETRON 4 MG OD TAB PO PRN (11:41)
[2023-04-12] MEDS ORDERED: bisacodyL 10 MG SUPP PR PRN (11:41)
[2023-04-12] MEDS ORDERED: PANTOprazole 40 MG TAB PO PRN (11:41)
[2023-04-12] MEDS ORDERED: NALOXONE HCL 0.4 MG/1 ML VIAL/CARP IV PRN (11:41)
[2023-04-12] MEDS ORDERED: LORazepam 2 MG/1 ML VIAL IV PRN (11:41)
[2023-04-12] MEDS ORDERED: traMADol HCL 50 MG TABLET PO PRN (11:41)
[2023-04-12] MEDS ORDERED: METOCLOPRAMIDE HCL INJ 5 MG/ML 2 ML VIAL IV PRN (11:41)
[2023-04-12] MEDS ORDERED: SOD PHOSPHATE/SOD BIPHOSPHATE ENEMA 132 ML BTL PR PRN (11:41)
[2023-04-12] MEDS ORDERED: DO NOT ADMINISTER FLU VACCINE PRN (11:41)
[2023-04-12] MEDS ORDERED: hydrOXYzine HCl 25 MG TAB PO PRN (11:41)
[2023-04-12] MEDS ORDERED: ACETAMINOPHEN 1,000 MG/100 ML VIAL IV PRN (11:41)
[2023-04-12] MEDS: HYDROmorphone INJ 0.5 MG/0.5 ML SYR IV PRN ×2 (13:20→16:59)
[2023-04-12] MEDS: ceFAZolin 2000MG 2,000 MG/15 ML SYR IV SCH (16:59)
[2023-04-12] MEDS: oxyCODONE HCL IR 5 MG TAB (IMMEDIATE RELEASE) PO PRN (18:00)
[2023-04-12] MEDS ORDERED: DOCUSATE SODIUM/SENNA 50/8.6MG TAB PO SCH (21:00)
[2023-04-12] MEDS ORDERED: COUGH DROP (SUGAR FREE) LOZ 24 LOZ/1 BOX BUCCAL ONE (21:07)
[2023-04-13] MEDS: ceFAZolin 2000MG 2,000 MG/15 ML SYR IV SCH (00:23)
[2023-04-13] MEDS: oxyCODONE HCL IR 5 MG TAB (IMMEDIATE RELEASE) PO PRN ×4 (00:23→08:50)
[2023-04-13] MEDS: LACTATED RINGER'S 1,000 ML IV SCH (00:25)
[2023-04-13] MEDS ORDERED: COUGH DROP (SUGAR FREE) LOZ 24 LOZ/1 BOX BUCCAL ONE ×2 (01:12→07:26)
[2023-04-13] MEDS ORDERED: POLYETHYLENE (MIRALAX) 17 GM PACK PO SCH (06:00)
[2023-04-13] MEDS ORDERED: LEVOTHYROXINE SODIUM 88 MCG TABLET PO SCH (06:30)
[2023-04-13] MEDS ORDERED: MULTIVITAMIN TAB PO SCH (09:00)
[2023-04-13] MEDS ORDERED: PYRIDOXINE HCL 50 MG TAB PO SCH (09:00)
[2023-04-13] MEDS ORDERED: NON-FORMULARY MEDICATION (Magnesium Tablet) PO SCH (09:00)
[2023-04-13] MEDS ORDERED: dexAMETHasone 6 MG in SYRINGE 0 ML IV SCH (09:00)
--- NOTE | 2023-04-13 09:18 | Discharge Summary ---
Date of Service April 13, 2023 Principal Diagnosis Lumbar spinal stenosis with radiculopathy Discharge Data Allergies Allergy/AdvReac Type Severity Reaction Status Date / Time almond Allergy Anaphylaxis Verified 04/12/23 06:41 apple Allergy Anaphylaxis Verified 04/12/23 06:41 bee venom protein (honey bee) Allergy Anaphylaxis Verified 04/12/23 06:41 carrot Allergy Anaphylaxis Verified 04/12/23 06:41 Procedures Performed Operation Date: 04/12/23 07:45 Actual Procedures p L2-L4 Decompression with Coflex(Not Applicable) - Gregg Chambers DO Ordered Studies 04/12/23 07:45 [place] lumbar spine 2-3V Routine Hospital Course (1) Neurogenic claudication due to lumbar spinal stenosis: Patient went lumbar decompression with placement of Coflex interlaminar spaces. Patient tolerated procedure well was taken to orthopedic floor postoperatively. Postop day 1 is up and ambulating leg pain improved pain well controlled subsequently discharged home. Discharge orders instructions found in chart for further review. Total Time Total Time Spent Total Time Spent (In Minutes): 20 minutes Discharge Plan Discharge Items Patient Disposition: Home - Self-Care Reason For Visit: Low Back Pain Discharge Diagnosis: lumbar stenosis Activity: As commented below Non-emergency contact: Primary Care Provider Call non-emergency contact if: you have any medication questions Follow-up/Referrals: Joe Glasgow MD [Primary Care Provider] - Diet: Regular Addtl Attending Provider Instructions: ACTIVITY RECOMMENDATIONS: SELF CARE INSTRUCTIONS AFTER THORACIC/LUMBAR FUSIONS 1. You may walk to your tolerance. It is good exercise for your legs and back. Expect some back and intermittent leg aches and pains. 2. You may perform "counter-top" level activities (make a sandwich, raul with a project, etc.). 3. No bending or lifting of more than 10 pounds or back twisting of any nature (roll like a log when turning in bed). 4. You may ride in a car for 20-30 minutes at a time. No driving until after your first visit with your doctor. 5. Frequent changes of position and restricting sitting to 30 minutes at a time will help limit the amount of back spasms and stiffness you may experience. 6. You may discontinue the use of ambulatory aids (cane, crutches, etc.) once your strength and confidence allow. 7. You may car refinisher the shower and let water strike your incision when you arrive home at least once daily. Do not take a tub bath, sit in a hot tub or go into a swimming pool until after your first recheck in the office. SPECIAL CARE INSTRUCTIONS: VERY IMPORTANT TO READ AND REVIEW A. Your surgical incision has been closed with a cosmetic suture under the skin that will dissolve in about 6 weeks. In 14 days, you can use a pair of clean scissors and cut the suture that is left outside of the skin at the ends of your incision. 1. The small skin tapes can be removed 7 days after surgery if they have not fallen off by that point. 2. You may keep the wound open to air as much as possible to promote healing after post-op day number 5 unless told otherwise by your doctor. 3. If you think the wound looks like it is becoming infected (redness or worsening drainage) and/or you are experiencing fever, chill or worsening back pain and muscle spasms, contact the office so that we may evaluate you as soon as possible. B. Complications are uncommon, but please contact us if you have any signs or symptoms of: 1. wound infection (fever higher than 102.5 degrees F, redness, separation of wound, drainage, or increasing pain from the incision) 2. blood clots in legs (pain, swelling, redness and warmth in legs) 3. urinary tract infection (fever higher than 102.5 degrees F, burning upon urination or increased frequency of urination) 4. nerve problems (inability to walk on your toes or heels, numbness, loss of bowel or bladder control) 5. any other symptoms that concern you C. Please call the office at if you have any concerns or questions about your operation or recovery. D. No smoking! Smoking drastically decreases the chance of a solid fusion. E. Do not take any anti-inflammatory medications (Indocin, Advil, Motrin, Aspirin, Naprosyn, etc.) as these may inhibit the chance of a solid fusion. Tylenol is okay to take for pain. MANAGING PAIN AFTER SPINAL SURGERY 1. Narcotic medication is intended for short-term use and will be provided for surgical pain. Surgical pain usually lasts for a period of 4-6 weeks. Narcotic medication includes Percocet, Vicodin, Darvocet, Tylenol #3 or Lortab. 2. Longer-term pain is more appropriately treated with non-narcotic medication such as Tylenol ES. 3. Muscle spasm is not appropriately treated with narcotics. Muscle relaxers such as Soma, Flexeril or Skelaxin can be used along with Tylenol ES. 4. Remember that we all live with some "aches and pains". This is not unusual or uncommon after an injury or as we get older. a. Back pain is expected and may include muscle spasms for 4 to 6 weeks after surgery. The pain should gradually improve. If the pain worsens for no apparent reason, please contact the office. b. Intermittent leg pain may also be experienced and should not be concerned about unless it worsens for no apparent reason. If so, please contact the office. 5. We will provide appropriate medication within the normal guidelines of their prescribed use. We will also be very cautious and aware of potential abuse and extended duration of patients' medication needs. a. Pain medications are for your comfort and to assist with sleep and rest so that the tissue can heal. They are not provided in order to return to normal activity and should not be used through the day. To do so or worsening pain at night can result from ongoing tissue damage and development of tolerance to the prescribed medicine. 6. Please allow 2-3 days to process refills. Prescriptions will not be mailed but must be picked up at the office. FOLLOW UP VISIT: Keep your scheduled follow-up appointment. Any questions, please call the office at . Pending Studies at Discharge: No Stand-Alone Forms: My [facility], Smoking Cessation Medications and DC Order Prescriptions: New tramadol 50 mg tablet 50 mg PO Q6H PRN (Reason: pain, moderate) Qty: 30 0RF oxycodone 5 mg tablet 5 mg PO Q6H PRN (Reason: pain) Qty: 30 0RF Continued multivitamin tablet 1 tab PO DAILY pitolisant 4.45 mg tablet See Rx Instructions PO DAILY Qty: 90 2RF Patient Comments: has not started yet. Rx Instructions: 8.9 mg daily for one week, then 17.8 mg daily CPAP Machine Misc See Rx Instructions .ROUTE .COMPLEX Qty: 1 0RF Rx Instructions: CPAP at 13 cm of water, mask fit to patient comfort, heated humidification, compliance download capabilities, Care Plus oxygen; pantoprazole 40 mg tablet,delayed release (DR/EC) 40 mg PO DAILY PRN (Reason: Acid Reflux) levothyroxine 88 mcg tablet 88 mcg PO QAM epinephrine [EpiPen 2-Alvarez] 0.3 mg/0.3 mL Auto-Injector 0.3 mg IM Q4H PRN (Reason: Allergic Reaction) pyridoxine (vitamin B6) [Vitamin B-6] 25 mg Tablet 30 mg PO QAM magnesium Tablet 1 tab PO DAILY Patient Comments: 125mg meloxicam 15 mg tablet 15 mg PO QAM gabapentin 300 mg capsule 300 mg PO BID PRN (Reason: Pain) Biofunction Supplement 1 tab PO QAM Discharge Orders: Discharge Order (Routine); Ordered 04/13/23 Ordered By: Gregg Chambers Admission Data Admit Date/Time: 04/12/23 10:17 Attending Provider: Gregg Chambers Admit Provider: Gregg Chambers Primary Care Provider: Joe Glasgow
== END 2023-04-13 11:36 | disposition home or self-care (01) ==
LOC: ASU 06:13 → 3E 10:17 → INTOOBSV 10:17

== ENCOUNTER 2023-05-23 05:47 | Inpatient (IN) ==
--- NOTE | 2023-05-16 10:56 | Anesthesiology Consultation ---
Date of Service May 16, 2023 Assessment & Plan (1) Encounter for pre-operative examination: Plan - s/p L2-L4 decompression fusion with coflex placement 04/12/23: Grade 1 view, glidescope 4, ETT 8. -PCP pre-op evaluation 04/01/23 [facility]:"...preoperative evaluation at the request of Dr. Chambers Procedure and Date of surgery: lumbar decompression fusion surgery 04/12/23...Preoperative labs-03/29/2023-normal CBC, BMP, coags, urinalysis --reviewed on his phone [facility] portal. Chest x-ray no acute process. EKG-NSR at 64 bp.m., incomplete right bundle branch block...low risk For perioperative cardiac event and may undergo the proposed surgery under noninvasive cardiac monitoring. Continue using CPAP at night, monitor for postoperative hypoxia..." -pulmonology 11/13/22 [facility]:"...Severe sleep apnea...counseled regarding potential worsening of sleep disordered breathing associated with alcohol, sedative hypnotics, narcotics, or weight gain...hypersomnolence associated with treated sleep apnea..." -cardiology office visit 03/02/22 [facility]: "...history of atrial arrhythmias with previous pulmonary vein isolation ablation for atrial fibrillation, caval tricuspid isthmus ablation for atrial flutter...notes some degree of shortness of breath with exertion, and notes lower extremity edema...mild pitting edema is noted that progresses...day goes on...left greater than right...wearing com pression stockings...no subjective palpitations since he had an episode of atrial fibrillation while acutely hospitalized for COVID in June 2020...chest pain with equivocal stress testing, prompting invasive coronary angiography, January 2019 with angiographically normal coronary arteries...continue current treatment, off of beta-marilu and anticoagulation therapy, with no recent recurrence of atrial arrhythmias...proceed with a chemistry panel prior to consideration of furosemide for treatment of lower extremity edema...due to shortness of breath and lower extremity edema, proceed with updating echocardiogram...going to be performed at [facility]...Return in 1 year..." - Per assessment technician on 05/16/2023: No known infectious disease contacts, current infectious disease symptoms in past 10 days or COVID positive test result in the past 90 days. Chart Review Chart Review: Acceptable Risk for Surgery and Patient NOT seen in Pre Admission Testing History Surgery Operation Date: 05/24/23 12:45 Proposed Procedures p L2-L4 Decompression and Fusion, Removal of Coflex, Spinal Cord Monitoring - Gregg Chambers DO Height/Weight Height: 6 ft 1 in Weight: 117.934 kg Allergies Allergy/AdvReac Type Severity Reaction Status Date / Time almond Allergy Anaphylaxis Verified 05/16/23 10:39 apple Allergy Anaphylaxis Verified 05/16/23 10:39 bee venom protein (honey bee) Allergy Anaphylaxis Verified 05/16/23 10:39 carrot Allergy Anaphylaxis Verified 05/16/23 10:39 Medications Home Medications Medication Instructions Recorded Confirmed Last Taken multivitamin 1 tab PO DAILY 07/21/19 05/16/23 04/10/23 pantoprazole 40 mg tablet,delayed 40 mg PO DAILY PRN Acid Reflux 01/16/20 05/16/23 04/12/23 04:30 release epinephrine 0.3 mg/0.3 mL 0.3 mg IM Q4H PRN Allergic Reaction 06/20/20 05/16/23 Unknown injection, auto-injector (EpiPen 2-Alvarez) levothyroxine 88 mcg tablet 88 mcg PO QAM 06/20/20 05/16/23 04/11/23 07:00 CPAP Machine See Rx Instructions .Route 06/02/21 05/16/23 Unknown .COMPLEX #1 ea Biofunction Supplement 1 tab PO QAM 03/22/23 05/16/23 04/10/23 magnesium 1 tab PO DAILY 03/22/23 05/16/23 04/10/23 meloxicam 15 mg tablet 15 mg PO QAM 03/22/23 05/16/23 04/08/23 pyridoxine (vitamin B6) 25 mg 30 mg PO QAM 03/22/23 05/16/23 04/08/23 tablet (Vitamin B-6) pitolisant 4.45 mg tablet See Rx Instructions PO DAILY #90 05/07/23 05/16/23 Unknown tabs pregabalin 50 mg capsule 50 mg PO BID #60 caps 05/09/23 05/16/23 Unknown duloxetine 30 mg capsule,delayed 30 mg PO DAILY 7 days #7 caps 05/13/23 05/16/23 Unknown release duloxetine 60 mg capsule,delayed 60 mg PO DAILY #30 caps 05/13/23 05/16/23 Unknown release Past Medical History Medical History Cat[place] f/[place] [facility] [place]ervical radiculopathy denies change or worsening in chronic left upper extremity paresthesias Do not resuscitate status Per discussion with patient 03/29/23 GERD (gastroesophageal reflux disease) controlled, stable per pt Hepatic cyst enlarged and steatotic, 1.3 cm cyst R hepatic lobe 06/20/20 chest CTA Hiatal hernia s/p surgical intervention History of anesthesia complications following surgery in 06/2020, in [place], pt was hypoxic and apneic for 8- 9 hours post-op subsequently found to be covid +; "never had any trouble with anesthesia any time before or after or after this surgery" History of atrial fibrillation 2008 - s/p ablation - recurrence during COVID illness- on anticoagulation for several months and subsequently d/c'ed-follows w/ Dr. Kinney History of atrial flutter History of colon polyps History of COVID-19 06/2020, hospitalized at [facility] for 8 days; respiratory failure and unresponsiveness for 3 days, developed a-fib while hospitalized-placed on anticoagulants as precaution and no a-fib following discharge>"by definition he has long covid" History of nephrolithiasis several yrs ago Hypothyroidism Lumbar facet joint syndrome Lumbar spondylosis Mood disorder Nocturnal hypoxia following covid-still uses CPAP at HS Pain of left sacroiliac joint Renal cyst 1.9 cm upper pole of R kidney Right knee DJD Rupture of left quadriceps tendon Repair x3--01/22, 06/24 and 11/23>all failed procedures, no quad remains on the left Sleep apnea severe sleep apnea, follows with [facility] pulmonology-CPAP Past Family History Family History Father Prostate cancer Atrial fibrillation CHF (congestive heart failure) Stroke Mother Breast cancer Other No family history of adverse response to anesthesia Past Surgical History Surgical History History of cardiac catheterization atrial fib after having covid and on anticoagulants-was having aberrant rhythm, stress test indeterminate led to cath>no stents, [facility] History of cardiac radiofrequency ablation x 2 (A.fib/A.flutter) History of carpal tunnel release Lt and left median release History of colonoscopy History of hernia repair History of lithotripsy History of repair of ACL Rt x 2 History of right inguinal hernia repair History of surgery left quadriceps repair 01/20/2020 LMA#5. Hx of LASIK BL Status post lumbar spine surgery for decompression of spinal cord Coflex placement L2-3 and L3-4 04/12/2023 Social History Smoking Status: Never smoker Do You Dip or Chew Tobacco: No Hx Alcohol Use: Yes Alcohol type: beer, wine and hard liquor alcohol intake frequency: a few times a week Hx Substance Use: No substance use type: does not use Lab Results Anesthesia Preop Results Results Anesthesia Widget: WBC 6.08 K/ul (4.8-10.8) 03/29/23 Hgb 13.7 g/dl (14.0-18.0) L 03/29/23 Hct 39.6 % (42.0-52.0) L 03/29/23 Plt 245 K/uL (130-400) 03/29/23 Na 140 mmol/L (136-145) 03/29/23 K 3.8 mmol/L (3.5-5.1) 03/29/23 Cl 108 mmol/L (98-107) H 03/29/23 CO2 24 mmol/L (21-32) 03/29/23 BUN 17 mg/dl (6-23) 03/29/23 Creat 0.77 mg/dl (0.6-1.4) 03/29/23 Glucose Level 107 mg/dl (70-99(Fasting)) H 03/29/23 PT 10.3 Seconds (9.0-12.0) 03/29/23 PTT 26.4 Seconds (21.0-31.0) 03/29/23 INR 0.9 (0.9-1.1) 03/29/23 Urine Color Yellow 03/29/23 Urine Appearance Clear (Clear) 03/29/23 Urine pH 7.0 (4.5-7.5) 03/29/23 Urine Specific [place] 1.008 (1.000-1.030) 03/29/23 Urine Protein Negative (Negative) 03/29/23 Urine Glucose (UA) Negative (Negative) 03/29/23 Urine Ketones Negative (Negative) 03/29/23 Urine Blood Negative (Negative) 03/29/23 Urine Nitrite Negative (Negative) 03/29/23 Urine Bilirubin Negative (Negative) 03/29/23 Urine Urobilinogen Negative (Negative) 03/29/23 Urine Leukocyte Esterase Negative (Negative) 03/29/23 Blood Type A Positive 03/29/23 Antibody Screen NEGATIVE 03/29/23 Testing Electrocardiogram Date: 03/29/23 NSR, rate 64 bpm Incomplete RBBB Chest X-Ray Date: 03/29/23 No acute process, mild right hemidiaphragmatic elevation Echocardiogram Date: 04/01/23 EF 60-65% No regional wall motion abnormalities Mild cLVH Mildly dilated LV Mildly dilated RV Moderate LA dilation Mild RA dilation Mild mitral regurgitation Compared to prior study on 01/20/2019, similar findings Technically difficult study Cardiac Catheterization Date: 01/29/19 Left main: no evidence of disease LAD: arises from the left main and is a large caliber vessel Cx: no evidence of disease RCA: no evidence of disease Coronary arteries are angiographically normal
[2023-05-23] MEDS ORDERED: GABAPENTIN 600 MG DOSE PO SCH (06:00)
[2023-05-23] MEDS ORDERED: LR 15ML/HR IV SCH (06:00)
[2023-05-23] MEDS ORDERED: LR 60ML/HR IV SCH (06:00)
[2023-05-23] MEDS ORDERED: CeleBREX 200 MG CAP PO SCH (06:00)
[2023-05-23] MEDS ORDERED: ceFAZolin 2000MG 2,000 MG/15 ML SYR IV SCH (06:00)
[2023-05-23] MEDS ORDERED: ACETAMINOPHEN 500 MG TAB PO SCH (06:00)
[2023-05-23] MEDS ORDERED: ROCURONIUM BROMIDE 10 MG/ML 5 ML VIAL IV ONE ×2 (07:09→09:56)
[2023-05-23] MEDS ORDERED: PROPOFOL IV EMULSION 10 MG/ML 20 ML VIAL IV ONE (07:09)
[2023-05-23] MEDS ORDERED: LIDOCAINE 2% 2 ML VIAL/AMP(20MG/ML) INFIL ONE (07:09)
[2023-05-23] MEDS ORDERED: DEXAMETHASONE SOD INJ 4 MG/ML VIAL ONE (07:09)
[2023-05-23] MEDS ORDERED: ONDANSETRON INJ 2 MG/ML 2 ML VIAL ONE (07:09)
[2023-05-23] MEDS ORDERED: MIDAZOLAM HCL 1 MG/ML 2ML VIAL ONE ×2 (07:10)
[2023-05-23] MEDS ORDERED: fentaNYL citrate PF 100 MCG/2 ML VIAL ONE (07:10)
[2023-05-23] MEDS ORDERED: SUGAMMADEX SODIUM 200 MG/2 ML VIAL IV ONE (07:10)
[2023-05-23] MEDS ORDERED: ONDANSETRON INJ 2 MG/ML 2 ML VIAL IV PRN ×2 (07:15→12:31)
[2023-05-23] MEDS ORDERED: PROMETHAZINE HCL 6.25 MG in SODIUM CHLORIDE 0.9% 50 ML IV PRN (07:15)
[2023-05-23] MEDS ORDERED: ePHEDrine sulfate 50 MG/ML AMP IV PRN (07:15)
[2023-05-23] MEDS ORDERED: ATROPINE SULFATE 0.1 MG/ML 10ML SYR IV PRN (07:15)
--- NOTE | 2023-05-23 07:40 | History & Physical Bridge Note ---
Date of Service May 23, 2023 History & Physical Bridge Note I have examined the patient, reviewed the History & Physical and in the interval since the performance of the History & Physical I have noted the following changes of clinical significance: no changes noted
--- NOTE | 2023-05-23 07:42 | History & Physical Report ---
Date of Service May 23, 2023 Assessment & Plan (1) Neurogenic claudication due to lumbar spinal stenosis: Plan: L2-L4 decompression fusion, removal of Coflex History of Present Illness Chief Complaint: Back and leg pain Primary Care Provider: Joe Glasgow MD This is a 58-year-old male well-known to me presents with chronic persistent back and leg pain despite previous decompression he continues to have radiculopathy subsequently is here for lumbar fusion. Allergies Allergy/AdvReac Type Severity Reaction Status Date / Time almond Allergy Anaphylaxis Verified 05/23/23 06:03 apple Allergy Anaphylaxis Verified 05/23/23 06:03 bee venom protein (honey bee) Allergy Anaphylaxis Verified 05/23/23 06:03 carrot Allergy Anaphylaxis Verified 05/23/23 06:03 Home Medications Medication Instructions Recorded Confirmed Type multivitamin 1 tab PO DAILY 07/21/19 05/23/23 History pantoprazole 40 mg tablet,delayed 40 mg PO DAILY PRN Acid Reflux 01/16/20 05/23/23 History release epinephrine 0.3 mg/0.3 mL 0.3 mg IM Q4H PRN Allergic Reaction 06/20/20 05/23/23 History injection, auto-injector (EpiPen 2-Alvarez) levothyroxine 88 mcg tablet 88 mcg PO QAM 06/20/20 05/23/23 History CPAP Machine See Rx Instructions .Route 06/02/21 05/23/23 Rx .COMPLEX #1 ea Biofunction Supplement 1 tab PO QAM 03/22/23 05/23/23 History magnesium 1 tab PO DAILY 03/22/23 05/23/23 History meloxicam 15 mg tablet 15 mg PO QAM 03/22/23 05/23/23 History pyridoxine (vitamin B6) 25 mg 30 mg PO QAM 03/22/23 05/23/23 History tablet (Vitamin B-6) pitolisant 4.45 mg tablet See Rx Instructions PO DAILY #90 05/07/23 05/23/23 Rx tabs pregabalin 50 mg capsule 50 mg PO BID #60 caps 05/09/23 05/23/23 Rx duloxetine 60 mg capsule,delayed 60 mg PO DAILY #30 caps 05/13/23 05/23/23 Rx release Past Med/Surg History Medical History [place] [facility] [place]ervical radiculopathy denies change or worsening in chronic left upper extremity paresthesias Do not resuscitate status Per discussion with patient 03/29/23 GERD (gastroesophageal reflux disease) controlled, stable per pt Hepatic cyst enlarged and steatotic, 1.3 cm cyst R hepatic lobe 06/20/20 chest CTA Hiatal hernia s/p surgical intervention History of anesthesia complications following surgery in 06/2020, in [place], pt was hypoxic and apneic for 8- 9 hours post-op subsequently found to be covid +; "never had any trouble with anesthesia any time before or after or after this surgery" History of atrial fibrillation 2008 - s/p ablation - recurrence during COVID illness- on anticoagulation for several months and subsequently d/c'ed-follows w/ Dr. Kinney History of atrial flutter History of colon polyps History of COVID-19 06/2020, hospitalized at [facility] for 8 days; respiratory failure and unresponsiveness for 3 days, developed a-fib while hospitalized-placed on anticoagulants as precaution and no a-fib following discharge>"by definition he has long covid" History of nephrolithiasis several yrs ago Hypothyroidism Lumbar facet joint syndrome Lumbar spondylosis Mood disorder Nocturnal hypoxia following covid-still uses CPAP at HS Pain of left sacroiliac joint Renal cyst 1.9 cm upper pole of R kidney Right knee DJD Rupture of left quadriceps tendon Repair x3--01/22, 06/24 and 11/23>all failed procedures, no quad remains on the left Sleep apnea severe sleep apnea, follows with [facility] pulmonology-CPAP Surgical History History of cardiac catheterization atrial fib after having covid and on anticoagulants-was having aberrant rhythm, stress test indeterminate led to cath>no stents, [place] History of cardiac radiofrequency ablation x 2 (A.fib/A.flutter) History of carpal tunnel release Lt and left median release History of colonoscopy History of hernia repair History of lithotripsy History of repair of ACL Rt x 2 History of right inguinal hernia repair History of surgery left quadriceps repair 01/20/2020 LMA#5. Hx of LASIK BL Status post lumbar spine surgery for decompression of spinal cord Coflex placement L2-3 and L3-4 04/12/2023 Family History Father Prostate cancer Atrial fibrillation CHF (congestive heart failure) Stroke Mother Breast cancer Other No family history of adverse response to anesthesia Social History Smoking Status: Never smoker Second Hand Exposure: Yes (hx as child); Do You Dip or Chew Tobacco: No; Tobacco Cessation Education Requested by Patient: No Hx Alcohol Use: Yes Alcohol type: beer, wine and hard liquor Hx Substance Use: No Preferred Language: [place] Communication Ability: Effective Visual Impairment: No Limitations Hearing Ability: Normal Acid Blower Required: No Beliefs That Will Affect Care: None marital status: Current Living Situation: Spouse current occupational status: employed current occupation: [employer] Other Information That Helps Us Care for You: No Feels Safe at Home: Yes Safety Concerns: Feels Safe At This Time Assistive Devices: CPAP Physical Exam Physical Exam: Patient is alert and oriented Heart regular rhythm Lungs clear Results & Data Results & Data Vital Signs (Past 12 Hours) Vital Signs Temp Pulse Resp BP Pulse Ox O2 Del Method 05/23/23 06:29 36.8 C 72 18 138/76 95 Room Air 05/23/23 06:15 Room Air
[2023-05-23] MEDS ORDERED: KETAMINE 50 MG/5 ML SYRINGE ONE (07:44)
[2023-05-23] MEDS ORDERED: ceFAZolin 330 MG/ML 1 GM VIAL ONE (07:46)
[2023-05-23] MEDS ORDERED: BUPIVACAINE/EPINEPHRINE 0.25% 1:200,000 30 ML VIAL ONE (07:46)
[2023-05-23] MEDS ORDERED: FLOSEAL HEMOSTATIC MATRIX 10ML TOP ONE (08:32)
[2023-05-23] MEDS ORDERED: ATROPINE SULFATE 1MG/2.5ML SYR ONE (10:00)
[2023-05-23] MEDS ORDERED: ePHEDrine sulfate 50 MG/5 ML SYR ONE (10:00)
[2023-05-23] MEDS ORDERED: ePHEDrine sulfate 50 MG/ML AMP ONE (10:16)
--- NOTE | 2023-05-23 10:31 | Operative Report ---
Post Operative Report Pre & Post Diagnosis Operation Date: 05/23/23 07:45 Pre-Op Diagnosis: Lumbar spinal stenosis with radiculopathy HEAD: Normocephalic, no signs of injury or scalp lesions. Same Post-Op Diagnosis: Spinal Stenosis I identified the patient and participated in the time-out.: Yes Procedure Operation Date: 05/23/23 07:45 Actual Procedures #1 removal of posterior Coflex interlaminar spacers L2-L3 L3-L4. #2 revision decompression with bilateral medial facetectomies and foraminotomies L2-L3 L3- L4. #3 posterior spinal fusion L2-L3 L3-L4. #4 placement posterior instrumentation L2-L4. #5 position of interbody cage fusion L2-L3 L3-L4. #6 placement of spiral 11 x 26 mm at L2-L3 and 12 x 26 mm at L3-L4. #7 placement locally harvested morselized autograft and posterior gutters. #8 placement of I factor interbody space and infuse bone sponge graft in the posterior lateral gutters. Surgeon Gregg Chambers, DO Benzene Washer Operator Kayy Vasquez Estimated Blood Loss 500 Findings See Below The patient is 6 foot 1 weight 114 kg with a BMI in excess of 33. Patient's body habitus did contribute to significant technical difficulty with blood loss and exposure at least 50% increased operative time. Specimens None Indications This is a 58-year-old male who presents after undergoing a decompression but continued to have radiculopathy is here for revision decompression fusion. Description of Procedure Patient was met with identified informed consent obtained. Patient was then taken to the operative suite underwent patient placed in a prone position inject table top Eleazar frame. All bony promises well-padded eyes inspected to ensure no external pressure placed upon him. This point the lumbar spine was prepped and draped in sterile fashion. Sharp dissection with assistance pericardial performed down to and exposing the posterior Coflex implants remaining lamina at L2-L3 L3-L4 bilaterally. This included exposure of the transverse processes. Several tight retractors placed. Then we moved to the Coflex implants at L2-L3 L3-L4. I then from a caudal cephalad fashion performed a revision complete laminectomy of all 3 and L2 including bilateral male facetectomies and foraminotomies addressing severe spinal stenosis. Pedicle screws were then placed in L2-L3-L4 bilaterally with assistance of fluoroscopy and the properly sized ami placed. By way of transforaminal approach on the left complete discectomy of all 3 L4 was performed endplates guarded to subcortical bleeding bone and a 12 x 26 mm prior cage with I factor tapped in position. Then proceeded to L2-L3 and again by way of transforaminal approach on the left comp lete discectomy performed endplates guarded to subcortical mean bone and 11 x 26 mm prior cage with I factor tapped position. The rods were then locked into final position bilaterally. Transverse processes of L2-L3-L4 burred to subcortical bleeding bone. Infuse collagen sponge for mass graft and local autograft placed in the posterior gutters. 15 round LUCIA inserted. The incision was then closed with 1 Vicryl to fascia 2-0 Vicryl subcutaneously and 4 Monocryl for final skin closure. Steri-Strips sterile dressings placed. Patient waken taken to PACU in stable condition. Please note spinal cord monitoring was utilized at the procedure no changes noted. Lastly Kayy Vasquez was present at the entire surgeon while the patient positioning complex portion of the surgery and final skin closure. I attest to the content of the Intraoperative Record and any orders documented therein. Any exceptions are noted below.
[2023-05-23] MEDS: fentaNYL citrate PF 100 MCG/2 ML VIAL IV PRN ×4 (10:51→11:10)
[2023-05-23] MEDS: HYDROmorphone INJ 2 MG/ML SYR/VIAL IV PRN ×4 (11:29→11:49)
--- NOTE | 2023-05-23 11:31 | Fluoroscopy Report ---
FL lumbar spine 2-3V CLINICAL HISTORY: L2-L4 DECOMP/FUSION, REMOVAL OF COFLEX COMPARISON STUDY: MRI lumbar spine 05/16/2023 FLUOROSCOPY TIME: 39.7 seconds FLUOROSCOPY IMAGES: 2 EXPOSURE DOSE: 30.22 mGy FINDINGS: Postoperative body ami and screw fusion with discectomy changes are noted at what is labele d the L2-L4 levels. The exact numbering cannot be confirmed on this study secondary to magnification of the images. The hardware appears intact. No unexpected opaque foreign bodies identified. Multileve l spondylitic spurring. Note that the images were submitted following completion of the surgery. IMPRESSION: Fluoroscopic assistance as above. ACT 112: Negative or not required by law. Electronically signed by: Kevin Serra M.D. 05/23/2023 11:29 AM
[2023-05-23] MEDS ORDERED: NALOXONE HCL 0.4 MG/1 ML VIAL/CARP IV PRN (12:31)
[2023-05-23] MEDS ORDERED: DO NOT ADMINISTER PNEUMOCOCCAL VACCINE PRN (12:31)
[2023-05-23] MEDS ORDERED: DO NOT ADMINISTER FLU VACCINE PRN (12:31)
[2023-05-23] MEDS ORDERED: hydrOXYzine HCl 25 MG TAB PO PRN (12:31)
[2023-05-23] MEDS ORDERED: SOD PHOSPHATE/SOD BIPHOSPHATE ENEMA 132 ML BTL PR PRN (12:31)
[2023-05-23] MEDS ORDERED: ACETAMINOPHEN 500 MG TAB PO PRN (12:31)
[2023-05-23] MEDS ORDERED: LORazepam 0.5 MG TAB PO PRN (12:31)
[2023-05-23] MEDS ORDERED: ACETAMINOPHEN 1,000 MG/100 ML VIAL IV PRN (12:31)
[2023-05-23] MEDS ORDERED: ONDANSETRON 4 MG OD TAB PO PRN (12:31)
[2023-05-23] MEDS ORDERED: LACTATED RINGER'S 1,000 ML IV SCH (12:31)
[2023-05-23] MEDS ORDERED: ALUMINUM/MAGNESIUM SUSP 30 ML UDC PO PRN (12:31)
[2023-05-23] MEDS ORDERED: bisacodyL 10 MG SUPP PR PRN (12:31)
[2023-05-23] MEDS ORDERED: LORazepam 2 MG/1 ML VIAL IV PRN (12:31)
[2023-05-23] MEDS ORDERED: traMADol HCL 50 MG TABLET PO PRN (12:31)
[2023-05-23] MEDS ORDERED: PROMETHAZINE HCL 12.5 MG in SODIUM CHLORIDE 0.9% 50 ML IV PRN (12:31)
[2023-05-23] MEDS ORDERED: FAMOTIDINE 20 MG TAB PO PRN (12:31)
[2023-05-23] MEDS ORDERED: METOCLOPRAMIDE HCL INJ 5 MG/ML 2 ML VIAL IV PRN (12:31)
[2023-05-23] MEDS ORDERED: MAGNESIUM HYDROXIDE SUSP 30 ML UDC PO PRN (12:31)
[2023-05-23] MEDS ORDERED: diphenhydrAMINE Capsule 25 MG CAP PO PRN (12:31)
[2023-05-23] MEDS ORDERED: PANTOprazole 40 MG TAB PO PRN (12:31)
--- NOTE | 2023-05-23 13:09 | Consultation ---
Date of Consultation May 23, 2023 Assessment & Plan (1) Neurogenic claudication due to lumbar spinal stenosis: (2) Status post lumbar spine surgery for decompression of spinal cord: (3) Paroxysmal atrial fibrillation: (4) Hypothyroidism: (5) Excessive daytime sleepiness: (6) Sleep apnea: (7) GERD (gastroesophageal reflux disease): Plan Mr. Praneeth Alvarez is a 58 year old gentleman with past medical history notable for severe bakari, excessive daytime sleepiness, prior aa fib/flutter sp PVI/CTI ablation, GERD, and neurogenic claudication 2/2 spinal stenosis s/p decompression on 04/12 now s/p spacer removal and spinal fusion on 05/23 for whom medical comanagement consulted. Patient overall doing well and comorbidities stable. #Neurogenic Claudication 2/2 spinal stenosis -s/p 04/12 lumbar decompression L2-L3,L3-L4 -s/p 05/23 revision of decompression with bilateral facetectomies, foraminotomies, posterior fusion -Continue Pregabalin 50mg, Duloxetine 60mg -Pain management per Ortho-spine -DVT ppx per Ortho-spine -Follow am CBC/BMP -IS per ortho #Prior Atrial Fibrillation/Atrial Flutter s/p PVI and CTI ablation -Off beta marilu and AC -Recent ECHO 03/2023 with LAE dilation, mild regurg noted, EF 60-65%, stable study compared to 2019 -CTM #Hypothyroidism -Continue Levothyroxine 88mcg #Severe BAKARI -Continue CPAP #Excessive Daytime Sleepiness -Continue Pitolisant 17.8mg daily (patient supplied medication) #GERD -Continue Protonix DVT per ortho Bowel colace bid per request of patient, mirlax Dispo per Ortho-spine Thank you for this consultation for medical comanagement. We will continue to follow throughout this patient's admission. History of Present Illness Requesting Physician: Dr Chambers Reason for Consultation: Medical management Attending Physician: Gregg Chambers, DO History of Present Illness Mr. Praneeth Alvarez is a 58 year old gentleman with past medical history notable for severe bakari, excessive daytime sleepiness, prior aa fib/flutter sp PVI/CTI ablation, GERD, and neurogenic claudication 2/2 spinal stenosis s/p decompression on 04/12 now s/p spacer removal and spinal fusion on 05/23 for whom medical comanagement consulted. Patient's medications were reviewed at bedside. Patient denies any acute concerns, no chest pain, palpitations, acute post-operative pain or respirtaory distress. Patient eating lunch and tolerating well. Patient with home CPAP. Patient took all am meds as previously directed by prescribing provider. Allergies Allergy/AdvReac Type Severity Reaction Status Date / Time almond Allergy Anaphylaxis Verified 05/23/23 06:03 apple Allergy Anaphylaxis Verified 05/23/23 06:03 bee venom protein (honey bee) Allergy Anaphylaxis Verified 05/23/23 06:03 carrot Allergy Anaphylaxis Verified 05/23/23 06:03 Home Medications Medication Instructions Recorded Confirmed Type multivitamin 1 tab PO DAILY 07/21/19 05/23/23 History pantoprazole 40 mg tablet,delayed 40 mg PO DAILY PRN Acid Reflux 01/16/20 05/23/23 History release epinephrine 0.3 mg/0.3 mL 0.3 mg IM Q4H PRN Allergic Reaction 06/20/20 05/23/23 History injection, auto-injector (EpiPen 2-Alvarez) levothyroxine 88 mcg tablet 88 mcg PO QAM 06/20/20 05/23/23 History CPAP Machine See Rx Instructions .Route 06/02/21 05/23/23 Rx .COMPLEX #1 ea Biofunction Supplement 1 tab PO QAM 03/22/23 05/23/23 History magnesium 1 tab PO DAILY 03/22/23 05/23/23 History meloxicam 15 mg tablet 15 mg PO QAM 03/22/23 05/23/23 History pyridoxine (vitamin B6) 25 mg 30 mg PO QAM 03/22/23 05/23/23 History tablet (Vitamin B-6) pitolisant 4.45 mg tablet See Rx Instructions PO DAILY #90 05/07/23 05/23/23 Rx tabs pregabalin 50 mg capsule 50 mg PO BID #60 caps 05/09/23 05/23/23 Rx duloxetine 60 mg capsule,delayed 60 mg PO DAILY #30 caps 05/13/23 05/23/23 Rx release Patient History Medical History [facility] Cervical radiculopathy denies change or worsening in chronic left upper extremity paresthesias Do not resuscitate status Per discussion with patient 03/29/23 GERD (gastroesophageal reflux disease) controlled, stable per pt Hepatic cyst enlarged and steatotic, 1.3 cm cyst R hepatic lobe 06/20/20 chest CTA Hiatal hernia s/p surgical intervention History of anesthesia complications following surgery in 06/2020, in [place], pt was hypoxic and apneic for 8- 9 hours post-op subsequently found to be covid +; "never had any trouble with anesthesia any time before or after or after this surgery" History of atrial fibrillation 2008 - s/p ablation - recurrence during COVID illness- on anticoagulation for several months and subsequently d/c'ed-follows w/ Dr. Kinney History of atrial flutter History of colon polyps History of COVID-19 06/2020, hospitalized at [facility] for 8 days; respiratory failure and unresponsiveness for 3 days, developed a-fib while hospitalized-placed on anticoagulants as precaution and no a-fib following discharge>"by definition he has long covid" History of nephrolithiasis several yrs ago Hypothyroidism Lumbar facet joint syndrome Lumbar spondylosis Mood disorder Nocturnal hypoxia following covid-still uses CPAP at HS Pain of left sacroiliac joint Renal cyst 1.9 cm upper pole of R kidney Right knee DJD Rupture of left quadriceps tendon Repair x3--01/22, 06/24 and 11/23>all failed procedures, no quad remains on the left Sleep apnea severe sleep apnea, follows with [facility]ology-CPAP Surgical History History of cardiac catheterization atrial fib after having covid and on anticoagulants-was having aberrant rhythm, stress test indeterminate led to cath>no stents, [place] History of cardiac radiofrequency ablation x 2 (A.fib/A.flutter) History of carpal tunnel release Lt and left median release History of colonoscopy History of hernia repair History of lithotripsy History of repair of ACL Rt x 2 History of right inguinal hernia repair History of surgery left quadriceps repair 01/20/2020 LMA#5. Hx of LASIK BL Status post lumbar spine surgery for decompression of spinal cord Coflex placement L2-3 and L3-4 04/12/2023 Family History Father Prostate cancer Atrial fibrillation CHF (congestive heart failure) Stroke Mother Breast cancer Other No family history of adverse response to anesthesia Social History Smoking Status: Never smoker Second Hand Exposure: Yes (hx as child); Do You Dip or Chew Tobacco: No; Tobacco Cessation Education Requested by Patient: No Hx Alcohol Use: Yes Alcohol type: beer, wine and hard liquor Hx Substance Use: No Preferred Language: Bulgarian Communication Ability: Effective Visual Impairment: No Limitations Hearing Ability: Normal Physical Anthropologist Required: No Beliefs That Will Affect Care: None marital status: Current Living Situation: Spouse current occupational status: employed current occupation: [employer] Other Information That Helps Us Care for You: No Feels Safe at Home: Yes Safety Concerns: Feels Safe At This Time Assistive Devices: CPAP Review of Systems Review of Systems: Constitutional: (-) fever/chills, (-) recent loss of weight, (-) appetite changes, (-) night sweats. Head: (-) headache, (-) dizziness. Eye: (-) blurring of vision, (-) double vision, (-) redness. Ear: (-) hearing loss, (-) discharge, (-) vertigo Nose: (-) discharge, (-) bleeding, (-) congestion, (-) post nasal drip. Throat: (-) sore throat, (-) hoarseness of voice, (-) odynophagia. Cardiovascular: (-) chest pain, (-) palpitations, (-) syncope, (-) orthopnea, (- ) PND, (-) leg swelling. Respiratory: (-) shortness of breath, (-) cough, (-) wheezing, (-) hemoptysis. Neuro: (-) weakness in extremities, (-) numbness, (-) tingling, (-) tremor. Gastrointestinal: (-) belly pain, (-) belly distension, (-) nausea, (-) vomiting, (-) diarrhea, (-) constipation, (-) na, (-) hematemesis, (-) hematochezia, (-) bowel incontinence Genitourinary: (-) hematuria, (-) dysuria, (-) polyuria, (-) hesitancy, (-) frequency, (-) urinary incontinence. Musculoskeletal: (-) myalgia, (-) arthralgia. Skin: (-) rashes. Endocrine: (-) heat/cold intolerance. Psychiatry: (-) depression, (-) hallucination. Physical Exam Physical Exam: GENERAL APPEARANCE: AxOx4, generally well-appearing M, no distress HEENT: NC, AT. MMM. EOMI, clear conjunctiva, oropharynx clear. NECK: Supple without lymphadenopathy. No stiffness or restricted ROM. HEART: Normal rate and regular rhythm, normal S1/S1, no m/r/g LUNGS: CTAB, moving air well. No crackles or wheezes are heard. ABDOMEN: Soft, nontender, nondistended with good bowel sounds heard. EXTREMITIES: Without cyanosis, clubbing or edema. NEUROLOGICAL: Grossly nonfocal. Alert and oriented, moving all 4 extremities. CN not formally tested but appear grossly intact. Skin: Warm and dry without any rash. Results & Data Vital Signs (Past 12 Hours) Vital Signs Temp Pulse Pulse Resp BP Pulse Ox O2 Del Method 05/23/23 12:05 36.8 C 92 H 20 121/75 96 Nasal Cannula 05/23/23 11:55 36.8 C 82 21 122/71 95 Nasal Cannula 05/23/23 12:15 36.8 C 80 20 129/71 94 Nasal Cannula 05/23/23 11:45 36.8 C 78 14 119/62 99 Nasal Cannula 05/23/23 11:35 83 12 125/62 95 Nasal Cannula 05/23/23 11:25 94 H 19 114/68 98 Nasal Cannula 05/23/23 11:15 87 16 127/56 L 92 Nasal Cannula 05/23/23 11:05 82 23 120/53 L 95 Oxymask 05/23/23 10:55 85 14 142/74 H 96 Oxymask 05/23/23 10:46 36 C L 78 15 128/72 98 Oxymask 05/23/23 06:29 36.8 C 72 18 138/76 95 Room Air 05/23/23 06:15 Room Air O2 Flow Rate 05/23/23 12:05 2 05/23/23 11:55 2 05/23/23 12:15 2 05/23/23 11:45 2 05/23/23 11:35 3 05/23/23 11:25 3 05/23/23 11:15 2 05/23/23 11:05 4 05/23/23 10:55 6 05/23/23 10:46 6 05/23/23 06:29 05/23/23 06:15 Diagnostic Findings Lumbar Spine X-Ray 05/23/23 00:00 FL lumbar spine 2-3V CLINICAL HISTORY: L2-L4 DECOMP/FUSION, REMOVAL OF COFLEX COMPARISON STUDY: MRI lumbar spine 05/16/2023 FLUOROSCOPY TIME: 39.7 seconds FLUOROSCOPY IMAGES: 2 EXPOSURE DOSE: 30.22 mGy FINDINGS: Postoperative body ami and screw fusion with discectomy changes are noted at what is labeled the L2-L4 levels. The exact numbering cannot be confirmed on this study secondary to magnification of the images. The hardware appears intact. No unexpected opaque foreign bodies identified. Multilevel spondylitic spurring. Note that the images were submitted following completion of the surgery. IMPRESSION: Fluoroscopic assistance as above. ACT 112: Negative or not required by law. Electronically signed by: Kevin Serra M.D. 05/23/2023 11:29 AM Medications Administered Home Medications Medication Instructions Recorded Confirmed Last Taken multivitamin 1 tab PO DAILY 07/21/19 05/23/23 05/22/23 08:00 pantoprazole 40 mg tablet,delayed 40 mg PO DAILY PRN Acid Reflux 01/16/20 05/23/23 04/12/23 04:30 release epinephrine 0.3 mg/0.3 mL 0.3 mg IM Q4H PRN Allergic Reaction 06/20/20 05/23/23 Unknown injection, auto-injector (EpiPen 2-Alvarez) levothyroxine 88 mcg tablet 88 mcg PO QAM 06/20/20 05/23/23 05/23/23 04:30 CPAP Machine See Rx Instructions .Route 06/02/21 05/23/23 Unknown .COMPLEX #1 ea Biofunction Supplement 1 tab PO QAM 03/22/23 05/23/23 05/22/23 09:00 magnesium 1 tab PO DAILY 03/22/23 05/23/23 05/22/23 08:00 meloxicam 15 mg tablet 15 mg PO QAM 03/22/23 05/23/23 05/18/23 07:00 pyridoxine (vitamin B6) 25 mg 30 mg PO QAM 0805/23/23 04/08/23 tablet (Vitamin B-6) pitolisant 4.45 mg tablet See Rx Instructions PO DAILY #90 05/07/23 05/23/23 05/22/23 08:00 tabs pregabalin 50 mg capsule 50 mg PO BID #60 caps 05/09/23 05/23/23 05/23/23 04:30 duloxetine 60 mg capsule,delayed 60 mg PO DAILY #30 caps 05/13/23 05/23/23 05/23/23 04:30 release Active Medications Generic Name Dose Route Start Last Admin Trade Name Freq PRN Reason Stop Dose Admin Acetaminophen 1,000 mg 05/23/23 06:00 05/23/23 06:09 Acetaminophen 500 Mg Tab PO 05/23/23 18:00 1,000 mg PREOP NAILA Administration Celecoxib 200 mg 05/23/23 06:00 05/23/23 06:09 Celebrex 200 Mg Cap PO 05/23/23 18:00 200 mg PREOP NAILA Administration Fentanyl Citrate 50 mcg 05/23/23 07:15 05/23/23 11:10 Fentanyl Citrate Pf 100 Mcg/2 Ml Vial IV 05/23/23 15:15 50 mcg Q5M PRN Administration PACU Use Only-Pain Gabapentin 600 mg 05/23/23 06:00 05/23/23 06:10 Gabapentin 600 Mg Dose PO 05/23/23 18:00 Not Given PREOP NAILA Hydromorphone HCl 0.5 mg 05/23/23 07:15 05/23/23 11:49 Hydromorphone Inj 2 Mg/Ml Syr/Vial IV 05/23/23 15:15 0.5 mg Q5M PRN Administration PACU Use Only-Pain Cefazolin Sodium 2,000 mg in 15 mls @ 3.75 mls/min 05/23/23 06:00 05/23/23 13:35 Ancef 2000mg IV 05/23/23 18:00 Not Given PREOP NAILA Protocol
--- NOTE | 2023-05-23 14:13 | Anesthesiology Progress Note ---
Date of Service May 23, 2023 Anesthesia Post Procedure Vital Signs Vital Signs: Temp Pulse Pulse Pulse Resp BP Pulse Ox 05/23/23 13:40 36.6 C 82 18 122/71 94 05/23/23 13:00 36.4 C L 86 18 127/71 94 05/23/23 12:05 36.8 C 92 H 20 121/75 96 05/23/23 11:55 36.8 C 82 21 122/71 95 05/23/23 12:15 36.8 C 80 20 129/71 94 05/23/23 11:45 36.8 C 78 14 119/62 99 05/23/23 11:35 83 12 125/62 95 05/23/23 11:25 94 H 19 114/68 98 05/23/23 11:15 87 16 127/56 L 92 05/23/23 11:05 82 23 120/53 L 95 05/23/23 10:55 85 14 142/74 H 96 05/23/23 10:46 36 C L 78 15 128/72 98 05/23/23 06:29 36.8 C 72 18 138/76 95 05/23/23 06:15 O2 Del Method O2 Flow Rate 05/23/23 13:40 Room Air 05/23/23 13:00 Room Air 05/23/23 12:05 Nasal Cannula 2 05/23/23 11:55 Nasal Cannula 2 05/23/23 12:15 Nasal Cannula 2 05/23/23 11:45 Nasal Cannula 2 05/23/23 11:35 Nasal Cannula 3 05/23/23 11:25 Nasal Cannula 3 05/23/23 11:15 Nasal Cannula 2 05/23/23 11:05 Oxymask 4 05/23/23 10:55 Oxymask 6 05/23/23 10:46 Oxymask 6 05/23/23 06:29 Room Air 05/23/23 06:15 Room Air Pain Intensity Back: Pain Intensity: 3 Transfer of Care Handoff Completed per policy Notes Mental Status: alert / awake / arousable Patient Amnestic to Procedure: Yes Nausea / Vomiting: adequately controlled Pain: adequately controlled Airway Patency, RR, SpO2: stable & adequate BP & HR: stable & adequate Hydration State: stable & adequate Anesthetic Complications: no major complications apparent
[2023-05-23] MEDS: DOCUSATE SODIUM 100 MG CAP PO SCH ×2 (15:03→19:59)
[2023-05-23] MEDS: HYDROmorphone INJ 1 MG/ML SYRINGE IV PRN ×3 (15:03→23:03)
[2023-05-23] MEDS: oxyCODONE HCL IR 5 MG TAB (IMMEDIATE RELEASE) PO PRN ×2 (17:24→21:27)
[2023-05-23] MEDS: ceFAZolin 2000MG 2,000 MG/15 ML SYR IV SCH (17:25)
[2023-05-23] MEDS ORDERED: COUGH DROP (SUGAR FREE) LOZ 24 LOZ/1 BOX BUCCAL ONE (19:33)
[2023-05-23] MEDS: PREGABALIN 50 MG CAP PO SCH (20:02)
[2023-05-23] MEDS ORDERED: DOCUSATE SODIUM/SENNA 50/8.6MG TAB PO SCH (21:00)
[2023-05-24] MEDS: oxyCODONE HCL IR 5 MG TAB (IMMEDIATE RELEASE) PO PRN ×2 (00:46→14:25)
[2023-05-24] MEDS: ceFAZolin 2000MG 2,000 MG/15 ML SYR IV SCH (00:46)
[2023-05-24] MEDS: HYDROmorphone INJ 1 MG/ML SYRINGE IV PRN ×5 (01:59→21:09)
[2023-05-24] MEDS: LEVOTHYROXINE SODIUM 88 MCG TABLET PO SCH (05:14)
[2023-05-24] MEDS: POLYETHYLENE (MIRALAX) 17 GM PACK PO SCH ×3 (05:14→18:09)
[2023-05-24 06:51] LABS: Basophils # (auto) 0.02 K/uL (0.00-0.20); Basophils % (auto) 0.2 %; Eosinophils # (auto) 0.13 K/uL (0.00-0.50); Eosinophils % (auto) 1.1 %; Hematocrit (blood only) 38.4 % (42.0-52.0); Hemoglobin 12.9 g/dl (14.0-18.0); Immature Granulocytes # (auto) 0.07 K/uL (0.01-0.20); Immature Granulocytes % (auto) 0.6 %; Lymphocytes # (auto) 1.85 K/uL (1.20-3.40); Mean Corpuscular Hemoglobin 30.1 pg (25.0-34.0); Mean Corpuscular Hgb Conc 33.6 g/dL (32.0-36.0); Mean Corpuscular Volume 89.5 fL (80.0-100.0); Mean Platelet Volume 9.7 fL (9.4-12.4); Monocytes # (auto) 1.02 K/uL (0.11-0.59); Monocytes % (auto) 8.3 %; Neutrophils # (auto) 9.23 K/uL (1.40-6.50); Neutrophils % (auto) 74.8 %; Platelet Count 213 K/uL (130-400); RDW Coefficient of Variation 13.1 % (11.5-14.5); RDW Standard Deviation 42.8 fL (36.4-46.3); Red Blood Count 4.29 M/uL (4.70-6.10); White Blood Count 12.32 K/ul (4.8-10.8)
[2023-05-24 07:10] LABS: BUN Creatinine Ratio 18.2 (10-20); Calcium 8.8 mg/dl (8.6-10.3); Creatinine Clr Calc Pharmacy 136.7 ml/min; Est GFR (African American) 115.1 ml/min; Est GFR (Non-African American) 99.3 ml/min
[2023-05-24] MEDS ORDERED: SODIUM CHLORIDE 0.9% 1,000 ML IV ONE (08:34)
[2023-05-24] MEDS: dexAMETHasone 6 MG in SYRINGE 0 ML IV SCH (09:26)
[2023-05-24] MEDS: DOCUSATE SODIUM 100 MG CAP PO SCH ×2 (09:27→21:08)
[2023-05-24] MEDS: MAGNESIUM OXIDE 400 MG TAB PO SCH (09:27)
[2023-05-24] MEDS: DULoxetine HCL 60 MG CAP PO SCH (09:27)
[2023-05-24] MEDS: MULTIVITAMIN TAB PO SCH (09:28)
[2023-05-24] MEDS: PREGABALIN 50 MG CAP PO SCH ×2 (09:32→21:08)
[2023-05-24] MEDS: HYDROmorphone INJ 0.5 MG/0.5 ML SYR IV PRN (11:38)
[2023-05-24] MEDS: SENNA 8.6 MG TAB PO SCH (11:47)
[2023-05-24] MEDS: PANTOprazole 40 MG TAB PO SCH (11:47)
--- NOTE | 2023-05-24 11:47 | Orthopedic Progress Note ---
Date of Service May 24, 2023 Assessment & Plan (1) Status post lumbar spine surgery for decompression of spinal cord: Plan: This time we will continue physical therapy monitor his LUCIA output anticipate discharge home this weekend most likely with his drain. Admission and Anticipated Discharge Date Admission Date: May 23, 2023 Subjective Back pain is controlled leg symptoms markedly improved Physical Exam Physical Exam: Patient is up and ambulating halls. Skin strength testing. Appears comfortable. Results & Data Vital Signs (Past 12 Hours) Vital Signs Temp Pulse Resp BP Pulse Ox O2 Del Method 05/24/23 07:33 36.7 C 66 18 103/59 L 99 Room Air 05/24/23 03:47 36.4 C L 63 18 104/64 97 Room Air
[2023-05-24] MEDS: COUGH DROP (SUGAR FREE) LOZ 24 LOZ/1 BOX BUCCAL PRN (11:52)
--- NOTE | 2023-05-24 14:42 | Hospitalist Progress Note ---
Date of Service May 24, 2023 Assessment & Plan (1) Neurogenic claudication due to lumbar spinal stenosis: (2) Status post lumbar spine surgery for decompression of spinal cord: (3) Paroxysmal atrial fibrillation: (4) Hypothyroidism: (5) Excessive daytime sleepiness: (6) Sleep apnea: (7) GERD (gastroesophageal reflux disease): Plan Mr. Praneeth Alvarez is a 58 year old gentleman with past medical history notable for severe bakari, excessive daytime sleepiness, prior aa fib/flutter sp PVI/CTI ablation, GERD, and neurogenic claudication 2/2 spinal stenosis s/p decompression on 04/12 now s/p spacer removal and spinal fusion on 05/23 for whom medical comanagement consulted. Patient overall doing well and comorbidities stable. Lumbar spinal stenosis with radiculopathy S/P lumbar decompression, fusion surgery by Dr. Chambers on 05/23/2023 Expected postoperative acute blood loss anemia Pain control, activity, wound care, DVT prophylaxis as per primary team Continue incentive spirometry Continue bowel regimen Continue PT OT Fall precautions Prior Atrial Fibrillation/Atrial Flutter s/p PVI and CTI ablation Off beta marilu and AC Recent ECHO 03/2023 with LAE dilation, mild regurg noted, EF 60-65%, stable study compared to 2019 Monitor Hypothyroidism Continue Levothyroxine Severe BAKARI Continue CPAP Excessive Daytime Sleepiness Continue Pitolisant 17.8mg daily (patient supplied medication) GERD Continue Protonix DVT Px Per ortho Admission and Anticipated Discharge Date Admission Date: May 23, 2023 Subjective Patient is seen and examined at bedside Back pain at surgical site is controlled + Flatus, no bowel movement this morning Denies any chest pain, dyspnea, dizziness, nausea, vomiting, abdominal pain No other complaints Review of Systems Review of Systems: All systems reviewed & are unremarkable except as noted in Subjective Physical Exam Physical Exam: Physical Exam: Vitals signs as noted above General Appearance:Moderately built and nourished, no apparent distress Head: normocephalic, Atraumatic Eyes: normal inspection, EOMI Neck: supple, Trachea midline Respiratory/Chest: Normal breath sounds, CTA, No accessory muscle use Cardiovascular: S1, S2, No murmur Abdomen/GI:Soft, Non tender, Bowel sounds present Back: +Surgical site in dressing, +drain Extremities/Musculoskeletal:normal inspection, Trace pedal edema Neurologic/Psych:AAOX3, grossly no focal neurological deficits Skin: normal color, warm Results & Data Results & Data Vital Signs (Past 12 Hours) Vital Signs Temp Pulse Resp BP Pulse Ox O2 Del Method 05/24/23 07:33 36.7 C 66 18 103/59 L 99 Room Air 05/24/23 03:47 36.4 C L 63 18 104/64 97 Room Air Laboratory Results Short CBC 05/24/23 Range/Units 06:30 WBC 12.32 H (4.8-10.8) K/ul Hgb 12.9 L (14.0-18.0) g/dl Hct 38.4 L (42.0-52.0) % Plt Count 213 (130-400) K/uL BMP 05/24/23 06:30 Sodium 138 Potassium 4.0 Chloride 102 Carbon Dioxide 30 BUN 14 Creatinine 0.77 Glucose 108 H Calcium 8.8
[2023-05-25] MEDS: POLYETHYLENE (MIRALAX) 17 GM PACK PO SCH ×3 (00:07→11:58)
[2023-05-25] MEDS: HYDROmorphone INJ 1 MG/ML SYRINGE IV PRN ×3 (00:08→12:08)
[2023-05-25] MEDS: LEVOTHYROXINE SODIUM 88 MCG TABLET PO SCH (06:17)
[2023-05-25] MEDS: HYDROmorphone INJ 0.5 MG/0.5 ML SYR IV PRN (06:26)
[2023-05-25 06:39] LABS: Hemoglobin 11.4 g/dl (14.0-18.0); Mean Corpuscular Hemoglobin 30.4 pg (25.0-34.0); Mean Corpuscular Hgb Conc 33.5 g/dL (32.0-36.0); Mean Corpuscular Volume 90.7 fL (80.0-100.0); Platelet Count 172 K/uL (130-400); RDW Standard Deviation 43.1 fL (36.4-46.3); Red Blood Count 3.75 M/uL (4.70-6.10); White Blood Count 9.43 K/ul (4.8-10.8)
[2023-05-25 07:14] LABS: BUN Creatinine Ratio 17.9 (10-20); Calcium 8.4 mg/dl (8.6-10.3); Creatinine Clr Calc Pharmacy 157.1 ml/min; Est GFR (African American) 121.9 ml/min; Est GFR (Non-African American) 105.2 ml/min; Magnesium 2.1 mg/dl (1.7-2.4); Potassium 4.8 mmol/L (3.5-5.1)
[2023-05-25] MEDS: PREGABALIN 50 MG CAP PO SCH (09:30)
[2023-05-25] MEDS: DULoxetine HCL 60 MG CAP PO SCH (09:31)
[2023-05-25] MEDS: PANTOprazole 40 MG TAB PO SCH (09:31)
[2023-05-25] MEDS: SENNA 8.6 MG TAB PO SCH (09:31)
[2023-05-25] MEDS: DOCUSATE SODIUM 100 MG CAP PO SCH (09:31)
[2023-05-25] MEDS: MAGNESIUM OXIDE 400 MG TAB PO SCH (09:31)
[2023-05-25] MEDS: dexAMETHasone 6 MG in SYRINGE 0 ML IV SCH (09:31)
[2023-05-25] MEDS: MULTIVITAMIN TAB PO SCH (09:31)
[2023-05-25] MEDS: oxyCODONE HCL IR 5 MG TAB (IMMEDIATE RELEASE) PO PRN (09:38)
--- NOTE | 2023-05-25 10:17 | Discharge Summary ---
Date of Service May 25, 2023 Admission HPI Per Admitting Provider This is a 58-year-old male well-known to me presents with chronic persistent back and leg pain despite previous decompression he continues to have radiculopathy subsequently is here for lumbar fusion. Principal Diagnosis Lumbar spinal stenosis with radiculopathy Discharge Data Allergies Allergy/AdvReac Type Severity Reaction Status Date / Time almond Allergy Anaphylaxis Verified 05/23/23 06:03 apple Allergy Anaphylaxis Verified 05/23/23 06:03 bee venom protein (honey bee) Allergy Anaphylaxis Verified 05/23/23 06:03 carrot Allergy Anaphylaxis Verified 05/23/23 06:03 Consultations 05/23/23 12:31 Consult Hospitalist Routine Procedures Performed Operation Date: 05/23/23 07:45 Actual Procedures p L2-L4 Decompression and Fusion, Spinal Cord Monitoring(Not Applicable) - Gregg Chambers DO s Removal of Coflex,(Not Applicable) - Gregg Chambers DO Ordered Studies 05/23/23 [place] lumbar spine 2-3V Routine Hospital Course (1) Status post lumbar spine surgery for decompression of spinal cord: Patient with lumbar decompression fusion tolerated this well was taken to orthopedic for postoperative. Postoperatively he progressed appropriately. Ambulating well. Leg pain markedly improved. Subsequently discharged home. Patient was discharged home with drain will follow-up for removal in the next few days. Further details instructions can be found in chart for further review. Total Time Total Time Spent Total Time Spent (In Minutes): 20 minutes Discharge Plan Discharge Items Patient Disposition: Home - Self-Care Reason For Visit: Spinal Stenosis, Lumbar Region without Neurogenic Discharge Diagnosis: Lumbar spinal stenosis with neurogenic claudication Activity: As commented below Non-emergency contact: Primary Care Provider Call non-emergency contact if: you have any medication questions Follow-up/Referrals: Joe Glasgow MD [Primary Care Provider] - (Date & Time 05/29/2023 10:40 AM Provider Roseann Burton MD Department General Internal Medicine [facility] ) Diet: Regular Addtl Attending Provider Instructions: ACTIVITY RECOMMENDATIONS: SELF CARE INSTRUCTIONS AFTER THORACIC/LUMBAR FUSIONS 1. You may walk to your tolerance. It is good exercise for your legs and back. Expect some back and intermittent leg aches and pains. 2. You may perform "counter-top" level activities (make a sandwich, raul with a project, etc.). 3. No bending or lifting of more than 10 pounds or back twisting of any nature (roll like a log when turning in bed). 4. You may ride in a car for 20-30 minutes at a time. No driving until after your first visit with your doctor. 5. Frequent changes of position and restricting sitting to 30 minutes at a time will help limit the amount of back spasms and stiffness you may experience. 6. You may discontinue the use of ambulatory aids (cane, crutches, etc.) once your strength and confidence allow. 7. You may instructor physical education the shower and let water strike your incision when you arrive home at least once daily. Do not take a tub bath, sit in a hot tub or go into a swimming pool until after your first recheck in the office. SPECIAL CARE INSTRUCTIONS: VERY IMPORTANT TO READ AND REVIEW A. Your surgical incision has been closed with a cosmetic suture under the skin that will dissolve in about 6 weeks. In 14 days, you can use a pair of clean scissors and cut the suture that is left outside of the skin at the ends of your incision. 1. The small skin tapes can be removed 7 days after surgery if they have not fallen off by that point. 2. You may keep the wound open to air as much as possible to promote healing after post-op day number 5 unless told otherwise by your doctor. 3. If you think the wound looks like it is becoming infected (redness or worsening drainage) and/or you are experiencing fever, chill or worsening back pain and muscle spasms, contact the office so that we may evaluate you as soon as possible. B. Complications are uncommon, but please contact us if you have any signs or symptoms of: 1. wound infection (fever higher than 102.5 degrees F, redness, separation of wound, drainage, or increasing pain from the incision) 2. blood clots in legs (pain, swelling, redness and warmth in legs) 3. urinary tract infection (fever higher than 102.5 degrees F, burning upon urination or increased frequency of urination) 4. nerve problems (inability to walk on your toes or heels, numbness, loss of bowel or bladder control) 5. any other symptoms that concern you C. Please call the office at if you have any concerns or questions about your operation or recovery. D. No smoking! Smoking drastically decreases the chance of a solid fusion. E. Do not take any anti-inflammatory medications (Indocin, Advil, Motrin, Aspirin, Naprosyn, etc.) as these may inhibit the chance of a solid fusion. Tylenol is okay to take for pain. MANAGING PAIN AFTER SPINAL SURGERY 1. Narcotic medication is intended for short-term use and will be provided for surgical pain. Surgical pain usually lasts for a period of 4-6 weeks. Narcotic medication includes Percocet, Vicodin, Darvocet, Tylenol #3 or Lortab. 2. Longer-term pain is more appropriately treated with non-narcotic medication such as Tylenol ES. 3. Muscle spasm is not appropriately treated with narcotics. Muscle relaxers such as Soma, Flexeril or Skelaxin can be used along with Tylenol ES. 4. Remember that we all live with some "aches and pains". This is not unusual or uncommon after an injury or as we get older. a. Back pain is expected and may include muscle spasms for 4 to 6 weeks after surgery. The pain should gradually improve. If the pain worsens for no apparent reason, please contact the office. b. Intermittent leg pain may also be experienced and should not be concerned about unless it worsens for no apparent reason. If so, please contact the office. 5. We will provide appropriate medication within the normal guidelines of their prescribed use. We will also be very cautious and aware of potential abuse and extended duration of patients' medication needs. a. Pain medications are for your comfort and to assist with sleep and rest so that the tissue can heal. They are not provided in order to return to normal activity and should not be used through the day. To do so or worsening pain at night can result from ongoing tissue damage and development of tolerance to the prescribed medicine. 6. Please allow 2-3 days to process refills. Prescriptions will not be mailed but must be picked up at the office. FOLLOW UP VISIT: Keep your scheduled follow-up appointment. Any questions, please call the office at . Pending Studies at Discharge: No Stand-Alone Forms: [employer], Smoking Cessation Medications and DC Order Prescriptions: New tramadol 50 mg tablet 50 mg PO Q6H PRN (Reason: pain, moderate) Qty: 30 0RF oxycodone 5 mg tablet 5 mg PO Q6H PRN (Reason: pain) Qty: 30 0RF Continued pregabalin 50 mg capsule 50 mg PO BID Qty: 60 2RF multivitamin tablet 1 tab PO DAILY pitolisant 4.45 mg tablet See Rx Instructions PO DAILY Qty: 90 2RF Patient Comments: has not started yet. Rx Instructions: 8.9 mg daily for one week, then 17.8 mg daily duloxetine 60 mg capsule,delayed release(DR/EC) 60 mg PO DAILY Qty: 30 2RF CPAP Machine Misc See Rx Instructions .ROUTE .COMPLEX Qty: 1 0RF Rx Instructions: CPAP at 13 cm of water, mask fit to patient comfort, heated humidification, compliance download capabilities, Care Plus oxygen; pantoprazole 40 mg tablet,delayed release (DR/EC) 40 mg PO DAILY PRN (Reason: Acid Reflux) levothyroxine 88 mcg tablet 88 mcg PO QAM epinephrine [EpiPen 2-Alvarez] 0.3 mg/0.3 mL Auto-Injector 0.3 mg IM Q4H PRN (Reason: Allergic Reaction) pyridoxine (vitamin B6) [Vitamin B-6] 25 mg Tablet 30 mg PO QAM magnesium Tablet 1 tab PO DAILY Patient Comments: 125mg meloxicam 15 mg tablet 15 mg PO QAM Biofunction Supplement 1 tab PO QAM Discharge Orders: Discharge Order (Routine); Ordered 05/25/23 Ordered By: Gregg Chambers Admission Data Admit Date/Time: 05/23/23 10:35 Attending Provider: Gregg Chambers Admit Provider: Gregg Chambers Primary Care Provider: Joe Glasgow Other Providers: Malathi Burgess ; Dipesh Mtz
[2023-05-25] MEDS: COUGH DROP (SUGAR FREE) LOZ 24 LOZ/1 BOX BUCCAL PRN (11:09)
--- NOTE | 2023-05-25 11:09 | Hospitalist Progress Note ---
Date of Service May 25, 2023 Assessment & Plan (1) Neurogenic claudication due to lumbar spinal stenosis: (2) Status post lumbar spine surgery for decompression of spinal cord: (3) Paroxysmal atrial fibrillation: (4) Hypothyroidism: (5) Excessive daytime sleepiness: (6) Sleep apnea: (7) GERD (gastroesophageal reflux disease): Plan Mr. Praneeth Alvarez is a 58 year old gentleman with past medical history notable for severe bakari, excessive daytime sleepiness, prior aa fib/flutter sp PVI/CTI ablation, GERD, and neurogenic claudication 2/2 spinal stenosis s/p decompression on 04/12 now s/p spacer removal and spinal fusion on 05/23 for whom medical comanagement consulted. Patient overall doing well and comorbidities stable. Lumbar spinal stenosis with radiculopathy S/P lumbar decompression, fusion surgery by Dr. Chambers on 05/23/2023 Expected postoperative acute blood loss anemia Pain control, activity, wound care, DVT prophylaxis as per primary team Continue incentive spirometry Continue bowel regimen Continue PT OT Fall precautions Hb 11.4 today Plan to be discharged home today Prior Atrial Fibrillation/Atrial Flutter s/p PVI and CTI ablation Off beta marilu and AC Recent ECHO 03/2023 with LAE dilation, mild regurg noted, EF 60-65%, stable study compared to 2019 Monitor Hypothyroidism Continue Levothyroxine Severe BAKARI Continue CPAP Excessive Daytime Sleepiness Continue Pitolisant 17.8mg daily (patient supplied medication) GERD Continue Protonix DVT Px Per ortho Admission and Anticipated Discharge Date Admission Date: May 23, 2023 Subjective Patient is seen and examined at bedside Ambulated in hallway with no issues Back pain is well controlled Denies any chest pain, dyspnea, dizziness, nausea, vomiting, abdominal pain No other complaints Review of Systems Review of Systems: All systems reviewed & are unremarkable except as noted in Subjective Physical Exam Physical Exam: Physical Exam: Vitals signs as noted above General Appearance:Moderately built and nourished, no apparent distress Head: normocephalic, Atraumatic Eyes: normal inspection, EOMI Neck: supple, Trachea midline Respiratory/Chest: Normal breath sounds, CTA, No accessory muscle use Cardiovascular: S1, S2, No murmur Abdomen/GI:Soft, Non tender, Bowel sounds present Back: +Surgical site in dressing, +drain Extremities/Musculoskeletal:normal inspection, Trace pedal edema Neurologic/Psych:AAOX3, grossly no focal neurological deficits Skin: normal color, warm Results & Data Results & Data Vital Signs (Past 12 Hours) Vital Signs Temp Pulse Resp BP Pulse Ox O2 Del Method 05/25/23 10:28 36.9 C 78 16 116/64 97 05/25/23 07:39 36.9 C 78 16 116/64 97 Room Air Laboratory Results Short CBC 05/25/23 Range/Units 05:37 WBC 9.43 (4.8-10.8) K/ul Hgb 11.4 L (14.0-18.0) g/dl Hct 34.0 L (42.0-52.0) % Plt Count 172 (130-400) K/uL BMP 05/25/23 05:37 Sodium 136 Potassium 4.8 Chloride 103 Carbon Dioxide 31 BUN 12 Creatinine 0.67 Glucose 98 Calcium 8.4 L
== END 2023-05-25 13:22 | disposition home or self-care (01) | DRG 454 ==
LOC: ASU 05:47 → 3E 10:35